=== PATIENT | male | born 2000 | race Caucasian/White ===

== ENCOUNTER 2023-01-27 17:09 | Inpatient (IN) | payer MEDICAID, OTHER, SELFPAY ==
[2023-01-27 17:13] VITALS: BP 141/86; PULSE 88; RESP 18; TEMP 36.1; O2SAT 97; BMI 43.4
--- NOTE | 2023-01-27 17:23 | ED_ITS ---
HPI - Psych General Chief Complaint: Psychiatric Symptoms <Nakia Dvaies NP - Last Filed: 01/27/23 17:26> Stated Complaint: hearing voices, not sleeping <Nakia Davies NP - Last Filed: 01/27/23 17:26> Time Seen by Provider: 01/27/23 17:35 <Nakia Davies NP - Last Filed: 01/27/23 17:26> Source: patient and family <Jean-Paul Richards MD - Last Filed: 01/28/23 01:08> Mode of arrival: ambulatory <Jean-Paul Richards MD - Last Filed: 01/28/23 01:08> Limitations: no limitations <Jean-Paul Richards MD - Last Filed: 01/28/23 01:08> History of Present Illness HPI Narrative: Patient with history of schizoaffective disorder on olanzapine brought by father as he was hearing voices with visual hallucination not taking his medication no SI or HI patient denies any complaints when questions does not know why he is here <Jean-Paul Richards MD - Last Filed: 01/28/23 01:08> Related Data Home Medications: Home Medications Medication Instructions Recorded Confirmed olanzapine 5 mg tablet 5 mg PO DAILY 01/27/23 01/27/23 <Nakia Davies NP - Last Filed: 01/27/23 17:26> Allergies/Adverse Reactions: Allergies Allergy/AdvReac Type Severity Reaction Status Date / Time No Known Allergies Allergy Verified 01/27/23 17:17 <Nakia Davies NP - Last Filed: 01/27/23 17:26> Review of Systems Review of Systems: Yes all other systems are reviewed and are negative <Jean-Paul Richards MD - Last Filed: 01/28/23 01:08> [facility] Social History Social History: Social History Advance Directives: No Advance Directives Information Provided: No Healthcare Proxy: No Guardian: No <Nakia Davies NP - Last Filed: 01/27/23 17:26> Physical Exam Vital Signs: Vital Signs: Last Vital Signs Temp 97.3 F 01/28/23 02:31 Pulse 66 01/28/23 02:31 Resp 16 01/28/23 02:31 BP 161/104 H 01/28/23 02:31 Pulse Ox 100 01/28/23 02:31 O2 Del Method Room Air 01/28/23 02:31 BMI result Body Mass Index 43.4 <Nakia Davies NP - Last Filed: 01/27/23 17:26> Vital Signs: Last Vital Signs Temp 97.3 F 01/28/23 02:31 Pulse 66 01/28/23 02:31 Resp 16 01/28/23 02:31 BP 161/104 H 01/28/23 02:31 Pulse Ox 100 01/28/23 02:31 O2 Del Method Room Air 01/28/23 02:31 BMI result Body Mass Index 43.4 <Jean-Paul Richards MD - Last Filed: 01/28/23 01:08> Vital Signs: Last Vital Signs Temp 97.3 F 01/28/23 02:31 Pulse 66 01/28/23 02:31 Resp 16 01/28/23 02:31 BP 161/104 H 01/28/23 02:31 Pulse Ox 100 01/28/23 02:31 O2 Del Method Room Air 01/28/23 02:31 BMI result Body Mass Index 43.4 <Jimbo Ponce MD - Last Filed: 01/28/23 07:35> Appearance: Alert. Oriented X3. No acute distress. Eyes: PERRLA, No Nystagmus ENT: Pharynx normal. Oral Mucosa moist Neck: Normal inspection. Neck supple. CVS: Normal heart rate and rhythm. Pulses normal. Respiratory: No respiratory distress. Equal air entry bilateral, no wheezing/rales/rhonchi Abdomen: Soft and nontender. Bowel sounds are present, no mass palpable, no CVA tenderness Skin: Skin warm and dry. Normal skin color. Normal skin turgor. Extremities: No lower extremity edema. No calf tenderness psych: Mood stable no SA/HI denies any hallucinations or delusions Neuro: Oriented X 3. No motor deficit. No sensory deficit.No cerebellar signs , cranial nerves II-XII intact <Jean-Paul Richards MD - Last Filed: 01/28/23 01:08> Course Course Course Narrative: This is a rapid medical exam. Deferred additional HPI, ROS, PE to primary provider. 22 yo male here w/ hallucinations, stopped taking meds. Brought direct to behavioral pod <Nakia Davies NP - Last Filed: 01/27/23 17:26> Reevaluation(s) Reevaluation #1: 22-year-old male presenting for crisis evaluation. He recently stopped taking his medications. He presented with hallucinations. <Jimbo Ponce MD - Last Filed: 01/28/23 07:35> Time: 07:35 <Jimbo Ponce MD - Last Filed: 01/28/23 07:35> Medical Decision Making Medical Decision Making MDM Narrative: Patient with psychotic disorder will get care time involved pending that disposition <Jean-Paul Richards MD - Last Filed: 01/28/23 01:08> Lab Data [facility] Lab Attestation statement: I reviewed the patient's lab results. <Jean-Paul Richards MD - Last Filed: 01/28/23 01:08> Result Diagrams: 01/27/23 18:14 01/27/23 18:14 <Nakia Davies NP - Last Filed: 01/27/23 17:26> Labs: Lab Results 01/27/23 01/27/23 01/27/23 Range/Units 17:38 17:38 18:14 WBC 10.9 H (4.8-10.8) X10*3/uL RBC 5.00 (4.60-5.80) X10*6/uL Hgb 15.2 (14.0-18.0) g/dl Hct 44.8 (42.0-52.0) % MCV 89.6 (80.0-98.0) fL MCH 30.4 (27.0-33.0) pg MCHC 33.9 (31.0-36.0) g/dl RDW 13.6 (11.0-16.0) % Plt Count 387 (160-400) X10*3/uL MPV 9.4 (9.4-12.4) fL Immature Gran % (Auto) 0.6 H (0.0-0.4) % Neut % (Auto) 65.6 (45-73) % Lymph % (Auto) 24.8 (20-40) % [place] % (Auto) 6.3 (2-11) % Eos % (Auto) 2.0 (0-4) % Baso % (Auto) 0.7 (0-2) % Lymph # (Auto) 2.7 (1.2-4.9) X10*3/uL [place] # (Auto) 0.7 (0.1-1.2) X10*3/uL Eos # (Auto) 0.2 (0.0-0.4) X10*3/uL Baso # (Auto) 0.1 (0.0-0.2) X10*3/uL Abs Immat Gran (auto) 0.06 H (0.00-0.03) X10*3/uL Absolute Neuts (auto) 7.1 (2.0-8.3) x10*3/uL Absolute Nucleated RBC 0.000 (0.0-0.012) X10*3/uL Nucleated RBC % (auto) 0.0 (0.0-0.2) /100WBC Sodium (135-145) mmol/L Potassium (3.3-5.1) mmol/L Chloride (96-108) mmol/L Carbon Dioxide (22-29) mmol/L Anion Gap (12-20) BUN (9-16) mg/dL Creatinine (0.5-1.4) mg/dL Estim Creat Clear Calc Estimated GFR Random Glucose (60-115) mg/dL Calcium (8.4-10.2) mg/dL Total Bilirubin (0.0-1.0) mg/dL Direct Bilirubin (0.0-0.5) mg/dL AST (5-37) U/L ALT (0-40) U/L Alkaline Phosphatase (39-117) U/L Total Protein (6.5-8.0) g/dL Albumin (3.5-5.0) g/dL Urine Opiates Screen Not Detected (Not Detect) Urine Fentanyl Screen Not Detected (Not Detect) Ur Barbiturates Screen Not Detected (Not Detect) Ur Phencyclidine Scrn Not Detected (Not Detect) Ur Amphetamines Screen Not Detected (Not Detect) U Benzodiazepines Scrn Not Detected (Not Detect) Urine Cocaine Screen Not Detected (Not Detect) U Marijuana (THC) Screen POSITIVE H (Not Detect) Ethyl Alcohol mg/dL COVID-19 ([facility]) Negative (Negative) COVID-19 Clin Com See Note 01/27/23 01/27/23 Range/Units 18:14 18:14 WBC (4.8-10.8) X10*3/uL RBC (4.60-5.80) X10*6/uL Hgb (14.0-18.0) g/dl Hct (42.0-52.0) % MCV (80.0-98.0) fL MCH (27.0-33.0) pg MCHC (31.0-36.0) g/dl RDW (11.0-16.0) % Plt Count (160-400) X10*3/uL MPV (9.4-12.4) fL Immature Gran % (Auto) (0.0-0.4) % Neut % (Auto) (45-73) % Lymph % (Auto) (20-40) % [place] % (Auto) (2-11) % Eos % (Auto) (0-4) % Baso % (Auto) (0-2) % Lymph # (Auto) (1.2-4.9) X10*3/uL [place] # (Auto) (0.1-1.2) X10*3/uL Eos # (Auto) (0.0-0.4) X10*3/uL Baso # (Auto) (0.0-0.2) X10*3/uL Abs Immat Gran (auto) (0.00-0.03) X10*3/uL Absolute Neuts (auto) (2.0-8.3) x10*3/uL Absolute Nucleated RBC (0.0-0.012) X10*3/uL Nucleated RBC % (auto) (0.0-0.2) /100WBC Sodium 141 (135-145) mmol/L Potassium 3.8 (3.3-5.1) mmol/L Chloride 103 (96-108) mmol/L Carbon Dioxide 30 H (22-29) mmol/L Anion Gap 12 (12-20) BUN 10 (9-16) mg/dL Creatinine 1.12 (0.5-1.4) mg/dL Estim Creat Clear Calc 150.5 Estimated GFR > 60 Random Glucose 100 (60-115) mg/dL Calcium 9.9 (8.4-10.2) mg/dL Total Bilirubin 0.3 (0.0-1.0) mg/dL Direct Bilirubin 0.1 (0.0-0.5) mg/dL AST 28 (5-37) U/L ALT 46 H (0-40) U/L Alkaline Phosphatase 95 (39-117) U/L Total Protein 7.7 (6.5-8.0) g/dL Albumin 4.7 (3.5-5.0) g/dL Urine Opiates Screen (Not Detect) Urine Fentanyl Screen (Not Detect) Ur Barbiturates Screen (Not Detect) Ur Phencyclidine Scrn (Not Detect) Ur Amphetamines Screen (Not Detect) U Benzodiazepines Scrn (Not Detect) Urine Cocaine Screen (Not Detect) U Marijuana (THC) Screen (Not Detect) Ethyl Alcohol < 10 mg/dL COVID-19 ([facility]) (Negative) COVID-19 Clin Com <Nakia Davies NP - Last Filed: 01/27/23 17:26> Lab Results 01/27/23 01/27/23 01/27/23 Range/Units 17:38 17:38 18:14 WBC 10.9 H (4.8-10.8) X10*3/uL RBC 5.00 (4.60-5.80) X10*6/uL Hgb 15.2 (14.0-18.0) g/dl Hct 44.8 (42.0-52.0) % MCV 89.6 (80.0-98.0) fL MCH 30.4 (27.0-33.0) pg MCHC 33.9 (31.0-36.0) g/dl RDW 13.6 (11.0-16.0) % Plt Count 387 (160-400) X10*3/uL MPV 9.4 (9.4-12.4) fL Immature Gran % (Auto) 0.6 H (0.0-0.4) % Neut % (Auto) 65.6 (45-73) % Lymph % (Auto) 24.8 (20-40) % [place] % (Auto) 6.3 (2-11) % Eos % (Auto) 2.0 (0-4) % Baso % (Auto) 0.7 (0-2) % Lymph # (Auto) 2.7 (1.2-4.9) X10*3/uL [place] # (Auto) 0.7 (0.1-1.2) X10*3/uL Eos # (Auto) 0.2 (0.0-0.4) X10*3/uL Baso # (Auto) 0.1 (0.0-0.2) X10*3/uL Abs Immat Gran (auto) 0.06 H (0.00-0.03) X10*3/uL Absolute Neuts (auto) 7.1 (2.0-8.3) x10*3/uL Absolute Nucleated RBC 0.000 (0.0-0.012) X10*3/uL Nucleated RBC % (auto) 0.0 (0.0-0.2) /100WBC Sodium (135-145) mmol/L Potassium (3.3-5.1) mmol/L Chloride (96-108) mmol/L Carbon Dioxide (22-29) mmol/L Anion Gap (12-20) BUN (9-16) mg/dL Creatinine (0.5-1.4) mg/dL Estim Creat Clear Calc Estimated GFR Random Glucose (60-115) mg/dL Calcium (8.4-10.2) mg/dL Total Bilirubin (0.0-1.0) mg/dL Direct Bilirubin (0.0-0.5) mg/dL AST (5-37) U/L ALT (0-40) U/L Alkaline Phosphatase (39-117) U/L Total Protein (6.5-8.0) g/dL Albumin (3.5-5.0) g/dL Urine Opiates Screen Not Detected (Not Detect) Urine Fentanyl Screen Not Detected (Not Detect) Ur Barbiturates Screen Not Detected (Not Detect) Ur Phencyclidine Scrn Not Detected (Not Detect) Ur Amphetamines Screen Not Detected (Not Detect) U Benzodiazepines Scrn Not Detected (Not Detect) Urine Cocaine Screen Not Detected (Not Detect) U Marijuana (THC) Screen POSITIVE H (Not Detect) Ethyl Alcohol mg/dL COVID-19 ([facility]) Negative (Negative) COVID-19 Clin Com See Note 01/27/23 01/27/23 Range/Units 18:14 18:14 WBC (4.8-10.8) X10*3/uL RBC (4.60-5.80) X10*6/uL Hgb (14.0-18.0) g/dl Hct (42.0-52.0) % MCV (80.0-98.0) fL MCH (27.0-33.0) pg MCHC (31.0-36.0) g/dl RDW (11.0-16.0) % Plt Count (160-400) X10*3/uL MPV (9.4-12.4) fL Immature Gran % (Auto) (0.0-0.4) % Neut % (Auto) (45-73) % Lymph % (Auto) (20-40) % [place] % (Auto) (2-11) % Eos % (Auto) (0-4) % Baso % (Auto) (0-2) % Lymph # (Auto) (1.2-4.9) X10*3/uL [place] # (Auto) (0.1-1.2) X10*3/uL Eos # (Auto) (0.0-0.4) X10*3/uL Baso # (Auto) (0.0-0.2) X10*3/uL Abs Immat Gran (auto) (0.00-0.03) X10*3/uL Absolute Neuts (auto) (2.0-8.3) x10*3/uL Absolute Nucleated RBC (0.0-0.012) X10*3/uL Nucleated RBC % (auto) (0.0-0.2) /100WBC Sodium 141 (135-145) mmol/L Potassium 3.8 (3.3-5.1) mmol/L Chloride 103 (96-108) mmol/L Carbon Dioxide 30 H (22-29) mmol/L Anion Gap 12 (12-20) BUN 10 (9-16) mg/dL Creatinine 1.12 (0.5-1.4) mg/dL Estim Creat Clear Calc 150.5 Estimated GFR > 60 Random Glucose 100 (60-115) mg/dL Calcium 9.9 (8.4-10.2) mg/dL Total Bilirubin 0.3 (0.0-1.0) mg/dL Direct Bilirubin 0.1 (0.0-0.5) mg/dL AST 28 (5-37) U/L ALT 46 H (0-40) U/L Alkaline Phosphatase 95 (39-117) U/L Total Protein 7.7 (6.5-8.0) g/dL Albumin 4.7 (3.5-5.0) g/dL Urine Opiates Screen (Not Detect) Urine Fentanyl Screen (Not Detect) Ur Barbiturates Screen (Not Detect) Ur Phencyclidine Scrn (Not Detect) Ur Amphetamines Screen (Not Detect) U Benzodiazepines Scrn (Not Detect) Urine Cocaine Screen (Not Detect) U Marijuana (THC) Screen (Not Detect) Ethyl Alcohol < 10 mg/dL COVID-19 ([facility]) (Negative) COVID-19 Clin Com <Jean-Paul Richards MD - Last Filed: 01/28/23 01:08> Lab Results 01/27/23 01/27/23 01/27/23 Range/Units 17:38 17:38 18:14 WBC 10.9 H (4.8-10.8) X10*3/uL RBC 5.00 (4.60-5.80) X10*6/uL Hgb 15.2 (14.0-18.0) g/dl Hct 44.8 (42.0-52.0) % MCV 89.6 (80.0-98.0) fL MCH 30.4 (27.0-33.0) pg MCHC 33.9 (31.0-36.0) g/dl RDW 13.6 (11.0-16.0) % Plt Count 387 (160-400) X10*3/uL MPV 9.4 (9.4-12.4) fL Immature Gran % (Auto) 0.6 H (0.0-0.4) % Neut % (Auto) 65.6 (45-73) % Lymph % (Auto) 24.8 (20-40) % [place] % (Auto) 6.3 (2-11) % Eos % (Auto) 2.0 (0-4) % Baso % (Auto) 0.7 (0-2) % Lymph # (Auto) 2.7 (1.2-4.9) X10*3/uL [place] # (Auto) 0.7 (0.1-1.2) X10*3/uL Eos # (Auto) 0.2 (0.0-0.4) X10*3/uL Baso # (Auto) 0.1 (0.0-0.2) X10*3/uL Abs Immat Gran (auto) 0.06 H (0.00-0.03) X10*3/uL Absolute Neuts (auto) 7.1 (2.0-8.3) x10*3/uL Absolute Nucleated RBC 0.000 (0.0-0.012) X10*3/uL Nucleated RBC % (auto) 0.0 (0.0-0.2) /100WBC Sodium (135-145) mmol/L Potassium (3.3-5.1) mmol/L Chloride (96-108) mmol/L Carbon Dioxide (22-29) mmol/L Anion Gap (12-20) BUN (9-16) mg/dL Creatinine (0.5-1.4) mg/dL Estim Creat Clear Calc Estimated GFR Random Glucose (60-115) mg/dL Calcium (8.4-10.2) mg/dL Total Bilirubin (0.0-1.0) mg/dL Direct Bilirubin (0.0-0.5) mg/dL AST (5-37) U/L ALT (0-40) U/L Alkaline Phosphatase (39-117) U/L Total Protein (6.5-8.0) g/dL Albumin (3.5-5.0) g/dL Urine Opiates Screen Not Detected (Not Detect) Urine Fentanyl Screen Not Detected (Not Detect) Ur Barbiturates Screen Not Detected (Not Detect) Ur Phencyclidine Scrn Not Detected (Not Detect) Ur Amphetamines Screen Not Detected (Not Detect) U Benzodiazepines Scrn Not Detected (Not Detect) Urine Cocaine Screen Not Detected (Not Detect) U Marijuana (THC) Screen POSITIVE H (Not Detect) Ethyl Alcohol mg/dL COVID-19 ([facility]) Negative (Negative) COVID-19 Clin Com See Note 01/27/23 01/27/23 Range/Units 18:14 18:14 WBC (4.8-10.8) X10*3/uL RBC (4.60-5.80) X10*6/uL Hgb (14.0-18.0) g/dl Hct (42.0-52.0) % MCV (80.0-98.0) fL MCH (27.0-33.0) pg MCHC (31.0-36.0) g/dl RDW (11.0-16.0) % Plt Count (160-400) X10*3/uL MPV (9.4-12.4) fL Immature Gran % (Auto) (0.0-0.4) % Neut % (Auto) (45-73) % Lymph % (Auto) (20-40) % [place] % (Auto) (2-11) % Eos % (Auto) (0-4) % Baso % (Auto) (0-2) % Lymph # (Auto) (1.2-4.9) X10*3/uL [place] # (Auto) (0.1-1.2) X10*3/uL Eos # (Auto) (0.0-0.4) X10*3/uL Baso # (Auto) (0.0-0.2) X10*3/uL Abs Immat Gran (auto) (0.00-0.03) X10*3/uL Absolute Neuts (auto) (2.0-8.3) x10*3/uL Absolute Nucleated RBC (0.0-0.012) X10*3/uL Nucleated RBC % (auto) (0.0-0.2) /100WBC Sodium 141 (135-145) mmol/L Potassium 3.8 (3.3-5.1) mmol/L Chloride 103 (96-108) mmol/L Carbon Dioxide 30 H (22-29) mmol/L Anion Gap 12 (12-20) BUN 10 (9-16) mg/dL Creatinine 1.12 (0.5-1.4) mg/dL Estim Creat Clear Calc 150.5 Estimated GFR > 60 Random Glucose 100 (60-115) mg/dL Calcium 9.9 (8.4-10.2) mg/dL Total Bilirubin 0.3 (0.0-1.0) mg/dL Direct Bilirubin 0.1 (0.0-0.5) mg/dL AST 28 (5-37) U/L ALT 46 H (0-40) U/L Alkaline Phosphatase 95 (39-117) U/L Total Protein 7.7 (6.5-8.0) g/dL Albumin 4.7 (3.5-5.0) g/dL Urine Opiates Screen (Not Detect) Urine Fentanyl Screen (Not Detect) Ur Barbiturates Screen (Not Detect) Ur Phencyclidine Scrn (Not Detect) Ur Amphetamines Screen (Not Detect) U Benzodiazepines Scrn (Not Detect) Urine Cocaine Screen (Not Detect) U Marijuana (THC) Screen (Not Detect) Ethyl Alcohol < 10 mg/dL COVID-19 ([facility]) (Negative) COVID-19 Clin Com <Jimbo Ponce MD - Last Filed: 01/28/23 07:35> Discharge Plan Discharge Clinical Impression: Chronic schizophrenia <Nakia Davies NP - Last Filed: 01/27/23 17:26> Patient Disposition: Still a Patient <Nakia Davies NP - Last Filed: 01/27/23 17:26> Prescriptions: No Action olanzapine 5 mg tablet 5 mg PO DAILY <Nakia Davies NP - Last Filed: 01/27/23 17:26> Interventions: [place]-Suicide Risk Severity Scale Last Done: 01/28/23 01:17 <Nakia Davies NP - Last Filed: 01/27/23 17:26>
[2023-01-27 17:55] LABS: Amphetamine Screen Urine Not Detected (Not Detect); Barbiturates, Urine Not Detected (Not Detect); Benzodiazepines Screen Urine Not Detected (Not Detect); Cannabinoid Screen Urine POSITIVE (Not Detect); Cocaine Screen Urine Not Detected (Not Detect); Fentanyl, urine Not Detected (Not Detect); Opiate Screen Urine Not Detected (Not Detect); Phencyclidine Screen Urine Not Detected (Not Detect)
[2023-01-27 18:02] LABS: COVID-19 Test Negative (Negative); IDNOW Serial# BCCEAD1C
[2023-01-27 18:18] LABS: MANUAL DIFF FLAG NO
[2023-01-27 18:27] LABS: Basophils Absolute Auto 0.1 X10*3/uL (0.0-0.2); Basophils Percent Auto 0.7 % (0-2); Eosinophils Absolute Auto 0.2 X10*3/uL (0.0-0.4); Hematocrit 44.8 % (42.0-52.0); Hemoglobin 15.2 g/dl (14.0-18.0); Imm Gran Abs Auto 0.06 X10*3/uL (0.00-0.03); Imm Gran Pct Auto 0.6 % (0.0-0.4); Lymphocytes Absolute Auto 2.7 X10*3/uL (1.2-4.9); Lymphocytes Percent Auto 24.8 % (20-40); Mean Corpuscular HGB Conc 33.9 g/dl (31.0-36.0); Mean Corpuscular Hemoglobin 30.4 pg (27.0-33.0); Mean Corpuscular Volume 89.6 fL (80.0-98.0); Mean Platelet Volume 9.4 fL (9.4-12.4); Monocytes Absolute Auto 0.7 X10*3/uL (0.1-1.2); Monocytes Percent Auto 6.3 % (2-11); Neutrophils Absolute Auto 7.1 x10*3/uL (2.0-8.3); Neutrophils Percent Auto 65.6 % (45-73); Platelet Count 387 X10*3/uL (160-400); Red Cell Distribution Width 13.6 % (11.0-16.0); White Blood Count 10.9 X10*3/uL (4.8-10.8)
[2023-01-27 18:45] LABS: Ethanol < 10 mg/dL
[2023-01-27 18:46] LABS: Alanine Aminotransferase 46 U/L (0-40); Albumin Level 4.7 g/dL (3.5-5.0); Alkaline Phosphatase 95 U/L (39-117); Anion Gap 12 (12-20); Aspartate Amino Transferase 28 U/L (5-37); Bilirubin Direct 0.1 mg/dL (0.0-0.5); Bilirubin Total 0.3 mg/dL (0.0-1.0); Blood Urea Nitrogen 10 mg/dL (9-16); Calcium 9.9 mg/dL (8.4-10.2); Carbon Dioxide 30 mmol/L (22-29); Chloride 103 mmol/L (96-108); Creatinine Clr Calc Pharmacy 150.5; Estimated Glomerular Filt Rate > 60; Glucose Random 100 mg/dL (60-115); Potassium 3.8 mmol/L (3.3-5.1); Sodium 141 mmol/L (135-145); Total Protein 7.7 g/dL (6.5-8.0)
--- NOTE | 2023-01-28 | ECG_ITS ---
Test Reason : check qt Blood Pressure : / mmHG Vent. Rate : 078 BPM Atrial Rate : 078 BPM P-R Int : 142 ms QRS Dur : 114 ms QT Int : 380 ms P-R-T Axes : 035 047 029 degrees QTc Int : 433 ms Normal sinus rhythm Normal ECG No previous ECGs available Referred By: Jimbo Ponce Electronically Signed By:JACLYN SHARP
[2023-01-28 02:31] VITALS: BP 161/104; PULSE 66; RESP 16; TEMP 36.3; O2SAT 100
--- NOTE | 2023-01-28 05:47 | PC.NURSE ---
Patient slept through the night, no distress observed/reported, behavior non concerning, med rec completed/approved, disposition per care team is section 12 inpatient bed search, VSS, will continue to monitor.
[2023-01-28] MEDS: OLANZapine 5 MG TABLET PO ×2 (10:03→20:22)
--- NOTE | 2023-01-28 10:05 | PC.NURSE ---
patient awake, watching tv in bed. calm and cooperative with staff. will CTM
[2023-01-28 13:12] VITALS: BP 103/63; PULSE 65; RESP 16; TEMP 36.8; O2SAT 97
--- NOTE | 2023-01-28 14:39 | PC.NURSE ---
nurse to nurse report to Puneet Wiggins RN
[2023-01-28 17:13] VITALS: BP 130/80; PULSE 74; RESP 16; TEMP 36.2; O2SAT 99; BMI 42.1
[2023-01-28 18:00] VITALS: BP 126/74; PULSE 69; RESP 16; TEMP 36.4; O2SAT 98
--- NOTE | 2023-01-28 21:48 | PC.ADMIT ---
Pt is a 22 years old male admitted on CV for verbalizing SI. Pt is alert but not oriented during assessment. VSS, covid negative and tox screen is positive for THC. Pt was brought in secondary to experiencing Auditory Hallucination. Pt is reported by parents to be med non compliant. Pt appears vague, disheveled and unreliable for information during assessment. Pt mood is irritable, affect is congruent, speech is pressured and eye contact is darting. Insight, judgment and eye contact is poor. Pt denies depression and anxiety, endorses SI. Pt has history of being violent towards his father. Admission orders obtained.
[2023-01-29 06:00] VITALS: BP 137/90; PULSE 82; RESP 16; TEMP 36.3; O2SAT 99
[2023-01-29] MEDS: OLANZapine 5 MG TABLET PO ×2 (08:16→20:04)
[2023-01-29 08:21] LABS: Estimated Average Glucose 100 mg/dL; Hemoglobin A1c % 5.1 %
[2023-01-29 08:38] LABS: Cholesterol 153 mg/dL; HDL Cholesterol 30 mg/dL; LDL Cholesterol Calculated 70 mg/dl; Magnesium 2.3 mg/dL (1.6-2.6); Triglycerides 269 mg/dL
[2023-01-29] MEDS: Acetaminophen 325 MG TABLET 650 MG PO (08:55)
[2023-01-29 09:08] LABS: Folate 14.5 ng/mL (> or = 4.0); Free T4 (Free Thyroxine) 0.89 ng/dL (0.71-1.85); Thyroid Stimulating Hormone 0.62 uIU/mL (0.32-4.0); Vitamin B12 531 pg/mL (200-900)
[2023-01-29 16:45] VITALS: BP 135/90; PULSE 100; TEMP 36.1
--- NOTE | 2023-01-29 17:16 | HO.PSYADMNOT ---
HPI Date of Service: 01/29/23 Chief Complaint: Schizophrenia Sources of Information: patient interviewed, chart reviewed and crisis/core team assessment reviewed HPI Subjective Notes: [place] Warning and Conditional Voluntary Healthcare Proxy: No Guardianship: No Medical Problems Affecting Mental Status: No Narrative: 22 yo male, history of schizophrenia, brought to the ER with parents. Pt has been off his medications and has become symptomatic per their report. Pt reports today, he is here for an evaluation. He is talkative but a poor historian in our meeting today Past Psychiatric History: Denies hx of in pt or out pt care Trials: Olanzapine Medical Evaluation Reviewed: Yes PMF Narrative: Back pain Acne Family History: denies Social History: Lives with father. Not working, wants to apply to drive [employer] [place], 5 siblings No children, graduated high school, has done some college enjoys self-tattos, and walking Substance History: cannabis on occasion- helps inflammation Trauma History: denies Diagnostics Vital Signs (24Hr): Vital Signs - 24 hr 01/28/23 18:00 01/29/23 06:00 01/29/23 16:45 Temperature 97.6 F 97.3 F 97 F Pulse Rate 69 82 100 Respiratory Rate 16 16 Blood Pressure 126/74 137/90 H 135/90 H Pulse Oximetry 98 99 Oxygen Delivery Method Room Air Room Air BMI result Body Mass Index 42.1 Labs 01/27/23 18:14 01/27/23 18:14 Labs: Laboratory Results - last 48 hr 01/27/23 01/27/23 01/27/23 17:38 17:38 18:14 WBC 10.9 H RBC 5.00 Hgb 15.2 Hct 44.8 MCV 89.6 MCH 30.4 MCHC 33.9 RDW 13.6 Plt Count 387 MPV 9.4 Immature Gran % (Auto) 0.6 H Neut % (Auto) 65.6 Lymph % (Auto) 24.8 [place] % (Auto) 6.3 Eos % (Auto) 2.0 Baso % (Auto) 0.7 Lymph # (Auto) 2.7 [place] # (Auto) 0.7 Eos # (Auto) 0.2 Baso # (Auto) 0.1 Abs Immat Gran (auto) 0.06 H Absolute Neuts (auto) 7.1 Absolute Nucleated RBC 0.000 Nucleated RBC % (auto) 0.0 Sodium Potassium Chloride Carbon Dioxide Anion Gap BUN Creatinine Estim Creat Clear Calc Estimated GFR Random Glucose Estimat Average Glucose Hemoglobin A1c % Calcium Magnesium Total Bilirubin Direct Bilirubin AST ALT Alkaline Phosphatase Total Protein Albumin Triglycerides Cholesterol LDL Cholesterol, Calc HDL Cholesterol Vitamin B12 Folate TSH Free T4 Urine Opiates Screen Not Detected Urine Fentanyl Screen Not Detected Ur Barbiturates Screen Not Detected Ur Phencyclidine Scrn Not Detected Ur Amphetamines Screen Not Detected U Benzodiazepines Scrn Not Detected Urine Cocaine Screen Not Detected U Marijuana (THC) Screen POSITIVE H Ethyl Alcohol COVID-19 ([facility]) Negative COVID-19 Clin Com See Note 01/27/23 01/27/23 01/29/23 18:14 18:14 08:03 WBC RBC Hgb Hct MCV MCH MCHC RDW Plt Count MPV Immature Gran % (Auto) Neut % (Auto) Lymph % (Auto) [place] % (Auto) Eos % (Auto) Baso % (Auto) Lymph # (Auto) [place] # (Auto) Eos # (Auto) Baso # (Auto) Abs Immat Gran (auto) Absolute Neuts (auto) Absolute Nucleated RBC Nucleated RBC % (auto) Sodium 141 Potassium 3.8 Chloride 103 Carbon Dioxide 30 H Anion Gap 12 BUN 10 Creatinine 1.12 Estim Creat Clear Calc 150.5 Estimated GFR > 60 Random Glucose 100 Estimat Average Glucose 100 Hemoglobin A1c % 5.1 Calcium 9.9 Magnesium Total Bilirubin 0.3 Direct Bilirubin 0.1 AST 28 ALT 46 H Alkaline Phosphatase 95 Total Protein 7.7 Albumin 4.7 Triglycerides Cholesterol LDL Cholesterol, Calc HDL Cholesterol Vitamin B12 Folate TSH Free T4 Urine Opiates Screen Urine Fentanyl Screen Ur Barbiturates Screen Ur Phencyclidine Scrn Ur Amphetamines Screen U Benzodiazepines Scrn Urine Cocaine Screen U Marijuana (THC) Screen Ethyl Alcohol < 10 COVID-19 ([facility]) COVID-19 [facility] Com 01/29/23 08:03 WBC RBC Hgb Hct MCV MCH MCHC RDW Plt Count MPV Immature Gran % (Auto) Neut % (Auto) Lymph % (Auto) [place] % (Auto) Eos % (Auto) Baso % (Auto) Lymph # (Auto) [place] # (Auto) Eos # (Auto) Baso # (Auto) Abs Immat Gran (auto) Absolute Neuts (auto) Absolute Nucleated RBC Nucleated RBC % (auto) Sodium Potassium Chloride Carbon Dioxide Anion Gap BUN Creatinine Estim Creat Clear Calc Estimated GFR Random Glucose Estimat Average Glucose Hemoglobin A1c % Calcium Magnesium 2.3 Total Bilirubin Direct Bilirubin AST ALT Alkaline Phosphatase Total Protein Albumin Triglycerides 269 Cholesterol 153 LDL Cholesterol, Calc 70 HDL Cholesterol 30 Vitamin B12 531 Folate 14.5 TSH 0.62 Free T4 0.89 Urine Opiates Screen Urine Fentanyl Screen Ur Barbiturates Screen Ur Phencyclidine Scrn Ur Amphetamines Screen U Benzodiazepines Scrn Urine Cocaine Screen U Marijuana (THC) Screen Ethyl Alcohol COVID-19 ([facility]) COVID-19 Clin Com Meds/Allergies Meds Home Medications Medication Instructions Recorded Confirmed Type olanzapine 5 mg tablet 5 mg PO DAILY 01/27/23 01/27/23 History Allergies Allergies Allergy/AdvReac Type Severity Reaction Status Date / Time No Known Allergies Allergy Verified 01/27/23 17:17 Mental Status Exam Mental Status Exam Patient Appearance: Disheveled Patient Orientation: Person, Place, Time and Situation Level of Consciousness: Alert Patient Behavior: Guarded and Suspicious Mood Description: Constricted Affect Description: Constricted Ability to Follow Directions: Fair Speech Pattern: Spontaneous Speech Memory Description: Episodic Impaired Hallucinations: Auditory Delusions: Paranoid Ideation Thought Process: Distracted Thought Content: positive for Perseveration Judgement: Fair Assessment & Plan Assessment & Plan (1) Chronic schizophrenia: Status: Acute Code(s): F20.9 - Schizophrenia, unspecified Plan 22 yo male, hx of schizophrenia, current decompensation per parents report due to being off meds (Olanzapine), very poor historian today. Plan: Increase Olanzapine to 5 mg bid Collateral contact Observe in milieu Patient educated on: medication risk/benefits Informed Consent: further education needed Reason for continued inpatient stay Substantial Risk for: rapid decompensation Statement Statement: I have reviewed the history and physical and performed a pertinent examination on my patient. No changes have occurred unless specified. If the History and Physical was not performed prior to admission, the Hospitalist's service will be consulted for completing the admission physical. Time Spent With Patient Time: Total time managing care of this patient today ____ minutes.
[2023-01-30 09:08] VITALS: BP 156/102; PULSE 96; RESP 14; TEMP 36.4
[2023-01-30] MEDS: OLANZapine 5 MG TABLET PO ×2 (09:10→20:22)
--- NOTE | 2023-01-30 10:56 | P.PNPSI_ITS ---
Subjective Subjective Date of Service: 01/30/23 Reason For Visit: Schizophrenia Subjective Notes: Conditional Voluntary Healthcare Proxy: No Guardianship: No Medical Problems Affecting Mental Status: No Interim History: Patient was seen and discussed in rounds today. Records and plans were iwona sorensen. He is settling in. He is tolerating the increased Zyprexa dosage. He continues to be isolative, guarded and his responding to internal stimuli. Eating and sleeping adequately. No complaints. No changes were made today Review of Systems Review of Systems Yes all other systems are reviewed and are negative Mental Status Exam Mental Status Exam Patient Appearance: Disheveled Patient Orientation: Person, Place, Time and Situation Level of Consciousness: Alert Patient Behavior: Guarded and Suspicious Mood Description: Constricted Affect Description: Constricted Ability to Follow Directions: Fair Speech Pattern: Spontaneous Speech Memory Description: Episodic Impaired Hallucinations: Auditory Delusions: Paranoid Ideation Thought Process: Distracted Thought Content: positive for [place] Judgement: Fair Diagnostics Vital Signs (24Hr): Vital Signs - 24 hr 01/29/23 16:45 01/30/23 09:08 Temperature 97 F 97.6 F Pulse Rate 100 96 Respiratory Rate 14 Blood Pressure 135/90 H 156/102 H BMI result Body Mass Index 42.1 Labs 01/27/23 18:14 01/27/23 18:14 Labs: Laboratory Results - last 48 hr 01/29/23 01/29/23 08:03 08:03 Estimat Average Glucose 100 Hemoglobin A1c % 5.1 Magnesium 2.3 Triglycerides 269 Cholesterol 153 LDL Cholesterol, Calc 70 HDL Cholesterol 30 Vitamin B12 531 Folate 14.5 TSH 0.62 Free T4 0.89 Medications Medications Current Medications Acetaminophen (Acetaminophen 325 Mg Tablet) 650 mg PO Q6H PRN PRN Reason: Headache/Pain Mild Scale (1-3) Last Admin: 01/29/23 08:55 Dose: 650 mg Al Hydroxide/Mg Hydroxide (Magnesium Hydrox/Alum Hydrox 30 Ml Oral.Susp) 30 ml PO Q6H PRN PRN Reason: Heartburn/Nausea Hydroxyzine HCl (Hydroxyzine Hcl 25 Mg Tablet) 25 mg PO Q6H PRN PRN Reason: Anxiety Lorazepam (Lorazepam 1 Mg Tablet) 1 mg PO Q4H PRN PRN Reason: anxiety, agitation Magnesium Hydroxide (Milk Of Magnesia 30 Ml Oral.Susp) 30 ml PO DAILY PRN PRN Reason: Constipation Olanzapine (Olanzapine 5 Mg Tablet) 5 mg PO BID MIRELLA Last Admin: 01/30/23 09:10 Dose: 5 mg Trazodone HCl (Trazodone Hcl 50 Mg Tablet) 50 mg PO BEDTIME MRX1 PRN PRN Reason: Insomnia Allergies Allergies Allergy/AdvReac Type Severity Reaction Status Date / Time No Known Allergies Allergy Verified 01/27/23 17:17 Assessment & Plan Assessment & Plan (1) Chronic schizophrenia: Status: Acute Code(s): F20.9 - Schizophrenia, unspecified Plan 22 yo male, hx of schizophrenia, current decompensation per parents report due to being off meds (Olanzapine), very poor historian today. Plan: Increase Olanzapine to 5 mg bid Collateral contact Observe in milieu 01/30: Continue current regimen and plans Reason for continued inpatient stay Substantial Risk for: med/psych decompensation Time Spent With Patient Time: Total time managing care of this patient today ____ minutes.
[2023-01-30] MEDS: Acetaminophen 325 MG TABLET 650 MG PO (11:17)
[2023-01-30] MEDS: hydrOXYzine HCL 25 MG TABLET PO (14:03)
[2023-01-30 18:00] VITALS: BP 156/70; PULSE 97; TEMP 36.9; O2SAT 98
[2023-01-31 09:03] VITALS: BP 144/90; PULSE 96; RESP 14; TEMP 37.1; O2SAT 99
[2023-01-31] MEDS: OLANZapine 5 MG TABLET PO (09:04)
--- NOTE | 2023-01-31 10:07 | P.PNPSI_ITS ---
Subjective Subjective Date of Service: 01/31/23 Reason For Visit: Schizophrenia Subjective Notes: Conditional Voluntary Healthcare Proxy: No Guardianship: No Medical Problems Affecting Mental Status: No Interim History: Patient was seen and discussed in rounds today. Records and plans were iwona sorensen. He has been isolative but pleasant and cooperative. He is visible from time to time. He is somewhat guarded. He has been compliant. No complaints or side effects. No SI. No changes were made today Medication Compliance: Yes Side effects from medications: No Attending Groups: Yes Review of Systems Review of Systems Yes all other systems are reviewed and are negative Mental Status Exam Mental Status Exam Narrative: In today's visit, he is alert, oriented and pleasant. Minimally interactive. Better eye contact. Affect is constricted. No acute signs of psychosis but appears to be guarded. No SI. Cognitively is grossly intact. Judgment is and Diagnostics Vital Signs (24Hr): Vital Signs - 24 hr 01/30/23 18:00 01/31/23 09:03 Temperature 98.5 F 98.7 F Pulse Rate 97 96 Respiratory Rate 14 Blood Pressure 156/70 H 144/90 H Pulse Oximetry 98 99 Oxygen Delivery Method Room Air Room Air BMI result Body Mass Index 42.1 Labs 01/27/23 18:14 01/27/23 18:14 Medications Medications Current Medications Acetaminophen (Acetaminophen 325 Mg Tablet) 650 mg PO Q6H PRN PRN Reason: Headache/Pain Mild Scale (1-3) Last Admin: 01/30/23 11:17 Dose: 650 mg Al Hydroxide/Mg Hydroxide (Magnesium Hydrox/Alum Hydrox 30 Ml Oral.Susp) 30 ml PO Q6H PRN PRN Reason: Heartburn/Nausea Hydroxyzine HCl (Hydroxyzine Hcl 25 Mg Tablet) 25 mg PO Q6H PRN PRN Reason: Anxiety Last Admin: 01/30/23 14:03 Dose: 25 mg Lorazepam (Lorazepam 1 Mg Tablet) 1 mg PO Q4H PRN PRN Reason: anxiety, agitation Magnesium Hydroxide (Milk Of Magnesia 30 Ml Oral.Susp) 30 ml PO DAILY PRN PRN Reason: Constipation Olanzapine (Olanzapine 5 Mg Tablet) 5 mg PO BID MIRELLA Last Admin: 01/31/23 09:04 Dose: 5 mg Trazodone HCl (Trazodone Hcl 50 Mg Tablet) 50 mg PO BEDTIME MRX1 PRN PRN Reason: Insomnia Allergies Allergies Allergy/AdvReac Type Severity Reaction Status Date / Time No Known Allergies Allergy Verified 01/27/23 17:17 Assessment & Plan Assessment & Plan (1) Chronic schizophrenia: Status: Acute Code(s): F20.9 - Schizophrenia, unspecified Plan 22 yo male, hx of schizophrenia, current decompensation per parents report due to being off meds (Olanzapine), very poor historian today. Plan: Increase Olanzapine to 5 mg bid Collateral contact Observe in milieu 01/30: Continue current regimen and plans 01/31: Continue current plans and regimen Reason for continued inpatient stay Substantial Risk for: med/psych decompensation Time Spent With Patient Time: Total time managing care of this patient today ____ minutes.
[2023-01-31] MEDS: Acetaminophen 325 MG TABLET 650 MG PO (14:13)
[2023-01-31 16:26] VITALS: BP 132/84; PULSE 109; TEMP 36.3; O2SAT 95
--- NOTE | 2023-01-31 23:27 | PC.NURSE ---
Patient was offered his HS Olanzapine and opted to wait for awhile . Patient was asleep when this ticket writer checked on him to give medication.
[2023-02-01 06:00] VITALS: BP 135/84; PULSE 100; RESP 14; TEMP 37; O2SAT 94
[2023-02-01] MEDS: OLANZapine 5 MG TABLET PO ×2 (08:32→20:04)
[2023-02-01] MEDS: Acetaminophen 325 MG TABLET 650 MG PO (12:00)
--- NOTE | 2023-02-01 15:44 | P.PNPSI_ITS ---
Subjective Subjective Date of Service: 02/01/23 Reason For Visit: Schizophrenia Interim History: found in his room lyting on his bed, awake. vague responses, unclear what his cognitive and thought organization status is. no questions or complaints. Mental Status Exam Mental Status Exam Narrative: In today's visit, he is alert, oriented and pleasant. Minimally interactive. Better eye contact. Affect is constricted. No acute signs of psychosis but appears to be guarded. No SI. Cognitively is grossly intact. Judgment is and Diagnostics Vital Signs (24Hr): Vital Signs - 24 hr 01/31/23 16:26 02/01/23 06:00 Temperature 97.4 F 98.6 F Pulse Rate 109 H 100 Respiratory Rate 14 Blood Pressure 132/84 135/84 Pulse Oximetry 95 94 Oxygen Delivery Method Room Air Room Air BMI result Body Mass Index 42.1 Labs 01/27/23 18:14 01/27/23 18:14 Medications Medications Current Medications Acetaminophen (Acetaminophen 325 Mg Tablet) 650 mg PO Q6H PRN PRN Reason: Headache/Pain Mild Scale (1-3) Last Admin: 02/01/23 12:00 Dose: 650 mg Al Hydroxide/Mg Hydroxide (Magnesium Hydrox/Alum Hydrox 30 Ml Oral.Susp) 30 ml PO Q6H PRN PRN Reason: Heartburn/Nausea Hydroxyzine HCl (Hydroxyzine Hcl 25 Mg Tablet) 25 mg PO Q6H PRN PRN Reason: Anxiety Last Admin: 01/30/23 14:03 Dose: 25 mg Lorazepam (Lorazepam 1 Mg Tablet) 1 mg PO Q4H PRN PRN Reason: anxiety, agitation Magnesium Hydroxide (Milk Of Magnesia 30 Ml Oral.Susp) 30 ml PO DAILY PRN PRN Reason: Constipation Olanzapine (Olanzapine 5 Mg Tablet) 5 mg PO BID [facility] Last Admin: 02/01/23 08:32 Dose: 5 mg Trazodone HCl (Trazodone Hcl 50 Mg Tablet) 50 mg PO BEDTIME MRX1 PRN PRN Reason: Insomnia Allergies Allergies Allergy/AdvReac Type Severity Reaction Status Date / Time No Known Allergies Allergy Verified 01/27/23 17:17 Assessment & Plan Assessment & Plan (1) Chronic schizophrenia: Status: Acute Code(s): F20.9 - Schizophrenia, unspecified Plan 22 yo male, hx of schizophrenia, current decompensation per parents report due to being off meds (Olanzapine), very poor historian today. Plan: Increase Olanzapine to 5 mg bid Collateral contact Observe in milieu 01/30: Continue current regimen and plans 01/31: Continue current plans and regimen 02/01: no change in mgmt. Reason for continued inpatient stay Substantial Risk for: inability to function and rapid decompensation Time Spent With Patient Time: Total time managing care of this patient today ____ minutes.
[2023-02-01 16:26] VITALS: BP 143/83; PULSE 99; TEMP 36.3
[2023-02-02] MEDS: OLANZapine 5 MG TABLET PO ×2 (09:11→20:33)
--- NOTE | 2023-02-02 09:49 | PC.NURSE ---
Pt signed a 3-day notice up on February 05. , KIMBERLYN, and UR aware.
[2023-02-02 10:23] VITALS: BP 135/89; PULSE 102; RESP 14; TEMP 36.6; O2SAT 99
[2023-02-02] MEDS: Acetaminophen 325 MG TABLET 650 MG PO (13:24)
--- NOTE | 2023-02-02 16:29 | HO.PSYCHPN ---
Subjective Subjective Date of Service: 02/02/23 Reason For Visit: Schizophrenia Subjective Notes: 3 Day (02/05/23) Healthcare Proxy: No Guardianship: No Medical Problems Affecting Mental Status: No Interim History: Three day notice to 02/05. Remains with symptoms of response to internal stimuli, self-dialoguing, paranoia. No behavioral dyscontrol, no agitation. He reports this is baseline for him at home Discussed family meeting which he agrees is appropriate to get parents feedback. Message left for pt's father to schedule. Discussed symptoms prior to admission which were reported. Pt explains that he went outside with less clothes due to weather, temperature. Discussed parents report of decline, stopping medicine. Pt reports he is willing to take medications. Medication Compliance: Yes Side effects from medications: No Attending Groups: No Review of Systems Acute medical concerns: No Medical Review of Systems: unchanged Mental Status Exam Mental Status Exam Patient Appearance: Appropriate Patient Orientation: Person, Place and Situation Level of Consciousness: Alert Patient Behavior: Appropriate, Talkative and Good Eye Contact Mood Description: Suspicious and Withdrawn Affect Description: Withdrawn and Flat Ability to Follow Directions: Good Speech Pattern: Spontaneous Speech and Soft-Spoken Memory Description: Episodic Impaired Hallucinations: Auditory Delusions: Present Perceptual Disturbances: Derealization Thought Process: Distracted Thought Content: positive for [place], positive for Circumstantial, positive for Preoccupation and positive for Tangential Judgement: Fair Diagnostics Vital Signs (24Hr): Vital Signs - 24 hr 02/02/23 10:23 Temperature 98 F Pulse Rate 102 H Respiratory Rate 14 Blood Pressure 135/89 Pulse Oximetry 99 Oxygen Delivery Method Room Air BMI result Body Mass Index 42.1 Labs 01/27/23 18:14 01/27/23 18:14 Medications Medications Current Medications Acetaminophen (Acetaminophen 325 Mg Tablet) 650 mg PO Q6H PRN PRN Reason: Headache/Pain Mild Scale (1-3) Last Admin: 02/02/23 13:24 Dose: 650 mg Al Hydroxide/Mg Hydroxide (Magnesium Hydrox/Alum Hydrox 30 Ml Oral.Susp) 30 ml PO Q6H PRN PRN Reason: Heartburn/Nausea Hydroxyzine HCl (Hydroxyzine Hcl 25 Mg Tablet) 25 mg PO Q6H PRN PRN Reason: Anxiety Last Admin: 01/30/23 14:03 Dose: 25 mg Lorazepam (Lorazepam 1 Mg Tablet) 1 mg PO Q4H PRN PRN Reason: anxiety, agitation Magnesium Hydroxide (Milk Of Magnesia 30 Ml Oral.Susp) 30 ml PO DAILY PRN PRN Reason: Constipation Olanzapine (Olanzapine 5 Mg Tablet) 5 mg PO BID MIRELLA Last Admin: 02/02/23 09:11 Dose: 5 mg Trazodone HCl (Trazodone Hcl 50 Mg Tablet) 50 mg PO BEDTIME MRX1 PRN PRN Reason: Insomnia Allergies Allergies Allergy/AdvReac Type Severity Reaction Status Date / Time No Known Allergies Allergy Verified 01/27/23 17:17 Assessment & Plan Assessment & Plan (1) Chronic schizophrenia: Status: Acute Code(s): F20.9 - Schizophrenia, unspecified Plan 22 yo male, hx of schizophrenia, current decompensation per parents report due to being off meds (Olanzapine), very poor historian today. Plan: Increase Olanzapine to 5 mg bid Collateral contact Observe in milieu 01/30: Continue current regimen and plans 01/31: Continue current plans and regimen 02/01: no change in mgmt. 02/02: Family meeting to discuss further planning for appropriate care Continue current regime. Tolerating increase in Olanzapine doses. Patient educated on: medication risk/benefits and therapeutic strategies Informed Consent: further education needed Reason for continued inpatient stay Substantial Risk for: rapid decompensation Time Spent With Patient Time: Total time managing care of this patient today ____ minutes.
[2023-02-02 18:21] VITALS: BP 134/87; PULSE 115; TEMP 36.9
[2023-02-03 06:00] VITALS: BP 139/90; PULSE 102; RESP 18
[2023-02-03] MEDS: OLANZapine 5 MG TABLET PO ×2 (08:42→20:05)
[2023-02-03] MEDS: Acetaminophen 325 MG TABLET 650 MG PO (13:04)
--- NOTE | 2023-02-03 16:51 | HO.PSYCHPN ---
Subjective Subjective Date of Service: 02/03/23 Reason For Visit: Schizophrenia Subjective Notes: 3 Day Healthcare Proxy: No Guardianship: No Medical Problems Affecting Mental Status: No Interim History: Tolerating regime with psychotic sx present. Three day notice to 02/05. Pt wanting discharge. Family meeting 02/04 to review-will ask pt to retract to continue treatment as he is not committable at this time. Medication Compliance: Yes Side effects from medications: No Attending Groups: No Review of Systems Acute medical concerns: No Medical Review of Systems: unchanged Mental Status Exam Mental Status Exam Patient Appearance: Appropriate Patient Orientation: Person, Place and Situation Level of Consciousness: Alert Patient Behavior: Appropriate, Talkative and Good Eye Contact Mood Description: Suspicious and Withdrawn Affect Description: Withdrawn and Flat Ability to Follow Directions: Good Speech Pattern: Spontaneous Speech and Soft-Spoken Memory Description: Episodic Impaired Hallucinations: Auditory Delusions: Present Perceptual Disturbances: Derealization Thought Process: Distracted Thought Content: positive for [place], positive for Circumstantial, positive for Preoccupation and positive for Tangential Judgement: Fair Diagnostics Vital Signs (24Hr): Vital Signs - 24 hr 02/02/23 18:21 02/03/23 06:00 Temperature 98.4 F Pulse Rate 115 H 102 H Respiratory Rate 18 Blood Pressure 134/87 139/90 H Oxygen Delivery Method Room Air BMI result Body Mass Index 42.1 Labs 01/27/23 18:14 01/27/23 18:14 Medications Medications Current Medications Acetaminophen (Acetaminophen 325 Mg Tablet) 650 mg PO Q6H PRN PRN Reason: Headache/Pain Mild Scale (1-3) Last Admin: 02/03/23 13:04 Dose: 650 mg Al Hydroxide/Mg Hydroxide (Magnesium Hydrox/Alum Hydrox 30 Ml Oral.Susp) 30 ml PO Q6H PRN PRN Reason: Heartburn/Nausea Hydroxyzine HCl (Hydroxyzine Hcl 25 Mg Tablet) 25 mg PO Q6H PRN PRN Reason: Anxiety Last Admin: 01/30/23 14:03 Dose: 25 mg Lorazepam (Lorazepam 1 Mg Tablet) 1 mg PO Q4H PRN PRN Reason: anxiety, agitation Magnesium Hydroxide (Milk Of Magnesia 30 Ml Oral.Susp) 30 ml PO DAILY PRN PRN Reason: Constipation Olanzapine (Olanzapine 5 Mg Tablet) 5 mg PO BID [facility] Last Admin: 02/03/23 08:42 Dose: 5 mg Trazodone HCl (Trazodone Hcl 50 Mg Tablet) 50 mg PO BEDTIME MRX1 PRN PRN Reason: Insomnia Allergies Allergies Allergy/AdvReac Type Severity Reaction Status Date / Time No Known Allergies Allergy Verified 01/27/23 17:17 Assessment & Plan Assessment & Plan (1) Chronic schizophrenia: Status: Acute Code(s): F20.9 - Schizophrenia, unspecified Plan 22 yo male, hx of schizophrenia, current decompensation per parents report due to being off meds (Olanzapine), very poor historian today. Plan: Increase Olanzapine to 5 mg bid Collateral contact Observe in milieu 01/30: Continue current regimen and plans 01/31: Continue current plans and regimen 02/01: no change in mgmt. 02/03/23- Continue current regime Family meeting 02/04. Patient educated on: therapeutic strategies Informed Consent: further education needed Reason for continued inpatient stay Substantial Risk for: rapid decompensation Time Spent With Patient Time: Total time managing care of this patient today ____ minutes.
[2023-02-03] MEDS: hydrOXYzine HCL 25 MG TABLET PO (18:23)
[2023-02-03 18:40] VITALS: BP 155/83; PULSE 110; TEMP 36.6
[2023-02-04 06:00] VITALS: BP 112/76; PULSE 87; RESP 14; TEMP 36.6; O2SAT 94
[2023-02-04] MEDS: OLANZapine 5 MG TABLET PO (08:28)
[2023-02-04] MEDS: hydrOXYzine HCL 25 MG TABLET PO (17:54)
--- NOTE | 2023-02-04 18:03 | P.PNPSI_ITS ---
Subjective Subjective Date of Service: 02/04/23 Reason For Visit: Schizophrenia Subjective Notes: 3 Day (02/05/23) Healthcare Proxy: No Guardianship: No Medical Problems Affecting Mental Status: No Interim History: Family meeting with patient, father, Jack BAKER. Pt refused to retract TDN, plans to discharge 02/05. He does not believe he has illness, does not believe he needs medicine, but will accept a dosage increase for discharge. He does not believe cannabis to be a problem for him. Discussed/reviewed sx seen in milieu. Today, team report pt was seen licking the window. Discussed. Pt's father discussed his concerns about pt's symptom presentation prior to admission. He believes pt should remain in pt for a longer period and continue to work on symptoms. Team agrees and welcomes pt to do this however he declines. Father reviewed concerns with pt regarding his not working, not socializing, not moving forward with his life due to illness. Pt disagrees. He focuses on not h aving his glasses so he cannot function as well as he would. He has eye appt to replace glasses 02/16/23. Pt will discharge 02/05. He and father were told he is welcome to return if needed. Medication Compliance: Yes Side effects from medications: No Attending Groups: No Review of Systems Acute medical concerns: No Medical Review of Systems: unchanged Mental Status Exam Mental Status Exam Patient Appearance: Appropriate Patient Orientation: Person, Place and Situation Level of Consciousness: Alert Patient Behavior: Appropriate, Talkative and Good Eye Contact Mood Description: Suspicious and Withdrawn Affect Description: Withdrawn and Flat Ability to Follow Directions: Good Speech Pattern: Spontaneous Speech and Soft-Spoken Memory Description: Episodic Impaired Hallucinations: Auditory Delusions: Present Perceptual Disturbances: Derealization Thought Process: Distracted Thought Content: positive for [place], positive for Circumstantial, positive for Preoccupation and positive for Tangential Judgement: Fair Diagnostics Vital Signs (24Hr): Vital Signs - 24 hr 02/03/23 18:40 02/04/23 06:00 Temperature 98 F 97.9 F Pulse Rate 110 H 87 Respiratory Rate 14 Blood Pressure 155/83 H 112/76 Pulse Oximetry 94 Oxygen Delivery Method Room Air BMI result Body Mass Index 42.1 Labs 01/27/23 18:14 01/27/23 18:14 Medications Medications Current Medications Acetaminophen (Acetaminophen 325 Mg Tablet) 650 mg PO Q6H PRN PRN Reason: Headache/Pain Mild Scale (1-3) Last Admin: 02/03/23 13:04 Dose: 650 mg Al Hydroxide/Mg Hydroxide (Magnesium Hydrox/Alum Hydrox 30 Ml Oral.Susp) 30 ml PO Q6H PRN PRN Reason: Heartburn/Nausea Hydroxyzine HCl (Hydroxyzine Hcl 25 Mg Tablet) 25 mg PO Q6H PRN PRN Reason: Anxiety Last Admin: 02/04/23 17:54 Dose: 25 mg Lorazepam (Lorazepam 1 Mg Tablet) 1 mg PO Q4H PRN PRN Reason: anxiety, agitation Magnesium Hydroxide (Milk Of Magnesia 30 Ml Oral.Susp) 30 ml PO DAILY PRN PRN Reason: Constipation Olanzapine (Olanzapine 5 Mg Tablet) 5 mg PO BID [facility] Last Admin: 02/04/23 08:28 Dose: 5 mg Trazodone HCl (Trazodone Hcl 50 Mg Tablet) 50 mg PO BEDTIME MRX1 PRN PRN Reason: Insomnia Allergies Allergies Allergy/AdvReac Type Severity Reaction Status Date / Time No Known Allergies Allergy Verified 01/27/23 17:17 Assessment & Plan Assessment & Plan (1) Chronic schizophrenia: Status: Acute Code(s): F20.9 - Schizophrenia, unspecified Plan 22 yo male, hx of schizophrenia, current decompensation per parents report due to being off meds (Olanzapine), very poor historian today. Plan: Increase Olanzapine to 5 mg bid Collateral contact Observe in milieu 01/30: Continue current regimen and plans 01/31: Continue current plans and regimen 02/01: no change in mgmt. 02/03/23- Continue current regime Family meeting 02/04. 02/04/23- Increase Olanzapine to 15 mg HS. Pt agrees. Discharge on a three day notice 02/05. Declines [facility] referral, declines further care. Patient educated on: diagnosis and medication risk/benefits Informed Consent: further education needed Reason for continued inpatient stay Substantial Risk for: rapid decompensation Time Spent With Patient Time: Total time managing care of this patient today ____ minutes.
[2023-02-04] MEDS: Acetaminophen 325 MG TABLET 650 MG PO (19:02)
[2023-02-04] MEDS: OLANZapine 7.5 MG TABLET 15 MG PO (19:02)
[2023-02-05 08:16] VITALS: BP 129/88; PULSE 101; RESP 18; TEMP 36.5; O2SAT 98
[2023-02-05] MEDS: hydrOXYzine HCL 25 MG TABLET PO (10:10)
--- NOTE | 2023-02-13 15:54 | P.DS_ITS ---
DS: Providers Provider Date of Service: 02/05/23 Date of admission: 01/28/23 16:13 Date of discharge: 02/05/23 Primary care physician: [facility] Admitting clinician: Natasha Ramachandran Attending physician on admission: Librado Sorto Attending physician on discharge: Librado Sorto Discharging clinician: Natasha Ramachandran DS: Diagnosis Discharge Diagnosis (1) Chronic schizophrenia: Status: Acute DS: Medications Discharge Medications Home Medications: Previous Rx's Medication Instructions Recorded atorvastatin 20 mg tablet 20 mg PO BEDTIME #30 tabs 02/04/23 olanzapine 15 mg disintegrating 15 mg PO BEDTIME #30 tabs 02/04/23 tablet (Zyprexa Zydis) Mental Status Exam Mental Status Exam Patient Appearance: Appropriate Patient Orientation: Person, Place and Situation Level of Consciousness: Alert Patient Behavior: Appropriate, Talkative and Good Eye Contact Mood Description: Suspicious and Withdrawn Affect Description: Withdrawn and Flat Ability to Follow Directions: Good Speech Pattern: Spontaneous Speech and Soft-Spoken Memory Description: Episodic Impaired Hallucinations: Auditory Delusions: Present Perceptual Disturbances: Derealization Thought Process: Distracted Thought Content: positive for [place], positive for Circumstantial, positive for Preoccupation and positive for Tangential Judgement: Fair DS: Summary Hospital Course Hospital Course: Admission to adult psychiatry for exacerbation of symptoms of schizophrenia. Olanzapine was increased and tolerated during admission. Family meeting with Willy and his father was completed, team and father asking Willy to remain in patient for further treatment and work on symptoms, which he refused. Reviewed diagnostics with Willy. He agreed to begin atorvastatin to address elevated levels of cholesterol and triglycerides. Pt left on a three day notice of intent. He and father were told he is welcome to call and or return if needed. Time spent discussing smoking cessation with patient: 3 to 10 minutes Status at Discharge Functional status at discharge: independent ambulation Overall status at discharge: patient is progressing back to baseline Time Spent with Patient Time attestation: Total time managing care of this patient today ____ minutes. Time spent: Greater than 30 minutes Discharge Plan Discharge Anticipated Discharge Date/Time: 02/05/23 12:00 Patient Disposition: Home, Self-Care Discharge Diagnosis: Schizophrenia Referrals: [facility]: Willy Arciniega [Other] - 02/10/23 1:00 pm (Initial Diagnostic Evaluation for therapy Appointment is in person at [facility] in [place], [place]. You must attend this appointment to receive psychiatric medication management services) [facility]: Zaira Ochoa [Other] - 03/03/23 3:30 pm (Initial Psychiatric Evaluation for Medication Management Appointment is by by tele-health (phone call). Psychiatric provider will call on day of scheduled appointment.) [facility]: Zaira Ochoa [Other] - 04/02/23 2:00 pm (Medication management appointment with psychiatric medication provider. Appointment is by tele-health. Provider will call you by phone on day of scheduled appointment.) Shweta Shaffer NP [Nurse Practitioner] - 02/23/23 10:30 am (in office) Discharge Medications: New olanzapine [Zyprexa Zydis] 15 mg tablet,disintegrating 15 mg PO BEDTIME Qty: 30 0RF atorvastatin 20 mg tablet 20 mg PO BEDTIME Qty: 30 0RF Discontinued olanzapine 5 mg tablet 5 mg PO DAILY Discharge Orders: Discharge Order (Routine); Ordered 02/05/23 Ordered By: Natasha Ramachandran Diet: Advance to usual diet Activity on Discharge: As tolerated Stand Alone Forms: Patient Portal Discharge page, Community Support Care Plan Goals: Mood and Behavioral Stabilization Health Concerns: Mood and Behavioral Stabilization Plan of Treatment: Follow up with scheduled appointments Take medications as directed Assessment: Three day notice given Non suicidal, non homicidal non psychotic non manic Pt's father has asked him to remain in hospital for further treatment, however, pt refuses. Discharge Date/Time: 02/05/23 11:55
== END 2023-02-05 11:55 | disposition home or self-care (01) | DRG 750 ==
LOC: HO.ED 01-28 00:30 → HO.PM5 01-28 16:19
PROVIDERS: Nurse Practitioner Family; Admitting Provider Psychiatry & Neurology Psychiatry; Emergency Provider Internal Medicine; Visit Provider Clinical Nurse Specialist Psychiatric/Mental Health, Adult
DX: F20.9 Schizophrenia, unspecified (principal); F17.210 Nicotine dependence, cigarettes, uncomplicated; Z20.822 Contact with and (suspected) exposure to COVID-19; Z71.6 Tobacco abuse counseling; Z79.899 Other long term (current) drug therapy
CPT/HCPCS: 36415; 80048; 80061; 80076; 80307; 82077; 82607; 82746; 83036; 83735; 84439; 84443; 85025; 87635; 90686; 93005; 99285; S9485

== ENCOUNTER 2024-02-01 11:06 | Inpatient (IN) | payer OTHER, SELFPAY ==
[2024-02-01 11:13] VITALS: BP 160/90; PULSE 130; O2SAT 97
[2024-02-01] MEDS: OLANZapine ODT 10 MG TAB.RAPDIS TRANSLINGU (11:27)
[2024-02-01] MEDS: LORazepam 1 MG TABLET 2 MG PO (11:27)
[2024-02-01] MEDS: diphenhydrAMINE HCL 25 MG CAPSULE 50 MG PO (11:27)
[2024-02-01 11:41] VITALS: BP 114/101; PULSE 116; RESP 18; TEMP 36.1; O2SAT 97; BMI 31.2
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
[2024-02-01 12:03] VITALS: BP 114/101; PULSE 116; RESP 18; TEMP 36.1; O2SAT 97
[2024-02-01 12:34] LABS: Appearance Urine Clear; Color Urine Yellow; Glucose Urine UA Negative (Negative); Leukocyte Esterase Urine Negative (Negative); Nitrite Urine Negative (Negative); Urine Blood Negative (Negative); Urine Ketones Negative (Negative); Urine Protein Negative (Neg-Trace)
[2024-02-01 12:44] LABS: Amphetamine Screen Urine Not Detected (Not Detect); Barbiturates, Urine Not Detected (Not Detect); Benzodiazepines Screen Urine Not Detected (Not Detect); Buprenorphine Scr Not Detected (Not Detect); Cannabinoid Screen Urine POSITIVE (Not Detect); Cocaine Screen Urine Not Detected (Not Detect); Fentanyl, urine Not Detected (Not Detect); Methadone Screen, Urine Not Detected (Not Detect); Opiate Screen Urine Not Detected (Not Detect); Oxycodone Screen Urine Not Detected (Not Detect); Phencyclidine Screen Urine Not Detected (Not Detect)
[2024-02-01 13:10] LABS: MANUAL DIFF FLAG NO
[2024-02-01 13:22] LABS: Basophils Absolute Auto 0.1 X10*3/uL (0.0-0.2); Basophils Percent Auto 0.4 % (0-2); Eosinophils Absolute Auto 0.1 X10*3/uL (0.0-0.4); Eosinophils Percent Auto 0.5 % (0-4); Hematocrit 41.6 % (42.0-52.0); Hemoglobin 14.2 g/dl (14.0-18.0); Imm Gran Abs Auto 0.05 X10*3/uL (0.00-0.03); Imm Gran Pct Auto 0.4 % (0.0-0.4); Lymphocytes Absolute Auto 1.7 X10*3/uL (1.2-4.9); Lymphocytes Percent Auto 12.8 % (20-40); Mean Corpuscular HGB Conc 34.1 g/dl (31.0-36.0); Mean Corpuscular Hemoglobin 29.6 pg (27.0-33.0); Mean Corpuscular Volume 86.7 fL (80.0-98.0); Mean Platelet Volume 9.5 fL (9.4-12.4); Monocytes Absolute Auto 0.8 X10*3/uL (0.1-1.2); Monocytes Percent Auto 6.5 % (2-11); Neutrophils Absolute Auto 10.3 x10*3/uL (2.0-8.3); Neutrophils Percent Auto 79.4 % (45-73); Platelet Count 314 X10*3/uL (160-400); Red Cell Distribution Width 13.3 % (11.0-16.0); White Blood Count 12.9 X10*3/uL (4.8-10.8)
[2024-02-01 13:37] LABS: Alanine Aminotransferase 32 U/L (0-40); Albumin Level 4.2 g/dL (3.5-5.0); Alkaline Phosphatase 71 U/L (39-117); Anion Gap 9 (12-20); Aspartate Amino Transferase 22 U/L (5-37); Bilirubin Direct 0.1 mg/dL (0.0-0.5); Bilirubin Total 0.4 mg/dL (0.0-1.0); Blood Urea Nitrogen 12 mg/dL (9-16); Calcium 9.6 mg/dL (8.4-10.2); Carbon Dioxide 28 mmol/L (22-29); Chloride 107 mmol/L (96-108); Creatinine Clr Calc Pharmacy 163.9; Estimated Glomerular Filt Rate > 60; Glucose Random 107 mg/dL (60-115); Magnesium 2.3 mg/dL (1.6-2.6); Potassium 3.5 mmol/L (3.3-5.1); Sodium 140 mmol/L (135-145); Total Protein 7.2 g/dL (6.5-8.0)
[2024-02-01 13:40] LABS: Ethanol < 10 mg/dL
[2024-02-01 13:51] LABS: Influenza A PCR NEGATIVE (Negative); Influenza B PCR NEGATIVE (Negative); Resp Syncy Virus RNA Qual PCR NEGATIVE (Negative); SARS COV2 PCR INHOUSE NEGATIVE (Negative)
[2024-02-01 17:35] VITALS: BP 142/91; PULSE 95; RESP 16; TEMP 36.9; O2SAT 95
[2024-02-01 17:40] VITALS: BMI 43.5
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
[2024-02-01] MEDS: OLANZapine 7.5 MG TABLET 15 MG PO (20:27)
[2024-02-01] MEDS: hydrOXYzine HCL 25 MG TABLET PO (20:28)
[2024-02-01] MEDS: traZODone HCL 50 MG TABLET PO (20:28)
[2024-02-01 21:00] VITALS: BP 142/89; PULSE 97; RESP 16; TEMP 36.9; O2SAT 97
[2024-02-02 07:43] VITALS: BP 128/91; PULSE 116; RESP 16; TEMP 36.9; O2SAT 97
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
[2024-02-02 20:00] VITALS: BP 133/79; PULSE 96; RESP 18; TEMP 36.4; O2SAT 99
[2024-02-02] MEDS: traZODone HCL 50 MG TABLET PO (20:46)
[2024-02-02] MEDS: OLANZapine 7.5 MG TABLET 15 MG PO (20:46)
[2024-02-02] MEDS: hydrOXYzine HCL 25 MG TABLET PO (20:47)
--- NOTE | 2024-02-03 13:27 | HO.PSYCHPN ---
Subjective Subjective Date of Service: 02/03/24 Reason For Visit: SEC 12,AUD HALLUC,AGGRESIVE,HPD ON BOARD PER EMS Interim History: pt seen with his father, then MD met with father separately. aden warning provided. in blunt attempted discussion of pt's mental illness, pt became increasingly escalated and pressured, not allowing father or MD to speak. MD finally ended interview as no fruitful interaction appeared possible at that time. pt was offered 3-day notice by nursing staff, which he declined to complete. per staff, anxious and guarded. slept about 8 hours. took medications. Mental Status Exam Mental Status Exam Narrative: initially superficially cooperative, later agitated. irritable, not engaged. dyed hair, large build. no PMA/PMR. speech variable, sometimes terse, sometimes fluid but without meaning, incr loudness, decr latency, incr amount. thoughts generally disorganized. affect constricted, hyper-intense, labile. mood not assessed. no SI/SIBI/HI/AVH expressed. Diagnostics Vital Signs (24Hr): Vital Signs - 24 hr 02/02/24 20:00 Temperature 97.6 F Pulse Rate 96 Respiratory Rate 18 Blood Pressure 133/79 Pulse Oximetry 99 Oxygen Delivery Method Room Air BMI result Body Mass Index 43.5 Labs 02/01/24 13:05 02/01/24 13:05 Labs: Laboratory Results - last 48 hr 02/01/24 13:05 Sodium 140 Potassium 3.5 Chloride 107 Carbon Dioxide 28 Anion Gap 9 L BUN 12 Creatinine 0.86 Estim Creat Clear Calc 163.9 Estimated GFR > 60 Random Glucose 107 Calcium 9.6 Magnesium 2.3 Total Bilirubin 0.4 Direct Bilirubin 0.1 AST 22 ALT 32 Alkaline Phosphatase 71 Total Protein 7.2 Albumin 4.2 Ethyl Alcohol < 10 Influenza Type A (PCR) NEGATIVE Influenza Type B (PCR) NEGATIVE RSV RNA Qual (PCR) NEGATIVE SARS-CoV-2 RNA (RT-PCR) NEGATIVE Medications Medications Current Medications Acetaminophen (Acetaminophen 325 Mg Tablet) 650 mg PO Q6H PRN PRN Reason: Headache/Pain Mild Scale (1-3) Al Hydroxide/Mg Hydroxide (Magnesium Hydrox/Alum Hydrox 30 Ml Oral.Susp) 30 ml PO Q6H PRN PRN Reason: Heartburn/Nausea Hydroxyzine HCl (Hydroxyzine Hcl 25 Mg Tablet) 25 mg PO Q6H PRN PRN Reason: Anxiety Last Admin: 04/24/24 20:47 Dose: 25 mg Magnesium Hydroxide (Milk Of Magnesia 30 Ml Oral.Susp) 30 ml PO DAILY PRN PRN Reason: Constipation Nicotine Polacrilex (Nicotine Polacrilex 2 Mg Gum) 4 mg BUCCAL Q2H PRN PRN Reason: Nicotine Cravings Olanzapine (Olanzapine 7.5 Mg Tablet) 15 mg PO BEDTIME MIRELLA Last Admin: 02/02/24 20:46 Dose: 15 mg Trazodone HCl (Trazodone Hcl 50 Mg Tablet) 50 mg PO BEDTIME MRX1 PRN PRN Reason: Insomnia Last Admin: 02/02/24 20:46 Dose: 50 mg Allergies Allergies Allergy/AdvReac Type Severity Reaction Status Date / Time No Known Allergies Allergy Verified 02/01/24 11:44 Assessment & Plan Assessment & Plan (1) Chronic schizophrenia: Status: Acute Code(s): F20.9 - Schizophrenia, unspecified Plan 02/01: continue zyprexa 15 mg QHS for now. collateral from outpt provider rachid; texted 02/01. 02/02: collateral obtained from [facility]; pt is new to [facility] and [facility] believes pt has poor record of compliance. today in mtg with MD and pt's father, pt was labile, disorganized, paranoid. per father, pt sleeps very little, is grandiose and labile, c/w lizette. will add lithium to regimen. Reason for continued inpatient stay Substantial Risk for: harm to self, harm to others and inability to function Time Spent With Patient Time: Total time managing care of this patient today _55___ minutes.
[2024-02-03 13:30] VITALS: BP 155/95; PULSE 108; RESP 20; TEMP 37.1; O2SAT 96
--- NOTE | 2024-02-03 17:05 | PC.NURSE ---
Patient submitted 3 day notice. States he understands it will be up on 02/07.
[2024-02-03 19:45] VITALS: BP 130/82; PULSE 120; RESP 18; TEMP 37.1; O2SAT 95
[2024-02-03] MEDS: Lithium Carbonate ER 300 MG TABLET.ER 600 MG PO (20:51)
[2024-02-03] MEDS: Acetaminophen 325 MG TABLET 650 MG PO (20:51)
[2024-02-03] MEDS: hydrOXYzine HCL 25 MG TABLET PO (20:52)
[2024-02-03] MEDS: traZODone HCL 50 MG TABLET PO (20:52)
[2024-02-03] MEDS: OLANZapine 7.5 MG TABLET 15 MG PO (20:52)
[2024-02-04 07:15] VITALS: BP 127/78; PULSE 81; RESP 16; TEMP 37; O2SAT 97
[2024-02-04] MEDS: Lithium Carbonate ER 300 MG TABLET.ER 600 MG PO ×2 (09:31→20:18)
--- NOTE | 2024-02-04 14:32 | HO.PSYCHPN ---
Subjective Subjective Date of Service: 02/04/24 Reason For Visit: SEC 12,AUD HALLUC,AGGRESIVE,HPD ON BOARD PER EMS Interim History: lying in bed, nonchalant, superficially cooperative, asking when he is to be discharged. MD informs him there is no date at present, pt accepts the news without substantial reaction. per staff, agitated yesterday morning after meeting with his father and MD. isolative, eating. took meds last night. slept 8 hours. Mental Status Exam Mental Status Exam Narrative: superficially cooperative. nonchalant, not engaged. dyed hair, large build. no PMA/PMR. speech fast, nml amount, loudness, latency. thoughts linear in brief and superficial interaction. affect constricted, normo-intense, non-labile. mood not assessed. no SI/SIBI/HI/AVH expressed. Diagnostics Vital Signs (24Hr): Vital Signs - 24 hr 02/03/24 19:45 02/04/24 07:15 Temperature 98.7 F 98.6 F Pulse Rate 120 H 81 Respiratory Rate 18 16 Blood Pressure 130/82 127/78 Pulse Oximetry 95 97 Oxygen Delivery Method Room Air Room Air BMI result Body Mass Index 43.5 Labs 02/01/24 13:05 02/01/24 13:05 Medications Medications Current Medications Acetaminophen (Acetaminophen 325 Mg Tablet) 650 mg PO Q6H PRN PRN Reason: Headache/Pain Mild Scale (1-3) Last Admin: 02/03/24 20:51 Dose: 650 mg Al Hydroxide/Mg Hydroxide (Magnesium Hydrox/Alum Hydrox 30 Ml Oral.Susp) 30 ml PO Q6H PRN PRN Reason: Heartburn/Nausea Hydroxyzine HCl (Hydroxyzine Hcl 25 Mg Tablet) 25 mg PO Q6H PRN PRN Reason: Anxiety Last Admin: 02/03/24 20:52 Dose: 25 mg [place] Carbonate ([place] Carbonate Er 300 Mg Tablet.Er) 600 mg PO BID MIRELLA Last Admin: 02/04/24 09:31 Dose: 600 mg Magnesium Hydroxide (Milk Of Magnesia 30 Ml Oral.Susp) 30 ml PO DAILY PRN PRN Reason: Constipation Nicotine Polacrilex (Nicotine Polacrilex 2 Mg Gum) 4 mg BUCCAL Q2H PRN PRN Reason: Nicotine Cravings Olanzapine (Olanzapine 7.5 Mg Tablet) 15 mg PO BEDTIME MIRELLA Last Admin: 02/03/24 20:52 Dose: 15 mg Trazodone HCl (Trazodone Hcl 50 Mg Tablet) 50 mg PO BEDTIME MRX1 PRN PRN Reason: Insomnia Last Admin: 02/03/24 20:52 Dose: 50 mg Allergies Allergies Allergy/AdvReac Type Severity Reaction Status Date / Time No Known Allergies Allergy Verified 02/01/24 11:44 Assessment & Plan Assessment & Plan (1) Chronic schizophrenia: Status: Acute Code(s): F20.9 - Schizophrenia, unspecified Plan 02/01: continue zyprexa 15 mg QHS for now. collateral from outpt provider rachid; texted 02/01. 02/02: collateral obtained from [facility]; pt is new to [facility] and [facility] believes pt has poor record of compliance. today in mtg with MD and pt's father, pt was labile, disorganized, paranoid. per father, pt sleeps very little, is grandiose and labile, c/w lizette. will add lithium to regimen. 02/03: calm today. continue current mgmt. commitment paperwork completed. Reason for continued inpatient stay Substantial Risk for: harm to self, harm to others, inability to function and rapid decompensation Time Spent With Patient Time: Total time managing care of this patient today __35__ minutes.
[2024-02-04] MEDS: Nicotine Polacrilex 2 MG GUM 4 MG BUCCAL (14:48)
[2024-02-04 19:45] VITALS: BP 140/91; PULSE 98; RESP 18; TEMP 36.9; O2SAT 97
[2024-02-04] MEDS: OLANZapine 7.5 MG TABLET 15 MG PO (20:18)
[2024-02-05 08:10] VITALS: BP 126/74; PULSE 70; RESP 16; TEMP 36.8; O2SAT 96
[2024-02-05] MEDS: Lithium Carbonate ER 300 MG TABLET.ER 600 MG PO ×2 (09:23→20:23)
--- NOTE | 2024-02-05 13:46 | P.PNPSI_ITS ---
Subjective Subjective Date of Service: 02/05/24 Reason For Visit: SEC 12,AUD HALLUC,AGGRESIVE,HPD ON BOARD PER EMS Subjective Notes: Conditional Voluntary Interim History: Pt slept most of the night. Pt reports he feels better with lithium, stating it makes him feel calm. He denies SI/HI. superficially cooperative. He asks about discharge and whether it can happen today or tomorrow, pt informed he has to wait until Wednesday to discuss with team. Review of Systems Review of Systems ROS unable to be obtained due to agitation Mental Status Exam Mental Status Exam Narrative: superficially cooperative. nonchalant, not engaged. dyed hair, large build. no PMA/PMR. speech fast, nml amount, loudness, latency. thoughts linear in brief and superficial interaction. affect constricted, normo-intense, non- labile. mood not assessed. no SI/SIBI/HI/AVH expressed. Diagnostics Vital Signs (24Hr): Vital Signs - 24 hr 02/04/24 19:45 02/05/24 08:10 Temperature 98.4 F 98.2 F Pulse Rate 98 70 Respiratory Rate 18 16 Blood Pressure 140/91 H 126/74 Pulse Oximetry 97 96 Oxygen Delivery Method Room Air Room Air BMI result Body Mass Index 43.5 Labs 02/01/24 13:05 02/01/24 13:05 Medications Medications Current Medications Acetaminophen (Acetaminophen 325 Mg Tablet) 650 mg PO Q6H PRN PRN Reason: Headache/Pain Mild Scale (1-3) Last Admin: 02/03/24 20:51 Dose: 650 mg Al Hydroxide/Mg Hydroxide (Magnesium Hydrox/Alum Hydrox 30 Ml Oral.Susp) 30 ml PO Q6H PRN PRN Reason: Heartburn/Nausea Hydroxyzine HCl (Hydroxyzine Hcl 25 Mg Tablet) 25 mg PO Q6H PRN PRN Reason: Anxiety Last Admin: 02/03/24 20:52 Dose: 25 mg [place] Carbonate ([place] Carbonate Er 300 Mg Tablet.Er) 600 mg PO BID MIRELLA Last Admin: 02/05/24 09:23 Dose: 600 mg Magnesium Hydroxide (Milk Of Magnesia 30 Ml Oral.Susp) 30 ml PO DAILY PRN PRN Reason: Constipation Nicotine Polacrilex (Nicotine Polacrilex 2 Mg Gum) 4 mg BUCCAL Q2H PRN PRN Reason: Nicotine Cravings Last Admin: 02/04/24 14:48 Dose: 4 mg Olanzapine (Olanzapine 7.5 Mg Tablet) 15 mg PO BEDTIME MIRELLA Last Admin: 02/04/24 20:18 Dose: 15 mg Trazodone HCl (Trazodone Hcl 50 Mg Tablet) 50 mg PO BEDTIME MRX1 PRN PRN Reason: Insomnia Last Admin: 02/03/24 20:52 Dose: 50 mg Allergies Allergies Allergy/AdvReac Type Severity Reaction Status Date / Time No Known Allergies Allergy Verified 02/01/24 11:44 Assessment & Plan Assessment & Plan (1) Chronic schizophrenia: Status: Acute Code(s): F20.9 - Schizophrenia, unspecified Plan 02/01: continue zyprexa 15 mg QHS for now. collateral from outpt provider rachid; texted 02/01. 02/02: collateral obtained from [facility]; pt is new to [facility] and rachid believes pt has poor record of compliance. today in mtg with MD and pt's father, pt was labile, disorganized, paranoid. per father, pt sleeps very little, is grandiose and labile, c/w lizette. will add lithium to regimen. 02/03: calm today. continue current mgmt. commitment paperwork completed. 02/04 continue tx 02/05 continue tx. Reason for continued inpatient stay Substantial Risk for: inability to function Time Spent With Patient Time: Total time managing care of this patient today ____ minutes.
[2024-02-05] MEDS: Nicotine Polacrilex 2 MG GUM 4 MG BUCCAL ×2 (15:09→17:10)
[2024-02-05 20:00] VITALS: BP 141/81; PULSE 113; RESP 18; TEMP 37; O2SAT 96
[2024-02-05] MEDS: OLANZapine 7.5 MG TABLET 15 MG PO (20:22)
[2024-02-05] MEDS: Acetaminophen 325 MG TABLET 650 MG PO (20:25)
[2024-02-05 21:27] VITALS: PULSE 80
[2024-02-06 07:45] VITALS: BP 115/58; PULSE 76; RESP 14; TEMP 36.4; O2SAT 97
[2024-02-06] MEDS: Lithium Carbonate ER 300 MG TABLET.ER 600 MG PO ×2 (08:41→20:17)
--- NOTE | 2024-02-06 14:55 | P.PNPSI_ITS ---
Subjective Subjective Date of Service: 02/06/24 Reason For Visit: SEC 12,AUD HALLUC,AGGRESIVE,HPD ON BOARD PER EMS Subjective Notes: Conditional Voluntary Interim History: Not much change today. Pt slept most of the night. Pt reports he feels better with lithium, stating it makes him feel calm. He denies SI/HI. superficially cooperative. He asks about discharge and whether it can happen today or tomorrow, pt informed he has to wait until Wednesday to discuss with team. Review of Systems Review of Systems ROS unable to be obtained due to agitation Mental Status Exam Mental Status Exam Narrative: superficially cooperative. nonchalant, not engaged. dyed hair, large build. no PMA/PMR. speech fast, nml amount, loudness, latency. thoughts linear in brief and superficial interaction. affect constricted, normo-intense, non- labile. mood not assessed. no SI/SIBI/HI/AVH expressed. Diagnostics Vital Signs (24Hr): Vital Signs - 24 hr 02/05/24 20:00 02/05/24 21:27 02/06/24 07:45 Temperature 98.6 F 97.6 F Pulse Rate 113 H 80 76 Respiratory Rate 18 14 Blood Pressure 141/81 H 115/58 L Pulse Oximetry 96 97 Oxygen Delivery Method Room Air Room Air BMI result Body Mass Index 43.5 Labs 02/01/24 13:05 02/01/24 13:05 Medications Medications Current Medications Acetaminophen (Acetaminophen 325 Mg Tablet) 650 mg PO Q6H PRN PRN Reason: Headache/Pain Mild Scale (1-3) Last Admin: 02/05/24 20:25 Dose: 650 mg Al Hydroxide/Mg Hydroxide (Magnesium Hydrox/Alum Hydrox 30 Ml Oral.Susp) 30 ml PO Q6H PRN PRN Reason: Heartburn/Nausea Hydroxyzine HCl (Hydroxyzine Hcl 25 Mg Tablet) 25 mg PO Q6H PRN PRN Reason: Anxiety Last Admin: 02/03/24 20:52 Dose: 25 mg [place] Carbonate ([place] Carbonate Er 300 Mg Tablet.Er) 600 mg PO BID MIRELLA Last Admin: 02/06/24 08:41 Dose: 600 mg Magnesium Hydroxide (Milk Of Magnesia 30 Ml Oral.Susp) 30 ml PO DAILY PRN PRN Reason: Constipation Nicotine Polacrilex (Nicotine Polacrilex 2 Mg Gum) 4 mg BUCCAL Q2H PRN PRN Reason: Nicotine Cravings Last Admin: 02/05/24 17:10 Dose: 4 mg Olanzapine (Olanzapine 7.5 Mg Tablet) 15 mg PO BEDTIME MIRELLA Last Admin: 02/05/24 20:22 Dose: 15 mg Trazodone HCl (Trazodone Hcl 50 Mg Tablet) 50 mg PO BEDTIME MRX1 PRN PRN Reason: Insomnia Last Admin: 02/03/24 20:52 Dose: 50 mg Allergies Allergies Allergy/AdvReac Type Severity Reaction Status Date / Time No Known Allergies Allergy Verified 02/01/24 11:44 Assessment & Plan Assessment & Plan (1) Chronic schizophrenia: Status: Acute Code(s): F20.9 - Schizophrenia, unspecified Plan 02/01: continue zyprexa 15 mg QHS for now. collateral from outpt provider rachid; texted 02/01. 02/02: collateral obtained from [facility]; pt is new to [facility] and [facility] believes pt has poor record of compliance. today in mtg with MD and pt's father, pt was labile, disorganized, paranoid. per father, pt sleeps very little, is grandiose and labile, c/w lizette. will add lithium to regimen. 02/03: calm today. continue current mgmt. commitment paperwork completed. 02/04 continue tx 02/05 continue tx. Reason for continued inpatient stay Substantial Risk for: inability to function Time Spent With Patient Time: Total time managing care of this patient today ____ minutes.
[2024-02-06] MEDS: Nicotine Polacrilex 2 MG GUM 4 MG BUCCAL (16:52)
[2024-02-06] MEDS: Acetaminophen 325 MG TABLET 650 MG PO (17:34)
[2024-02-06 20:00] VITALS: BP 130/84; PULSE 112; RESP 18; TEMP 36.9; O2SAT 95
[2024-02-06] MEDS: Gabapentin 100 MG CAPSULE PO (20:17)
[2024-02-06] MEDS: OLANZapine 7.5 MG TABLET 15 MG PO (20:17)
[2024-02-07 07:42] VITALS: BP 138/81; PULSE 65; RESP 14; TEMP 36.4; O2SAT 98
[2024-02-07] MEDS: Lithium Carbonate ER 300 MG TABLET.ER 600 MG PO ×2 (10:04→20:48)
--- NOTE | 2024-02-07 14:44 | P.PNPSI_ITS ---
Subjective Subjective Date of Service: 02/07/24 Reason For Visit: SEC 12,AUD HALLUC,AGGRESIVE,HPD ON BOARD PER EMS Subjective Notes: Adams Warning Interim History: disorganized, delusional. discoursing on some link between his having noticed a freckle on his wrist and his having started taking medication. denies any side effects. adams warning provided. per staff, 3-day notice up 02/07. isolative. new gabapentin order as of yesterday. Mental Status Exam Mental Status Exam Narrative: superficially cooperative. nonchalant. dyed hair, large build. no PMA/PMR. speech fast, nml amount, loudness, latency. thoughts disorganized, delusional. affect constricted, normo-intense, non-labile. mood not assessed. no SI/SIBI/HI/AVH expressed. Diagnostics Vital Signs (24Hr): Vital Signs - 24 hr 02/06/24 20:00 02/07/24 07:42 Temperature 98.5 F 97.6 F Pulse Rate 112 H 65 Respiratory Rate 18 14 Blood Pressure 130/84 138/81 Pulse Oximetry 95 98 Oxygen Delivery Method Room Air Room Air BMI result Body Mass Index 43.5 Labs 02/01/24 13:05 02/01/24 13:05 Medications Medications Current Medications Acetaminophen (Acetaminophen 325 Mg Tablet) 650 mg PO Q6H PRN PRN Reason: Headache/Pain Mild Scale (1-3) Last Admin: 02/06/24 17:34 Dose: 650 mg Al Hydroxide/Mg Hydroxide (Magnesium Hydrox/Alum Hydrox 30 Ml Oral.Susp) 30 ml PO Q6H PRN PRN Reason: Heartburn/Nausea Gabapentin (Gabapentin 100 Mg Capsule) 100 mg PO BEDTIME [facility] Last Admin: 02/06/24 20:17 Dose: 100 mg Hydroxyzine HCl (Hydroxyzine Hcl 25 Mg Tablet) 25 mg PO Q6H PRN PRN Reason: Anxiety Last Admin: 02/03/24 20:52 Dose: 25 mg [place] Carbonate ([place] Carbonate Er 300 Mg Tablet.Er) 600 mg PO BID [facility] Last Admin: 02/07/24 10:04 Dose: 600 mg Magnesium Hydroxide (Milk Of Magnesia 30 Ml Oral.Susp) 30 ml PO DAILY PRN PRN Reason: Constipation Nicotine Polacrilex (Nicotine Polacrilex 2 Mg Gum) 4 mg BUCCAL Q2H PRN PRN Reason: Nicotine Cravings Last Admin: 02/06/24 16:52 Dose: 4 mg Olanzapine (Olanzapine 7.5 Mg Tablet) 15 mg PO BEDTIME MIRELLA Last Admin: 02/06/24 20:17 Dose: 15 mg Trazodone HCl (Trazodone Hcl 50 Mg Tablet) 50 mg PO BEDTIME MRX1 PRN PRN Reason: Insomnia Last Admin: 02/03/24 20:52 Dose: 50 mg Allergies Allergies Allergy/AdvReac Type Severity Reaction Status Date / Time No Known Allergies Allergy Verified 02/01/24 11:44 Assessment & Plan Assessment & Plan (1) Chronic schizophrenia: Status: Acute Code(s): F20.9 - Schizophrenia, unspecified Plan 02/01: continue zyprexa 15 mg QHS for now. collateral from outpt provider rachid; texted 02/01. 02/02: collateral obtained from [facility]; pt is new to [facility] and rachid believes pt has poor record of compliance. today in mtg with MD and pt's father, pt was labile, disorganized, paranoid. per father, pt sleeps very little, is grandiose and labile, c/w lizette. will add lithium to regimen. 02/03: calm today. continue current mgmt. commitment paperwork completed. 02/04 continue tx 02/05 continue tx. 02/06: remains disorganized and delusional. unclear if affective Sx have improved, although pt did receive the news of filing for commitment without reaction. continue current mgmt. Reason for continued inpatient stay Substantial Risk for: harm to self, harm to others, inability to function and rapid decompensation Time Spent With Patient Time: Total time managing care of this patient today __25__ minutes.
[2024-02-07] MEDS: Nicotine Polacrilex 2 MG GUM 4 MG BUCCAL (16:25)
[2024-02-07] MEDS: hydrOXYzine HCL 25 MG TABLET PO (18:23)
[2024-02-07] MEDS: OLANZapine 10 MG TABLET PO (18:37)
[2024-02-07] MEDS: OLANZapine 7.5 MG TABLET 15 MG PO (20:47)
[2024-02-07] MEDS: Gabapentin 100 MG CAPSULE PO (20:49)
[2024-02-07 20:51] VITALS: BP 139/88; PULSE 124; RESP 20; TEMP 36.5; O2SAT 99
[2024-02-08] MEDS: Lithium Carbonate ER 300 MG TABLET.ER 600 MG PO ×2 (10:27→19:55)
--- NOTE | 2024-02-08 13:48 | P.PNPSI_ITS ---
Subjective Subjective Date of Service: 02/08/24 Reason For Visit: SEC 12,AUD HALLUC,AGGRESIVE,HPD ON BOARD PER EMS Interim History: calm, cooperative, illogical, disorganized. per staff, 3-day up today. was filed on yesterday. visible. taking meds. slept well. i found a polka dot on my wrist. i'm a duck person. amenable to have labs checked today. relieved to hear he has not done anything wrong. Mental Status Exam Mental Status Exam Narrative: cooperative. nonchalant. dyed hair, large build. no PMA/PMR. speech fast, nml amount, loudness, latency. thoughts disorganized, delusional. affect flexible, normo-intense, non-labile. mood anxious. no SI/SIBI/HI/AVH expressed. Diagnostics Vital Signs (24Hr): Vital Signs - 24 hr 02/07/24 20:51 Temperature 97.7 F Pulse Rate 124 H Respiratory Rate 20 Blood Pressure 139/88 Pulse Oximetry 99 Oxygen Delivery Method Room Air BMI result Body Mass Index 43.5 Labs 02/01/24 13:05 02/01/24 13:05 Medications Medications Current Medications Acetaminophen (Acetaminophen 325 Mg Tablet) 650 mg PO Q6H PRN PRN Reason: Headache/Pain Mild Scale (1-3) Last Admin: 02/06/24 17:34 Dose: 650 mg Al Hydroxide/Mg Hydroxide (Magnesium Hydrox/Alum Hydrox 30 Ml Oral.Susp) 30 ml PO Q6H PRN PRN Reason: Heartburn/Nausea Gabapentin (Gabapentin 100 Mg Capsule) 100 mg PO BEDTIME MIRELLA Last Admin: 02/07/24 20:49 Dose: 100 mg Hydroxyzine HCl (Hydroxyzine Hcl 25 Mg Tablet) 25 mg PO Q6H PRN PRN Reason: Anxiety Last Admin: 02/07/24 18:23 Dose: 25 mg [place] Carbonate ([place] Carbonate Er 300 Mg Tablet.Er) 600 mg PO BID MIRELLA Last Admin: 02/08/24 10:27 Dose: 600 mg Magnesium Hydroxide (Milk Of Magnesia 30 Ml Oral.Susp) 30 ml PO DAILY PRN PRN Reason: Constipation Nicotine Polacrilex (Nicotine Polacrilex 2 Mg Gum) 4 mg BUCCAL Q2H PRN PRN Reason: Nicotine Cravings Last Admin: 02/07/24 16:25 Dose: 4 mg Olanzapine (Olanzapine 7.5 Mg Tablet) 15 mg PO BEDTIME MIRELLA Last Admin: 02/07/24 20:47 Dose: 15 mg Trazodone HCl (Trazodone Hcl 50 Mg Tablet) 50 mg PO BEDTIME MRX1 PRN PRN Reason: Insomnia Last Admin: 02/03/24 20:52 Dose: 50 mg Allergies Allergies Allergy/AdvReac Type Severity Reaction Status Date / Time No Known Allergies Allergy Verified 02/01/24 11:44 Assessment & Plan Assessment & Plan (1) Chronic schizophrenia: Status: Acute Code(s): F20.9 - Schizophrenia, unspecified Plan 02/01: continue zyprexa 15 mg QHS for now. collateral from outpt provider rachid; texted 02/01. 02/02: collateral obtained from [facility]; pt is new to [facility] and [facility] believes pt has poor record of compliance. today in mtg with MD and pt's father, pt was labile, disorganized, paranoid. per father, pt sleeps very little, is grandiose and labile, c/w lizette. will add lithium to regimen. 02/03: calm today. continue current mgmt. commitment paperwork completed. 02/04 continue tx 02/05 continue tx. 02/06: remains disorganized and delusional. unclear if affective Sx have improved, although pt did receive the news of filing for commitment without reaction. continue current mgmt. 02/07: disorganized but pleasant. amenable to have labs tonight. court set for next tuesday 02/13. Reason for continued inpatient stay Substantial Risk for: inability to function and rapid decompensation Time Spent With Patient Time: Total time managing care of this patient today __25__ minutes.
[2024-02-08] MEDS: Gabapentin 100 MG CAPSULE PO (19:55)
[2024-02-08] MEDS: OLANZapine 7.5 MG TABLET 15 MG PO (19:55)
[2024-02-08] MEDS: Nicotine Polacrilex 2 MG GUM 4 MG BUCCAL (19:58)
[2024-02-08] MEDS: traZODone HCL 50 MG TABLET PO (19:58)
[2024-02-08 20:00] VITALS: BP 138/93; PULSE 104; RESP 18; TEMP 36.9; O2SAT 97
[2024-02-08 20:43] LABS: MANUAL DIFF FLAG NO
[2024-02-08 20:44] LABS: Basophils Absolute Auto 0.1 X10*3/uL (0.0-0.2); Basophils Percent Auto 0.6 % (0-2); Eosinophils Absolute Auto 0.3 X10*3/uL (0.0-0.4); Eosinophils Percent Auto 1.9 % (0-4); Hematocrit 43.5 % (42.0-52.0); Hemoglobin 14.9 g/dl (14.0-18.0); Imm Gran Abs Auto 0.06 X10*3/uL (0.00-0.03); Imm Gran Pct Auto 0.4 % (0.0-0.4); Lymphocytes Absolute Auto 3.1 X10*3/uL (1.2-4.9); Lymphocytes Percent Auto 22.6 % (20-40); Mean Corpuscular HGB Conc 34.3 g/dl (31.0-36.0); Mean Corpuscular Hemoglobin 30.3 pg (27.0-33.0); Mean Corpuscular Volume 88.6 fL (80.0-98.0); Mean Platelet Volume 9.6 fL (9.4-12.4); Monocytes Absolute Auto 0.9 X10*3/uL (0.1-1.2); Monocytes Percent Auto 6.7 % (2-11); Neutrophils Absolute Auto 9.2 x10*3/uL (2.0-8.3); Neutrophils Percent Auto 67.8 % (45-73); Platelet Count 361 X10*3/uL (160-400); Red Blood Count 4.91 X10*6/uL (4.60-5.80); Red Cell Distribution Width 13.2 % (11.0-16.0); White Blood Count 13.5 X10*3/uL (4.8-10.8)
[2024-02-08 21:00] LABS: Anion Gap 19 (12-20); Blood Urea Nitrogen 12 mg/dL (9-16); Calcium 10.3 mg/dL (8.4-10.2); Carbon Dioxide 23 mmol/L (22-29); Chloride 103 mmol/L (96-108); Creatinine Clr Calc Pharmacy 165.6; Estimated Glomerular Filt Rate > 60; Glucose Random 109 mg/dL (60-115); Potassium 3.6 mmol/L (3.3-5.1); Sodium 141 mmol/L (135-145)
[2024-02-08 21:18] LABS: Lithium 0.47 mmol/L (0.60-1.20)
[2024-02-09 07:10] VITALS: BP 131/78; PULSE 84; RESP 16; TEMP 36.3; O2SAT 95
[2024-02-09] MEDS: Lithium Carbonate ER 300 MG TABLET.ER 600 MG PO (08:53)
[2024-02-09] MEDS: Lithium Carbonate ER 300 MG TABLET.ER PO (11:22)
--- NOTE | 2024-02-09 15:50 | HO.PSYCHPN ---
Subjective Subjective Date of Service: 02/09/24 Reason For Visit: SEC 12,AUD HALLUC,AGGRESIVE,HPD ON BOARD PER EMS Interim History: calm, cooperative, nonchalant. agreeable to increase lithium to 1800 mg daily. per staff, lithium 0.47. taking meds. pleasant, calm. cooperative. slept about 8 hours. Mental Status Exam Mental Status Exam Narrative: cooperative. nonchalant. dyed hair, large build. no PMA/PMR. speech fast, nml amount, loudness, latency. thoughts disorganized. affect flexible, normo-intense, non-labile. mood anxious. no SI/SIBI/HI/AVH expressed. Diagnostics Vital Signs (24Hr): Vital Signs - 24 hr 02/08/24 20:00 02/09/24 07:10 Temperature 98.5 F 97.3 F Pulse Rate 104 H 84 Respiratory Rate 18 16 Blood Pressure 138/93 H 131/78 Pulse Oximetry 97 95 Oxygen Delivery Method Room Air Room Air BMI result Body Mass Index 43.5 Labs 02/08/24 20:19 02/08/24 20:19 Labs: Laboratory Results - last 48 hr 02/08/24 20:19 WBC 13.5 H RBC 4.91 Hgb 14.9 Hct 43.5 MCV 88.6 MCH 30.3 MCHC 34.3 RDW 13.2 Plt Count 361 MPV 9.6 Immature Gran % (Auto) 0.4 Neut % (Auto) 67.8 Lymph % (Auto) 22.6 [place] % (Auto) 6.7 Eos % (Auto) 1.9 Baso % (Auto) 0.6 Lymph # (Auto) 3.1 [place] # (Auto) 0.9 Eos # (Auto) 0.3 Baso # (Auto) 0.1 Abs Immat Gran (auto) 0.06 H Absolute Neuts (auto) 9.2 H Absolute Nucleated RBC 0.000 Nucleated RBC % (auto) 0.0 Sodium 141 Potassium 3.6 Chloride 103 Carbon Dioxide 23 Anion Gap 19 BUN 12 Creatinine 1.01 Estim Creat Clear Calc 165.6 Estimated GFR > 60 Random Glucose 109 Calcium 10.3 H D [place] 0.47 L Medications Medications Current Medications Acetaminophen (Acetaminophen 325 Mg Tablet) 650 mg PO Q6H PRN PRN Reason: Headache/Pain Mild Scale (1-3) Last Admin: 02/06/24 17:34 Dose: 650 mg Al Hydroxide/Mg Hydroxide (Magnesium Hydrox/Alum Hydrox 30 Ml Oral.Susp) 30 ml PO Q6H PRN PRN Reason: Heartburn/Nausea Gabapentin (Gabapentin 100 Mg Capsule) 100 mg PO BEDTIME MIRELLA Last Admin: 02/08/24 19:55 Dose: 100 mg Hydroxyzine HCl (Hydroxyzine Hcl 25 Mg Tablet) 25 mg PO Q6H PRN PRN Reason: Anxiety Last Admin: 02/07/24 18:23 Dose: 25 mg [place] Carbonate ([place] Carbonate Er 450 Mg Tablet.Er) 900 mg PO BID MIRELLA Magnesium Hydroxide (Milk Of Magnesia 30 Ml Oral.Susp) 30 ml PO DAILY PRN PRN Reason: Constipation Nicotine Polacrilex (Nicotine Polacrilex 2 Mg Gum) 4 mg BUCCAL Q2H PRN PRN Reason: Nicotine Cravings Last Admin: 02/08/24 19:58 Dose: 4 mg Olanzapine (Olanzapine 7.5 Mg Tablet) 15 mg PO BEDTIME MIRELLA Last Admin: 02/08/24 19:55 Dose: 15 mg Trazodone HCl (Trazodone Hcl 50 Mg Tablet) 50 mg PO BEDTIME MRX1 PRN PRN Reason: Insomnia Last Admin: 02/08/24 19:58 Dose: 50 mg Allergies Allergies Allergy/AdvReac Type Severity Reaction Status Date / Time No Known Allergies Allergy Verified 02/01/24 11:44 Assessment & Plan Assessment & Plan (1) Chronic schizophrenia: Status: Acute Code(s): F20.9 - Schizophrenia, unspecified Plan 02/01: continue zyprexa 15 mg QHS for now. collateral from outpt provider rachid; texted 02/01. 02/02: collateral obtained from [facility]; pt is new to [facility] and [facility] believes pt has poor record of compliance. today in mtg with MD and pt's father, pt was labile, disorganized, paranoid. per father, pt sleeps very little, is grandiose and labile, c/w lizette. will add lithium to regimen. 02/03: calm today. continue current mgmt. commitment paperwork completed. 02/04 continue tx 02/05 continue tx. 02/06: remains disorganized and delusional. unclear if affective Sx have improved, although pt did receive the news of filing for commitment without reaction. continue current mgmt. 02/07: disorganized but pleasant. amenable to have labs tonight. court set for next tuesday 02/13. 02/08: stable. lithium 0.47, other labs reassuring. increase lithium to 900 BID. check labs wednesday[address] court wednesday. Reason for continued inpatient stay Substantial Risk for: harm to self, harm to others, inability to function and rapid decompensation Time Spent With Patient Time: Total time managing care of this patient today __35__ minutes.
[2024-02-09 19:56] VITALS: BP 131/81; PULSE 105; TEMP 36.5; O2SAT 97
[2024-02-09] MEDS: traZODone HCL 50 MG TABLET PO (20:41)
[2024-02-09] MEDS: Gabapentin 100 MG CAPSULE PO (20:41)
[2024-02-09] MEDS: Lithium Carbonate ER 450 MG TABLET.ER 900 MG PO (20:41)
[2024-02-09] MEDS: OLANZapine 7.5 MG TABLET 15 MG PO (20:41)
[2024-02-10 07:15] VITALS: BP 109/67; PULSE 68; RESP 16; TEMP 36.5; O2SAT 96
[2024-02-10] MEDS: Lithium Carbonate ER 450 MG TABLET.ER 900 MG PO ×3 (09:33→20:20)
--- NOTE | 2024-02-10 14:16 | HO.PSYCHPN ---
Subjective Subjective Date of Service: 02/10/24 Reason For Visit: SEC 12,AUD HALLUC,AGGRESIVE,HPD ON BOARD PER EMS Interim History: calm, cooperative. again in darkened room late morning. continues to feel sedated, agreeable to decrease HS zyprexa by 5 mg. no complaints or requests otherwise. per staff, blunted. not attending groups. isolative. taking meds. slept 8 hours. denies psych Sx. Mental Status Exam Mental Status Exam Narrative: cooperative. nonchalant. dyed hair, large build. no PMA/PMR. speech fast, nml amount, loudness, latency. thoughts organized in brief interaction. affect constricted, normo-intense, non-labile. mood not assessed. no SI/SIBI/HI/AVH expressed. Diagnostics Vital Signs (24Hr): Vital Signs - 24 hr 02/09/24 19:56 02/10/24 07:15 Temperature 97.7 F 97.7 F Pulse Rate 105 H 68 Respiratory Rate 16 Blood Pressure 131/81 109/67 Pulse Oximetry 97 96 Oxygen Delivery Method Room Air Room Air BMI result Body Mass Index 43.5 Labs 02/08/24 20:19 02/08/24 20:19 Labs: Laboratory Results - last 48 hr 02/08/24 20:19 WBC 13.5 H RBC 4.91 Hgb 14.9 Hct 43.5 MCV 88.6 MCH 30.3 MCHC 34.3 RDW 13.2 Plt Count 361 MPV 9.6 Immature Gran % (Auto) 0.4 Neut % (Auto) 67.8 Lymph % (Auto) 22.6 [place] % (Auto) 6.7 Eos % (Auto) 1.9 Baso % (Auto) 0.6 Lymph # (Auto) 3.1 [place] # (Auto) 0.9 Eos # (Auto) 0.3 Baso # (Auto) 0.1 Abs Immat Gran (auto) 0.06 H Absolute Neuts (auto) 9.2 H Absolute Nucleated RBC 0.000 Nucleated RBC % (auto) 0.0 Sodium 141 Potassium 3.6 Chloride 103 Carbon Dioxide 23 Anion Gap 19 BUN 12 Creatinine 1.01 Estim Creat Clear Calc 165.6 Estimated GFR > 60 Random Glucose 109 Calcium 10.3 H D [place] 0.47 L Medications Medications Current Medications Acetaminophen (Acetaminophen 325 Mg Tablet) 650 mg PO Q6H PRN PRN Reason: Headache/Pain Mild Scale (1-3) Last Admin: 02/06/24 17:34 Dose: 650 mg Al Hydroxide/Mg Hydroxide (Magnesium Hydrox/Alum Hydrox 30 Ml Oral.Susp) 30 ml PO Q6H PRN PRN Reason: Heartburn/Nausea Gabapentin (Gabapentin 100 Mg Capsule) 100 mg PO BEDTIME MIRELLA Last Admin: 02/09/24 20:41 Dose: 100 mg Hydroxyzine HCl (Hydroxyzine Hcl 25 Mg Tablet) 25 mg PO Q6H PRN PRN Reason: Anxiety Last Admin: 02/07/24 18:23 Dose: 25 mg [place] Carbonate ([place] Carbonate Er 450 Mg Tablet.Er) 900 mg PO BID [facility] Last Admin: 02/10/24 09:33 Dose: 900 mg Magnesium Hydroxide (Milk Of Magnesia 30 Ml Oral.Susp) 30 ml PO DAILY PRN PRN Reason: Constipation Nicotine Polacrilex (Nicotine Polacrilex 2 Mg Gum) 4 mg BUCCAL Q2H PRN PRN Reason: Nicotine Cravings Last Admin: 02/08/24 19:58 Dose: 4 mg Olanzapine (Olanzapine 7.5 Mg Tablet) 15 mg PO BEDTIME [facility] Last Admin: 02/09/24 20:41 Dose: 15 mg Trazodone HCl (Trazodone Hcl 50 Mg Tablet) 50 mg PO BEDTIME MRX1 PRN PRN Reason: Insomnia Last Admin: 02/09/24 20:41 Dose: 50 mg Allergies Allergies Allergy/AdvReac Type Severity Reaction Status Date / Time No Known Allergies Allergy Verified 02/01/24 11:44 Assessment & Plan Assessment & Plan (1) Chronic schizophrenia: Status: Acute Code(s): F20.9 - Schizophrenia, unspecified Plan 02/01: continue zyprexa 15 mg QHS for now. collateral from outpt provider rachid; texted 02/01. 02/02: collateral obtained from [facility]; pt is new to [facility] and rachid believes pt has poor record of compliance. today in mtg with MD and pt's father, pt was labile, disorganized, paranoid. per father, pt sleeps very little, is grandiose and labile, c/w lizette. will add lithium to regimen. 02/03: calm today. continue current mgmt. commitment paperwork completed. 02/04 continue tx 02/05 continue tx. 02/06: remains disorganized and delusional. unclear if affective Sx have improved, although pt did receive the news of filing for commitment without reaction. continue current mgmt. 02/07: disorganized but pleasant. amenable to have labs tonight. court set for next tuesday 02/13. 02/08: stable. lithium 0.47, other labs reassuring. increase lithium to 900 [address]ID. check labs [address] court wednesday. 02/09: sedated this morning again, decrease HS zyprexa from 15 mg to 10 mg. otherwise continue current mgmt. Reason for continued inpatient stay Substantial Risk for: harm to others, inability to function and rapid decompensation Time Spent With Patient Time: Total time managing care of this patient today __25__ minutes.
--- NOTE | 2024-02-10 17:11 | PC.NURSE ---
Room search completed as ordered by MD. Patient cooperative with staff requests. Patient reported missing piece to mirror ball was in trash. Piece retrieved and given to security. No further pieces found. Skin check completed as ordered, unremarkable. Patient reports mirror ball moved last night, he touched it and shook back . Reports piece broke because of the pressure. States he did not know what to do and did not want to get in trouble or have to pay for it. Encouraged patient in the future he can always approach staff.
[2024-02-10 20:00] VITALS: BP 135/87; PULSE 111; RESP 16; TEMP 37.2; O2SAT 95
[2024-02-10] MEDS: Gabapentin 100 MG CAPSULE PO (20:18)
[2024-02-10] MEDS: OLANZapine 10 MG TABLET PO (20:18)
[2024-02-10] MEDS: traZODone HCL 50 MG TABLET PO (20:18)
[2024-02-11 07:35] VITALS: BP 107/56; PULSE 74; RESP 14; TEMP 37; O2SAT 96
[2024-02-11] MEDS: Lithium Carbonate ER 450 MG TABLET.ER 900 MG PO ×2 (09:17→20:45)
--- NOTE | 2024-02-11 11:51 | P.PNPSI_ITS ---
Subjective Subjective Date of Service: 02/11/24 Reason For Visit: SEC 12,AUD HALLUC,AGGRESIVE,HPD ON BOARD PER EMS Interim History: calm, cooperative. paucity of meaning in speech, but fluent. aware of hearing on wednesday. taking meds, no c/o side effects. per staff, withdrawn, guarded. denies depression. anx 2. slept about 9 hours. Mental Status Exam Mental Status Exam Narrative: cooperative. nonchalant. dyed hair, large build. no PMA/PMR. speech fast, nml amount, loudness, latency. thoughts superficially organized in brief interaction, but verbal output lacking in content. affect constricted, normo- intense, non-labile. mood not assessed. no SI/SIBI/HI/AVH expressed. Diagnostics Vital Signs (24Hr): Vital Signs - 24 hr 02/10/24 20:00 02/11/24 07:35 Temperature 99 F 98.6 F Pulse Rate 111 H 74 Respiratory Rate 16 14 Blood Pressure 135/87 107/56 L Pulse Oximetry 95 96 Oxygen Delivery Method Room Air Room Air BMI result Body Mass Index 43.5 Labs 02/08/24 20:19 02/08/24 20:19 Medications Medications Current Medications Acetaminophen (Acetaminophen 325 Mg Tablet) 650 mg PO Q6H PRN PRN Reason: Headache/Pain Mild Scale (1-3) Last Admin: 02/06/24 17:34 Dose: 650 mg Al Hydroxide/Mg Hydroxide (Magnesium Hydrox/Alum Hydrox 30 Ml Oral.Susp) 30 ml PO Q6H PRN PRN Reason: Heartburn/Nausea Gabapentin (Gabapentin 100 Mg Capsule) 100 mg PO BEDTIME [facility] Last Admin: 02/10/24 20:18 Dose: 100 mg Hydroxyzine HCl (Hydroxyzine Hcl 25 Mg Tablet) 25 mg PO Q6H PRN PRN Reason: Anxiety Last Admin: 02/07/24 18:23 Dose: 25 mg [place] Carbonate ([place] Carbonate Er 450 Mg Tablet.Er) 900 mg PO BID [facility] Last Admin: 02/11/24 09:17 Dose: 900 mg Magnesium Hydroxide (Milk Of Magnesia 30 Ml Oral.Susp) 30 ml PO DAILY PRN PRN Reason: Constipation Nicotine Polacrilex (Nicotine Polacrilex 2 Mg Gum) 4 mg BUCCAL Q2H PRN PRN Reason: Nicotine Cravings Last Admin: 02/08/24 19:58 Dose: 4 mg Olanzapine (Olanzapine 10 Mg Tablet) 10 mg PO BEDTIME [facility] Last Admin: 02/10/24 20:18 Dose: 10 mg Trazodone HCl (Trazodone Hcl 50 Mg Tablet) 50 mg PO BEDTIME MRX1 PRN PRN Reason: Insomnia Last Admin: 02/10/24 20:18 Dose: 50 mg Allergies Allergies Allergy/AdvReac Type Severity Reaction Status Date / Time No Known Allergies Allergy Verified 02/01/24 11:44 Assessment & Plan Assessment & Plan (1) Chronic schizophrenia: Status: Acute Code(s): F20.9 - Schizophrenia, unspecified Plan 02/01: continue zyprexa 15 mg QHS for now. collateral from outpt provider rachid; texted 02/01. 02/02: collateral obtained from [facility]; pt is new to [facility] and rachid believes pt has poor record of compliance. today in mtg with MD and pt's father, pt was labile, disorganized, paranoid. per father, pt sleeps very little, is grandiose and labile, c/w lizette. will add lithium to regimen. 02/03: calm today. continue current mgmt. commitment paperwork completed. 02/04 continue tx 02/05 continue tx. 02/06: remains disorganized and delusional. unclear if affective Sx have improved, although pt did receive the news of filing for commitment without reaction. continue current mgmt. 02/07: disorganized but pleasant. amenable to have labs tonight. court set for next tuesday 02/13. 02/08: stable. lithium 0.47, other labs reassuring. increase lithium to 900 BID. check labs wednesday morning. court wednesday. 02/09: sedated this morning again, decrease HS zyprexa from 15 mg to 10 mg. otherwise continue current mgmt. 02/10: up and about this morning, notably with fluent and contentless speech. continue current mgmt for now. check labs on wednesday. Reason for continued inpatient stay Substantial Risk for: inability to function and rapid decompensation Time Spent With Patient Time: Total time managing care of this patient today __25__ minutes.
[2024-02-11] MEDS: Nicotine Polacrilex 2 MG GUM 4 MG BUCCAL ×2 (13:00→19:18)
[2024-02-11 19:50] VITALS: PULSE 113; RESP 16; TEMP 37.3; O2SAT 94
[2024-02-11] MEDS: Acetaminophen 325 MG TABLET 650 MG PO (19:58)
[2024-02-11] MEDS: OLANZapine 10 MG TABLET PO (20:44)
[2024-02-11] MEDS: Gabapentin 100 MG CAPSULE PO (20:44)
[2024-02-11 21:15] VITALS: TEMP 36.9
[2024-02-12 07:40] VITALS: BP 118/65; PULSE 75; RESP 16; TEMP 36.4; O2SAT 97
[2024-02-12] MEDS: Lithium Carbonate ER 450 MG TABLET.ER 900 MG PO ×2 (08:41→20:15)
--- NOTE | 2024-02-12 13:43 | P.PNPSI_ITS ---
Subjective Subjective Date of Service: 02/12/24 Reason For Visit: SEC 12,AUD HALLUC,AGGRESIVE,HPD ON BOARD PER EMS Subjective Notes: Section 7 Interim History: The nursing staff reported the patient had been bizarre last night but compliant with treatment no evidence of agitation. On interview the patient denies new symptoms, compliant with treatment Mental Status Exam Mental Status Exam Patient Appearance: Appropriate Patient Orientation: Person and Situation Level of Consciousness: Awake and Appropriate Patient Behavior: Guarded and Passive Mood Description: Withdrawn Affect Description: Constricted Patient Cognition Impaired: Yes Ability to Follow Directions: Good Speech Pattern: Clear Hallucinations: None Delusions: Paranoid Ideation and Ideas of Reference Thought Process: Distracted and Slowed Thinking Thought Content: positive for Walling and positive for Thought Blocking Judgement: Fair Diagnostics Vital Signs (24Hr): Vital Signs - 24 hr 02/11/24 19:50 02/11/24 21:15 02/12/24 07:40 Temperature 99.2 F 98.5 F 97.6 F Pulse Rate 113 H 75 Respiratory Rate 16 16 Blood Pressure 118/65 Pulse Oximetry 94 97 Oxygen Delivery Method Room Air Room Air BMI result Body Mass Index 43.5 Labs 02/08/24 20:19 02/08/24 20:19 Medications Medications Current Medications Acetaminophen (Acetaminophen 325 Mg Tablet) 650 mg PO Q6H PRN PRN Reason: Headache/Pain Mild Scale (1-3) Last Admin: 02/11/24 19:58 Dose: 650 mg Al Hydroxide/Mg Hydroxide (Magnesium Hydrox/Alum Hydrox 30 Ml Oral.Susp) 30 ml PO Q6H PRN PRN Reason: Heartburn/Nausea Gabapentin (Gabapentin 100 Mg Capsule) 100 mg PO BEDTIME [facility] Last Admin: 02/11/24 20:44 Dose: 100 mg Hydroxyzine HCl (Hydroxyzine Hcl 25 Mg Tablet) 25 mg PO Q6H PRN PRN Reason: Anxiety Last Admin: 02/07/24 18:23 Dose: 25 mg [place] Carbonate ([place] Carbonate Er 450 Mg Tablet.Er) 900 mg PO BID [facility] Last Admin: 02/12/24 08:41 Dose: 900 mg Magnesium Hydroxide (Milk Of Magnesia 30 Ml Oral.Susp) 30 ml PO DAILY PRN PRN Reason: Constipation Nicotine Polacrilex (Nicotine Polacrilex 2 Mg Gum) 4 mg BUCCAL Q2H PRN PRN Reason: Nicotine Cravings Last Admin: 02/11/24 19:18 Dose: 4 mg Olanzapine (Olanzapine 10 Mg Tablet) 10 mg PO BEDTIME [facility] Last Admin: 02/11/24 20:44 Dose: 10 mg Trazodone HCl (Trazodone Hcl 50 Mg Tablet) 50 mg PO BEDTIME MRX1 PRN PRN Reason: Insomnia Last Admin: 02/10/24 20:18 Dose: 50 mg Allergies Allergies Allergy/AdvReac Type Severity Reaction Status Date / Time No Known Allergies Allergy Verified 02/01/24 11:44 Assessment & Plan Assessment & Plan (1) Chronic schizophrenia: Status: Acute Code(s): F20.9 - Schizophrenia, unspecified Plan 02/01: continue zyprexa 15 mg QHS for now. collateral from outpt provider rachid; texted 02/01. 02/02: collateral obtained from [facility]; pt is new to [facility] and rachid believes pt has poor record of compliance. today in mtg with MD and pt's father, pt was labile, disorganized, paranoid. per father, pt sleeps very little, is grandiose and labile, c/w lizette. will add lithium to regimen. 02/03: calm today. continue current mgmt. commitment paperwork completed. 02/04 continue tx 02/05 continue tx. 02/06: remains disorganized and delusional. unclear if affective Sx have improved, although pt did receive the news of filing for commitment without reaction. continue current mgmt. 02/07: disorganized but pleasant. amenable to have labs tonight. court set for next tuesday 02/13. 02/08: stable. lithium 0.47, other labs reassuring. increase lithium to 900 BID. check labs wednesday morning. court wednesday. 02/09: sedated this morning again, decrease HS zyprexa from 15 mg to 10 mg. otherwise continue current mgmt. 02/10: up and about this morning, notably with fluent and contentless speech. continue current mgmt for now. check labs on wednesday. 02/11 continue same treatment Reason for continued inpatient stay Substantial Risk for: inability to function, rapid decompensation and med/psych decompensation Time Spent With Patient Time: Total time managing care of this patient today __20__ minutes.
[2024-02-12] MEDS: Nicotine Polacrilex 2 MG GUM 4 MG BUCCAL ×2 (16:50→18:53)
[2024-02-12 20:00] VITALS: BP 138/89; PULSE 117; RESP 18; TEMP 37.2; O2SAT 97
[2024-02-12] MEDS: Gabapentin 100 MG CAPSULE PO (20:14)
[2024-02-12] MEDS: OLANZapine 10 MG TABLET PO (20:15)
[2024-02-13 08:00] VITALS: BP 124/77; PULSE 81; RESP 18; TEMP 36.7; O2SAT 98
[2024-02-13] MEDS: Lithium Carbonate ER 450 MG TABLET.ER 900 MG PO ×2 (09:09→20:31)
--- NOTE | 2024-02-13 11:58 | HO.PSYCHPN ---
Subjective Subjective Date of Service: 02/13/24 Reason For Visit: SEC 12,AUD HALLUC,AGGRESIVE,HPD ON BOARD PER EMS Interim History: The nursing staff reported the patient slept 8 hours, she denies any symptoms but he has seen responding to internal stimuli. He refused to have a visitor yesterday, his father came to visit him. On interview the patient denies new symptoms successfully. Mental Status Exam Mental Status Exam Patient Appearance: Unkempt Patient Orientation: Person and Situation Level of Consciousness: Awake Patient Behavior: Guarded and Passive Mood Description: Withdrawn Affect Description: Constricted Ability to Follow Directions: Good Speech Pattern: Clear Hallucinations: None Delusions: Paranoid Ideation and Ideas of Reference Thought Process: Distracted and Slowed Thinking Thought Content: positive for Tibbie and positive for Poverty of Content Judgement: Fair Diagnostics Vital Signs (24Hr): Vital Signs - 24 hr 02/12/24 20:00 02/13/24 08:00 Temperature 99 F 98.1 F Pulse Rate 117 H 81 Respiratory Rate 18 18 Blood Pressure 138/89 124/77 Pulse Oximetry 97 98 Oxygen Delivery Method Room Air Room Air BMI result Body Mass Index 43.5 Labs 02/08/24 20:19 02/08/24 20:19 Medications Medications Current Medications Acetaminophen (Acetaminophen 325 Mg Tablet) 650 mg PO Q6H PRN PRN Reason: Headache/Pain Mild Scale (1-3) Last Admin: 02/11/24 19:58 Dose: 650 mg Al Hydroxide/Mg Hydroxide (Magnesium Hydrox/Alum Hydrox 30 Ml Oral.Susp) 30 ml PO Q6H PRN PRN Reason: Heartburn/Nausea Gabapentin (Gabapentin 100 Mg Capsule) 100 mg PO BEDTIME [facility] Last Admin: 02/12/24 20:14 Dose: 100 mg Hydroxyzine HCl (Hydroxyzine Hcl 25 Mg Tablet) 25 mg PO Q6H PRN PRN Reason: Anxiety Last Admin: 02/07/24 18:23 Dose: 25 mg [place] Carbonate ([place] Carbonate Er 450 Mg Tablet.Er) 900 mg PO BID [facility] Last Admin: 02/13/24 09:09 Dose: 900 mg Magnesium Hydroxide (Milk Of Magnesia 30 Ml Oral.Susp) 30 ml PO DAILY PRN PRN Reason: Constipation Nicotine Polacrilex (Nicotine Polacrilex 2 Mg Gum) 4 mg BUCCAL Q2H PRN PRN Reason: Nicotine Cravings Last Admin: 02/12/24 18:53 Dose: 4 mg Olanzapine (Olanzapine 10 Mg Tablet) 10 mg PO BEDTIME [facility] Last Admin: 02/12/24 20:15 Dose: 10 mg Trazodone HCl (Trazodone Hcl 50 Mg Tablet) 50 mg PO BEDTIME MRX1 PRN PRN Reason: Insomnia Last Admin: 02/10/24 20:18 Dose: 50 mg Allergies Allergies Allergy/AdvReac Type Severity Reaction Status Date / Time No Known Allergies Allergy Verified 02/01/24 11:44 Assessment & Plan Assessment & Plan (1) Chronic schizophrenia: Status: Acute Code(s): F20.9 - Schizophrenia, unspecified Plan 02/01: continue zyprexa 15 mg QHS for now. collateral from outpt provider rachid; texted 02/01. 02/02: collateral obtained from [facility]; pt is new to [facility] and rachid believes pt has poor record of compliance. today in mtg with MD and pt's father, pt was labile, disorganized, paranoid. per father, pt sleeps very little, is grandiose and labile, c/w lizette. will add lithium to regimen. 02/03: calm today. continue current mgmt. commitment paperwork completed. 02/04 continue tx 02/05 continue tx. 02/06: remains disorganized and delusional. unclear if affective Sx have improved, although pt did receive the news of filing for commitment without reaction. continue current mgmt. 02/07: disorganized but pleasant. amenable to have labs tonight. court set for next tuesday 02/13. 02/08: stable. lithium 0.47, other labs reassuring. increase lithium to 900 BID. check labs wednesday morning. court wednesday. 02/09: sedated this morning again, decrease HS zyprexa from 15 mg to 10 mg. otherwise continue current mgmt. 02/10: up and about this morning, notably with fluent and contentless speech. continue current mgmt for now. check labs on wednesday. 02/11 continue same treatment 02/12 continue same treatment Reason for continued inpatient stay Substantial Risk for: inability to function, rapid decompensation and med/psych decompensation Time Spent With Patient Time: Total time managing care of this patient today __20__ minutes.
[2024-02-13] MEDS: Acetaminophen 325 MG TABLET 650 MG PO (12:50)
[2024-02-13] MEDS: Nicotine Polacrilex 2 MG GUM 4 MG BUCCAL (18:54)
[2024-02-13 20:00] VITALS: BP 144/93; PULSE 120; RESP 16; TEMP 37.1; O2SAT 97
[2024-02-13] MEDS: Gabapentin 100 MG CAPSULE PO (20:30)
[2024-02-13] MEDS: OLANZapine 10 MG TABLET PO (20:31)
[2024-02-14 07:50] VITALS: BP 121/58; PULSE 86; RESP 16; TEMP 37.1; O2SAT 97
[2024-02-14] MEDS: Lithium Carbonate ER 450 MG TABLET.ER 900 MG PO (08:32)
--- NOTE | 2024-02-14 10:28 | PM.PSYDC ---
DS: Providers Provider Date of Service: 02/14/24 Date of admission: 02/01/24 17:06 Date of discharge: 02/14/24 Primary care physician: [facility] Attending physician on admission: Jaun Zapata Attending physician on discharge: Librado Sorto Discharging clinician: Treva Shelby DS: Diagnosis Discharge Diagnosis (1) Chronic schizophrenia: Status: Acute DS: Medications Discharge Medications Home Medications: Previous Rx's ?Medication ?Instructions ?Recorded olanzapine 15 mg disintegrating 15 mg PO BEDTIME #30 tabs 02/04/23 tablet (Zyprexa Zydis) Mental Status Exam Mental Status Exam Patient Appearance: Appropriate Patient Orientation: Person, Place, Time and Situation Level of Consciousness: Awake and Appropriate Patient Behavior: Appropriate and Cooperative Mood Description: Calm Affect Description: Calm Ability to Follow Directions: Good Speech Pattern: Clear Hallucinations: None Delusions: Not Present Thought Process: Intact Thought Content: positive for Intact Judgement: Fair Data Data Completed and Pending Completed studies during hospitalization [Text1]: 02/08/24 20:19 WBC 13.5 H RBC 4.91 Hgb 14.9 Hct 43.5 MCV 88.6 MCH 30.3 MCHC 34.3 RDW 13.2 Plt Count 361 MPV 9.6 Immature Gran % (Auto) 0.4 Neut % (Auto) 67.8 Lymph % (Auto) 22.6 [place] % (Auto) 6.7 Eos % (Auto) 1.9 Baso % (Auto) 0.6 Lymph # (Auto) 3.1 [place] # (Auto) 0.9 Eos # (Auto) 0.3 Baso # (Auto) 0.1 Abs Immat Gran (auto) 0.06 H Absolute Neuts (auto) 9.2 H Absolute Nucleated RBC 0.000 Nucleated RBC % (auto) 0.0 Sodium 141 Potassium 3.6 Chloride 103 Carbon Dioxide 23 Anion Gap 19 BUN 12 Creatinine 1.01 Estim Creat Clear Calc 165.6 Estimated GFR > 60 Random Glucose 109 Calcium 10.3 H D [employer] 0.47 L DS: Summary Hospital Course Hospital Course: per [facility] mobile crisis assessment, pt has been non-compliant with medications, having had only 1-2 doses since 01/19, and about a week [employer] had begun to stand at his window for extended periods of time yelling, screaming, and cursing at people outside. per [facility] eval, pt's father had removed all furniture from pt's room, leaving only a mattress on the floor, as pt otherwise destroys the furniture. [facility] staff described pt as responding to internal stimuli and yelling out the window throughout the meeting, at one person in particular. he reported to clinician that a mole on his skin was giving him orders. pt's father c/o insatiable appetite of pt recently. [facility] staff had met with pt before, and staff felt pt's condition at the interview described above was much worse than his usual presentation. [facility] clinician explicitly noted pt did not acknowledge mental illness and stated he would not take medication. per [facility] note, pt was very agitated and aggressive on arrival and did agree to PO medication at that time. on interview with MD on behavioral health unit, pt was minimizing substance use and denying various aspects of his psychiatric history. 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 he did not acknowledge mental illness, but he did say he would take medication as prescribed. he presented as surly, irritable, and evasive. his thoughts appeared to be linear when he uttered very terse answers, but when he spoke at more length or spontaneously, it was fluid but unintelligible. he suggested he should be discharged today and requested MD call his father in effort to advance that agenda. During hospital course, continue zyprexa 15 mg QHS for now. collateral from outpt provider rachid; texted 02/01. collateral obtained from [facility]; pt is new to [facility] and rachid believes pt has poor record of compliance. today in mtg with MD and pt's father, pt was labile, disorganized, paranoid. per father, pt sleeps very little, is grandiose and labile, c/w lizette. will add lithium to regimen. calm today. continue current mgmt. commitment paperwork completed. remains disorganized and delusional. unclear if affective Sx have improved, although pt did receive the news of filing for commitment without reaction. continue current mgmt. disorganized but pleasant. amenable to have labs tonight. court set for next tuesday 02/13. stable. lithium 0.47, other labs reassuring. increase lithium to [address] labs [address] wednesday. sedated this morning again, decrease HS zyprexa from 15 mg to 10 mg. otherwise continue current mgmt. up and about this morning, notably with fluent and contentless speech. continue current mgmt for now. check labs on wednesday. Met with pt, patient's father, and geriatric social work professor, Tere. Pt presents alert and oriented, calm, cooperative. Pt reports feeling good today; pt reported he is hoping to go home today and likes the way [employer] makes him feel stable . Pt reports he plans on being medication compliant and following up with outpatient providers. pt denies SI/HI/VH/AH. Pt's father reports feeling comfortable taking patient home and is glad to see patient has improved. [employer] level 1.00 on 02/14/2024. Pt educated on following up with outpatient providers regarding lithium level and dosage. Court cancelled d/t patient's mental status, cooperative with treatment and medication compliance. Time spent discussing smoking cessation with patient: 3 to 10 minutes Status at Discharge Cognitive/behavioral status at discharge: Patient was interviewed prior to discharge and found to be fully oriented and without SI or HI. Patient has insight and demonstrates good judgment in terms of wanting to pursue treatment. Patient has a safety plan that includes presenting to the closest ER or calling 911 if feeling unsafe. Functional status at discharge: independent ambulation Overall status at discharge: patient is back to baseline Time Spent with Patient Time attestation: Total time managing care of this patient today _30___ minutes. Time spent: Less than 30 minutes Discharge Plan Discharge Anticipated Discharge Date/Time: 02/14/24 12:00 Patient Disposition: Home, Self-Care Discharge Diagnosis: Schizophrenia Referrals: [facility]- Renee Amaya (Therapist) [Other] - 02/17/24 11:00 am (Please arrive 15 minutes before appointment to fill out intake paperwork ) [facility] [Primary Care Provider] - 1 Week Discharge Medications: New gabapentin 100 mg Capsule 100 mg PO BEDTIME 30 Days Qty: 30 0RF olanzapine 10 mg Tablet 10 mg PO BEDTIME 30 Days Qty: 30 0RF lithium carbonate 450 mg Tablet Extended Release 900 mg PO BID 14 Days Qty: 56 1RF Discontinued olanzapine [Zyprexa Zydis] 15 mg tablet,disintegrating 15 mg PO BEDTIME Qty: 30 0RF Discharge Orders: Discharge Order (Routine); Ordered 02/14/24 Ordered By: Treva Shelby Diet: Regular diet Activity on Discharge: As tolerated Stand Alone Forms: Patient Portal Discharge page, Community Support Print Language: Yoruba Care Plan Goals: Maintain mood and safe behaviors Take medications as prescribed Practice coping skills Continue with outpatient providers and reach out to them as needed Health Concerns: Mood stability and behaviors Plan of Treatment: Follow up with your PCP, psychiatric provider and other outpatient providers regarding above concerns Take medications as prescribed Assessment: Patient was interviewed prior to discharge and found to be fully oriented and without SI or HI. Patient has insight and demonstrates good judgment in terms of wanting to pursue treatment. Patient has a safety plan that includes presenting to the closest ER or calling 911 if feeling unsafe. Discharge Date/Time: 02/14/24 11:42
[2024-02-14 11:08] LABS: Lithium 1.01 mmol/L (0.60-1.20)
[2024-02-14 11:13] LABS: Anion Gap 15 (12-20); Blood Urea Nitrogen 12 mg/dL (9-16); Carbon Dioxide 25 mmol/L (22-29); Chloride 105 mmol/L (96-108); Creatinine Clr Calc Pharmacy 167.3; Estimated Glomerular Filt Rate > 60; Potassium 3.7 mmol/L (3.3-5.1); Sodium 141 mmol/L (135-145)
[2024-02-14 11:17] LABS: Anion Gap 14 (12-20); Blood Urea Nitrogen 12 mg/dL (9-16); Calcium 10.2 mg/dL (8.4-10.2); Carbon Dioxide 26 mmol/L (22-29); Chloride 104 mmol/L (96-108); Creatinine Clr Calc Pharmacy 167.3; Estimated Glomerular Filt Rate > 60; Glucose Random 98 mg/dL (60-115); Potassium 3.7 mmol/L (3.3-5.1); Sodium 140 mmol/L (135-145)
== END 2024-02-14 11:42 | disposition home or self-care (01) | DRG 750 ==
LOC: HO.ED 12:36 → HO.PADLT16 17:09
PROVIDERS: Registered Nurse; Admitting Provider Psychiatry & Neurology Psychiatry; Emergency Provider Emergency Medicine; Visit Provider Psychiatry & Neurology Psychiatry
DX: F20.9 Schizophrenia, unspecified (principal); F17.210 Nicotine dependence, cigarettes, uncomplicated; Z71.6 Tobacco abuse counseling; Z20.822 Contact with and (suspected) exposure to COVID-19; Z91.199 Patient's noncompliance with other medical treatment and regimen due to unspecified reason; Z79.899 Other long term (current) drug therapy
CPT/HCPCS: 0241U; 36415; 80048; 80051; 80076; 80178; 80307; 81003; 82565; 83735; 84520; 85025; 99285

== ENCOUNTER → 2024-02-01 17:06 | Outpatient (BNV) | payer OTHER, SELFPAY | PROVIDERS: Admitting Provider Psychiatry & Neurology Psychiatry; Emergency Provider Emergency Medicine; Visit Provider Psychiatry & Neurology Psychiatry | DX: F20.9 Schizophrenia, unspecified (principal) | CPT/HCPCS: 99231; 99232; 99233 ==

== ENCOUNTER 2024-03-24 13:02 | Outpatient (REF) | payer OTHER, SELFPAY ==
[2024-03-24 16:39] LABS: Estimated Average Glucose 103 mg/dL; Hemoglobin A1c % 5.2 % (<6.0)
[2024-03-24 16:44] LABS: Lithium 0.14 mmol/L (0.60-1.20)
[2024-03-24 16:54] LABS: Cholesterol 170 mg/dL (<200); HDL Cholesterol 41 mg/dL (>40); LDL Cholesterol Calculated 94 mg/dL (<100); Triglycerides 179 mg/dL (<150)
[2024-03-24 17:03] LABS: TSH reflex Free T4 0.64 uIU/mL (0.32-4.0)
== END 2024-03-24 13:03 | disposition home or self-care (01) ==
LOC: HO.HHCL 13:02
PROVIDERS: Visit Provider Nurse Practitioner Primary Care
DX: F20.9 Schizophrenia, unspecified (principal); E78.5 Hyperlipidemia, unspecified; Z79.899 Other long term (current) drug therapy
CPT/HCPCS: 36415; 80061; 80178; 83036; 84443

== ENCOUNTER 2024-05-17 17:32 | Inpatient (IN) | payer MEDICAID, OTHER, SELFPAY ==
[2024-05-17] MEDS: LORazepam 1 MG TABLET 2 MG PO (17:43)
[2024-05-17] MEDS: OLANZapine ODT 10 MG TAB.RAPDIS TRANSLINGU (17:44)
[2024-05-17] MEDS: diphenhydrAMINE HCL 25 MG CAPSULE 50 MG PO (17:44)
[2024-05-17 17:51] VITALS: BP 142/100; PULSE 108; RESP 20; TEMP 37.1; O2SAT 100; BMI 37.3
[2024-05-17 18:26] LABS: MANUAL DIFF FLAG NO
[2024-05-17 18:30] LABS: Basophils Absolute Auto 0.1 X10*3/uL (0.0-0.2); Basophils Percent Auto 0.5 % (0-2); Eosinophils Absolute Auto 0.2 X10*3/uL (0.0-0.4); Eosinophils Percent Auto 1.8 % (0-4); Hematocrit 42.2 % (42.0-52.0); Hemoglobin 14.5 g/dl (14.0-18.0); Imm Gran Abs Auto 0.07 X10*3/uL (0.00-0.03); Imm Gran Pct Auto 0.6 % (0.0-0.4); Lymphocytes Absolute Auto 2.2 X10*3/uL (1.2-4.9); Lymphocytes Percent Auto 17.7 % (20-40); Mean Corpuscular HGB Conc 34.4 g/dl (31.0-36.0); Mean Corpuscular Hemoglobin 30.2 pg (27.0-33.0); Mean Corpuscular Volume 87.9 fL (80.0-98.0); Mean Platelet Volume 9.4 fL (9.4-12.4); Monocytes Absolute Auto 0.8 X10*3/uL (0.1-1.2); Monocytes Percent Auto 6.5 % (2-11); Neutrophils Absolute Auto 9.2 x10*3/uL (2.0-8.3); Neutrophils Percent Auto 72.9 % (45-73); Platelet Count 305 X10*3/uL (160-400); Red Cell Distribution Width 13.4 % (11.0-16.0); White Blood Count 12.6 X10*3/uL (4.8-10.8)
--- NOTE | 2024-05-17 18:33 | ED_ITS ---
HPI - Psych General Chief Complaint: Psychiatric Symptoms Stated Complaint: CRISIS,SCHIZOPHRENIA,NON MED COMPLIANT Time Seen by Provider: 05/17/24 17:36 Source: patient and EMS Mode of arrival: EMS Limitations: other (See narrative below) History of Present Illness HPI Narrative: Patient is a 23-year-old male who presents emergency department via EMS with PD on board, he is coming from a [facility] respite home, has a history of schizophrenia and has not been taking his medications, is decompensating placed on a section 12. On his arrival it is very difficult to obtain much history from him, he is yelling about money, his haircut, and splashing water over his face. He is agreeable to taking oral medications to relaxant self, somewhat redirectable. Has clearly disorganized thoughts and speech. Per his section 12 he has not been performing his ADLs, mostly unresponsive to any external stimuli. When asked he denies having hallucinations. He denies suicidal or homicidal ideations. Related Data Previous Rx's ?Medication ?Instructions ?Recorded gabapentin 100 mg capsule 100 mg PO BEDTIME 30 days #30 caps 02/14/24 lithium carbonate 450 mg 900 mg (2 x 450 mg) PO BID 14 days 02/14/24 tablet,extended release #56 tabs olanzapine 10 mg tablet 10 mg PO BEDTIME 30 days #30 tabs 02/14/24 Allergies Allergy/AdvReac Type Severity Reaction Status Date / Time No Known Allergies Allergy Verified 05/17/24 17:54 Review of Systems 2 Review of Systems: Yes all other systems are reviewed and are negative PMFSH Past Medical History Attestation statement: The following information was validated with the patient. Source: old records reviewed Medical History Chronic schizophrenia Social History Social History Household Members: Family Household Members Other:: Father Housing: House Do you presently have visiting nurse or other home services: No Alcohol intake: never Patient Tobacco Use Status: Current someday Tobacco user Tobacco use type: Cigarette Cigarette Packs Per Day: 0 Cigarettes Per Day: 3 Smoked in Last 30 Days: No e-Cigarette/Vaping Use: Never Used Second Hand Smoke Exposure: No Substance Use Type: Marijuana Advance Directives: No Advance Directives Information Provided: No service: No Sexual orientation: Straight/Heterosexual Physical Exam 2 Vital Signs: Vital Signs: Last Vital Signs Temp 98.4 F 05/17/24 20:19 Pulse 79 05/17/24 20:19 Resp 17 05/17/24 20:19 BP 110/61 05/17/24 20:19 Pulse Ox 97 05/17/24 20:19 O2 Del Method Room Air 05/17/24 20:19 BMI result Body Mass Index 37.3 Appearance: Alert.? Unable to assess orientation status. Disorganized thought process, echolalia, appears to be responding to internal stimuli though denies, agitated on arrival but not aggressive toward staff. Eyes: Pupils equal, round and reactive to light.? ENT: Pharynx normal.?? Neck: Normal inspection.? Neck supple.?? CVS: Heart sounds normal. Tachycardic? Pulses normal.?? Respiratory: No respiratory distress.? Lung sounds clear to auscultation bilaterally?? Abdomen: Soft and non-tender. Normoactive bowel sounds. Skin: Skin warm and dry.? Normal skin color.? Extremities: No lower extremity edema.? Neuro: Moves all extremities spontaneously. Sensation intact bilaterally. CN II- XII intact. No focal neuro deficits. Ambulates with normal steady gait. Medications Administered Discontinued Medications Generic Name Dose Route Start Last Admin Trade Name Freq PRN Reason Stop Dose Admin Diphenhydramine HCl 50 mg 05/17/24 17:39 05/17/24 17:44 Diphenhydramine Hcl 25 Mg Capsule PO 05/17/24 17:40 50 mg ONCE ONE Administration Lorazepam 2 mg 05/17/24 17:39 05/17/24 17:43 Lorazepam 1 Mg Tablet PO 05/17/24 17:40 2 mg ONCE ONE Administration Olanzapine 10 mg 05/17/24 17:39 05/17/24 17:44 Olanzapine Odt 10 Mg Tab.Rapdis TRANSLINGU 05/17/24 17:40 10 mg ONCE ONE Administration Medical Decision Making Medical Decision Making MDM Narrative: Patient is a 23-year-old male with past medical history of schizophrenia presenting on a section 12 as per HPI. Clinically appears decompensated. Unclear whether he was evaluated in the community while at [facility] rest home. I have consulted care team for assistance with disposition planning, anticipate he will require inpatient psychiatric services, care team evaluation to be completed if not done in the community. Patient was amenable to taking oral medications, he received olanzapine, lorazepam, and Benadryl with good effect. He offers no physical complaints in his physical examination is benign aside from mild tachycardia which would be expected in light of his acute presentation. Serum labs to be obtained for medical clearance. Differential Diagnosis Differential Diagnoses: The differential diagnosis associated with the presentation includes (Acute decompensated schizophrenia) Admission/Observation Consideration of admission/observation: Escalation of care including admission/observation considered Patient is being observed in the Emergency Department for depression and anxiety. Observation time was started at 18:37 on 05/17/2024.?The patient is currently stable and non-toxic appearing. Observation is being initiated in the Emergency Department to allow time to help differentiate if the patient's depression and anxiety is due to Substance Induced Mood Disorder and Anxiety versus Major Depressive Disorder, Bipolar Caity, Bipolar Depression, and Schizophrenia. The patient will receive frequent psychiatric assessments from the provider as well as from nursing staff. The patient will also be monitored for the need of PRN agitation medicationsl. Consult Healthcare Provider Management of the patient was discussed with: Behavioral Health Provider (As per narrative above) Lab Data 05/17/24 18:22 05/17/24 18:22 Labs: Lab Results 05/17/24 Range/Units 18:22 WBC 12.6 H (4.8-10.8) X10*3/uL RBC 4.80 (4.60-5.80) X10*6/uL Hgb 14.5 (14.0-18.0) g/dl Hct 42.2 (42.0-52.0) % MCV 87.9 (80.0-98.0) fL MCH 30.2 (27.0-33.0) pg MCHC 34.4 (31.0-36.0) g/dl RDW 13.4 (11.0-16.0) % Plt Count 305 (160-400) X10*3/uL MPV 9.4 (9.4-12.4) fL Immature Gran % (Auto) 0.6 H (0.0-0.4) % Neut % (Auto) 72.9 (45-73) % Lymph % (Auto) 17.7 L (20-40) % [place] % (Auto) 6.5 (2-11) % Eos % (Auto) 1.8 (0-4) % Baso % (Auto) 0.5 (0-2) % Lymph # (Auto) 2.2 (1.2-4.9) X10*3/uL [place] # (Auto) 0.8 (0.1-1.2) X10*3/uL Eos # (Auto) 0.2 (0.0-0.4) X10*3/uL Baso # (Auto) 0.1 (0.0-0.2) X10*3/uL Abs Immat Gran (auto) 0.07 H (0.00-0.03) X10*3/uL Absolute Neuts (auto) 9.2 H (2.0-8.3) x10*3/uL Absolute Nucleated RBC 0.000 (0.0-0.012) X10*3/uL Nucleated RBC % (auto) 0.0 (0.0-0.2) /100WBC Sodium 140 (135-145) mmol/L Potassium 3.6 (3.3-5.1) mmol/L Chloride 105 (96-108) mmol/L Carbon Dioxide 24 (22-29) mmol/L Anion Gap 15 (12-20) BUN 13 (9-16) mg/dL Creatinine 1.06 (0.5-1.4) mg/dL Estim Creat Clear Calc 145.3 Estimated GFR > 60 Random Glucose 93 (60-115) mg/dL Calcium 9.8 (8.4-10.2) mg/dL Total Bilirubin 0.2 (0.0-1.0) mg/dL AST 28 (5-37) U/L ALT 43 H (0-40) U/L Alkaline Phosphatase 65 (39-117) U/L Total Protein 7.5 (6.5-8.0) g/dL Albumin 4.3 (3.5-5.0) g/dL Ethyl Alcohol < 10 mg/dL Independent Historian Clinical information obtained from an independent historian. History obtained from or confirmed by: EMS Discharge Plan Discharge Clinical Impression: Schizophrenia Patient Disposition: Still a Patient Prescriptions: No Action gabapentin 100 mg Capsule 100 mg PO BEDTIME 30 Days Qty: 30 0RF olanzapine 10 mg Tablet 10 mg PO BEDTIME 30 Days Qty: 30 0RF lithium carbonate 450 mg Tablet Extended Release 900 mg PO BID 14 Days Qty: 56 1RF Interventions: [place]-Suicide Risk Severity Scale Last Done: 05/17/24 20:26 Print Language: Vietnamese
[2024-05-17 18:44] LABS: Alanine Aminotransferase 43 U/L (0-40); Albumin Level 4.3 g/dL (3.5-5.0); Alkaline Phosphatase 65 U/L (39-117); Anion Gap 15 (12-20); Aspartate Amino Transferase 28 U/L (5-37); Bilirubin Total 0.2 mg/dL (0.0-1.0); Blood Urea Nitrogen 13 mg/dL (9-16); Calcium 9.8 mg/dL (8.4-10.2); Carbon Dioxide 24 mmol/L (22-29); Chloride 105 mmol/L (96-108); Creatinine Clr Calc Pharmacy 145.3; Estimated Glomerular Filt Rate > 60; Ethanol < 10 mg/dL; Glucose Random 93 mg/dL (60-115); Potassium 3.6 mmol/L (3.3-5.1); Sodium 140 mmol/L (135-145); Total Protein 7.5 g/dL (6.5-8.0)
[2024-05-17 20:19] VITALS: BP 110/61; PULSE 79; RESP 17; TEMP 36.9; O2SAT 97
--- NOTE | 2024-05-18 | ECG_ITS ---
Test Reason : psych symptoms Blood Pressure : / mmHG Vent. Rate : 088 BPM Atrial Rate : 088 BPM P-R Int : 144 ms QRS Dur : 110 ms QT Int : 380 ms P-R-T Axes : 047 043 024 degrees QTc Int : 459 ms Normal sinus rhythm Normal ECG When compared with ECG of 28-JAN-2023 09:39, No significant change was found Referred By: Dane Fernandes Electronically Signed By:KUMAR NIELSON MD
--- NOTE | 2024-05-18 08:50 | PC.NURSE ---
Med rec completed by this RN with the patient, unclear exactly what time/ day pt took meds.
[2024-05-18] MEDS: Lithium Carbonate ER 450 MG TABLET.ER 900 MG PO ×2 (10:27→20:13)
[2024-05-18] MEDS: QUEtiapine Fumarate 100 MG TABLET PO (10:43)
[2024-05-18] MEDS: LORazepam 1 MG TABLET 2 MG PO (10:43)
--- NOTE | 2024-05-18 10:46 | PC.NURSE ---
Pt noted to be yelling, continuous talking, swearing and angry. Pt agrees to take PO meds to calm down, medicated per MAR. Will continue to monitor.
[2024-05-18] MEDS: Haloperidol Lactate 5 MG/ML VIAL IM (11:27)
[2024-05-18] MEDS: LORazepam 2 MG/ML VIAL IM (11:27)
[2024-05-18] MEDS: diphenhydrAMINE HCL 50 MG/ML VIAL IM (11:27)
--- NOTE | 2024-05-18 11:28 | PC.NURSE ---
Pt continues to be agitated and yelling, swearing. Becoming harder to redirect. Security at bedside. Provider at bedside, ordered IM medications. Pt agreed to take IM meds, medicated per MAR. Allows vitals to be taken.
[2024-05-18 11:30] VITALS: BP 162/124; PULSE 146; RESP 26; TEMP 36.4; O2SAT 92
[2024-05-18 11:50] VITALS: RESP 18
[2024-05-18 11:51] VITALS: RESP 18
[2024-05-18 12:05] VITALS: RESP 18
[2024-05-18 14:16] VITALS: RESP 16
--- NOTE | 2024-05-18 14:16 | PC.NURSE ---
Pt continues to sleep, monitored and list sleeping, breathing even and unlabored, RR 16-18. Unable to obtain full set of vitals, pt was very agitated prior to medication administration.
[2024-05-18 16:58] VITALS: BP 103/93; PULSE 96; RESP 17; TEMP 37.3; O2SAT 96
--- NOTE | 2024-05-18 17:37 | PC.NURSE ---
Pts father visited briefly, ate meal with him. Pt much more calm and cooperative now.
[2024-05-18] MEDS: Gabapentin 100 MG CAPSULE PO (20:13)
[2024-05-18] MEDS: OLANZapine 10 MG TABLET PO (20:13)
[2024-05-19 06:23] VITALS: BP 104/61; PULSE 78; RESP 18; TEMP 36.4; O2SAT 96
[2024-05-19] MEDS: Lithium Carbonate ER 450 MG TABLET.ER 900 MG PO ×2 (09:52→22:18)
[2024-05-19] MEDS: diphenhydrAMINE HCL 25 MG CAPSULE 50 MG PO (09:53)
[2024-05-19] MEDS: LORazepam 1 MG TABLET 2 MG PO (09:53)
[2024-05-19] MEDS: HaloperidoL 5 MG TABLET 10 MG PO (09:53)
[2024-05-19 12:08] LABS: Appearance Urine Clear; Color Urine Yellow; Glucose Urine UA Negative (Negative); Leukocyte Esterase Urine Negative (Negative); Nitrite Urine Negative (Negative); PH 8.5 (5.0-9.0); Urine Blood Negative (Negative); Urine Ketones Trace mg/dL (Negative); Urine Protein Trace mg/dL (Neg-Trace)
[2024-05-19 12:16] LABS: Amphetamine Screen Urine Not Detected (Not Detect); Barbiturates, Urine Not Detected (Not Detect); Benzodiazepines Screen Urine Not Detected (Not Detect); Buprenorphine Scr Not Detected (Not Detect); Cannabinoid Screen Urine POSITIVE (Not Detect); Cocaine Screen Urine Not Detected (Not Detect); Fentanyl, urine Not Detected (Not Detect); Methadone Screen, Urine Not Detected (Not Detect); Opiate Screen Urine Not Detected (Not Detect); Oxycodone Screen Urine Not Detected (Not Detect); Phencyclidine Screen Urine Not Detected (Not Detect)
--- NOTE | 2024-05-19 13:16 | PC.NURSE ---
Nurse to nurse report given to RN Inpatient psych
[2024-05-19 15:00] VITALS: BP 140/86; PULSE 100; RESP 16; TEMP 36.6; O2SAT 99; BMI 36.8
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
[2024-05-19] MEDS: Nicotine Polacrilex 2 MG GUM 4 MG BUCCAL (16:06)
--- NOTE | 2024-05-19 16:37 | MHC.CARE ---
T/W received call from [facility]- they requested [facility] contact [facility] regarding d/c planning when client is d/c as client is a [facility] Client.
[2024-05-19] MEDS: hydrOXYzine HCL 25 MG TABLET PO (16:48)
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
[2024-05-19 20:00] VITALS: BP 121/75; PULSE 95; RESP 16; TEMP 36.1; O2SAT 97
[2024-05-19 21:07] LABS: Lithium 0.52 mmol/L (0.60-1.20)
[2024-05-19 21:12] LABS: Anion Gap 14 (12-20); Blood Urea Nitrogen 11 mg/dL (9-16); Calcium 10.7 mg/dL (8.4-10.2); Carbon Dioxide 24 mmol/L (22-29); Chloride 107 mmol/L (96-108); Creatinine Clr Calc Pharmacy 152.9; Estimated Glomerular Filt Rate > 60; Glucose Random 111 mg/dL (60-115); Potassium 3.7 mmol/L (3.3-5.1); Sodium 141 mmol/L (135-145)
[2024-05-19] MEDS: OLANZapine 10 MG TABLET PO (22:17)
[2024-05-19] MEDS: Gabapentin 100 MG CAPSULE PO (22:18)
[2024-05-20 08:00] VITALS: BP 113/57; PULSE 79; RESP 16; TEMP 36.8; O2SAT 97
--- NOTE | 2024-05-20 10:13 | P.PNPSI_ITS ---
Subjective Subjective Date of Service: 05/20/24 Reason For Visit: Schizophrenia Subjective Notes: Section 12B Interim History: Patient discussed with team. Patient seen in dining room. He was cooperative. Social. Visible in the milieu. Offers no concerns or complaints and denies psychiatric symptoms. He took his medications later in the morning. He made psychotic remarks about his medications being administered through an invisible device on his hand. Denies SI. Review of Systems Review of Systems Yes all other systems are reviewed and are negative Mental Status Exam Mental Status Exam Narrative: cooperative. nonchalant. dyed hair, large build. no PMA/PMR. speech fast, incr amount, nml loudness, decr latency. thoughts disorganized. affect constricted, normo-intense, non-labile. mood pretty good. denies SI/SIBI/HI/AVH. Diagnostics Vital Signs (24Hr): Vital Signs - 24 hr 05/19/24 15:00 05/19/24 20:00 05/20/24 08:00 Temperature 97.8 F 97.0 F 98.2 F Pulse Rate 100 95 79 Respiratory Rate 16 16 16 Blood Pressure 140/86 H 121/75 113/57 L Pulse Oximetry 99 97 97 Oxygen Delivery Method Room Air Room Air Room Air BMI result Body Mass Index 36.8 Labs 05/17/24 18:22 05/19/24 20:52 Labs: Laboratory Results - last 48 hr 05/19/24 05/19/24 11:48 20:52 Sodium 141 Potassium 3.7 Chloride 107 Carbon Dioxide 24 Anion Gap 14 BUN 11 Creatinine 1.00 Estim Creat Clear Calc 152.9 Estimated GFR > 60 Random Glucose 111 Calcium 10.7 H D Urine Color Yellow Urine Appearance Clear Urine pH 8.5 Ur Specific [place] 1.020 Urine Protein Trace Urine Glucose (UA) Negative Urine Ketones Trace Urine Blood Negative Urine Nitrite Negative Ur Leukocyte Esterase Negative Urine Opiates Screen Not Detected Ur Buprenorphine Scrn Not Detected Ur Oxycodone Screen Not Detected Urine Methadone Screen Not Detected Urine Fentanyl Screen Not Detected Ur Barbiturates Screen Not Detected Ur Phencyclidine Scrn Not Detected Ur Amphetamines Screen Not Detected U Benzodiazepines Scrn Not Detected [place] 0.52 L Urine Cocaine Screen Not Detected U Marijuana (THC) Screen POSITIVE H Medications Medications Current Medications Acetaminophen (Acetaminophen 325 Mg Tablet) 650 mg PO Q6H PRN PRN Reason: Headache/Pain Mild Scale (1-3) Al Hydroxide/Mg Hydroxide (Magnesium Hydrox/Alum Hydrox 30 Ml Oral.Susp) 30 ml PO Q6H PRN PRN Reason: Heartburn/Nausea Diphenhydramine HCl (Diphenhydramine Hcl 25 Mg Capsule) 25 mg PO BEDTIME PRN PRN Reason: insomnia Gabapentin (Gabapentin 100 Mg Capsule) 100 mg PO BEDTIME MIRELLA Last Admin: 05/19/24 22:18 Dose: 100 mg Hydroxyzine HCl (Hydroxyzine Hcl 25 Mg Tablet) 25 mg PO Q6H PRN PRN Reason: Anxiety Last Admin: 05/19/24 16:48 Dose: 25 mg [place] Carbonate ([place] Carbonate Er 450 Mg Tablet.Er) 900 mg PO BID MIRELLA Last Admin: 05/19/24 22:18 Dose: 900 mg Magnesium Hydroxide (Milk Of Magnesia 30 Ml Oral.Susp) 30 ml PO DAILY PRN PRN Reason: Constipation Nicotine (Nicotine 21 Mg Patch.Td24) 21 mg TRANSDERMA DAILY PRN PRN Reason: nicotine cravings Nicotine Polacrilex (Nicotine Polacrilex 2 Mg Gum) 4 mg BUCCAL Q2H PRN PRN Reason: Nicotine Cravings Last Admin: 05/19/24 16:06 Dose: 4 mg Olanzapine (Olanzapine 10 Mg Tablet) 10 mg PO BEDTIME MIRELLA Last Admin: 05/19/24 22:17 Dose: 10 mg Trazodone HCl (Trazodone Hcl 50 Mg Tablet) 50 mg PO BEDTIME MRX1 PRN PRN Reason: Insomnia Allergies Allergies Allergy/AdvReac Type Severity Reaction Status Date / Time No Known Allergies Allergy Verified 05/17/24 17:54 Assessment & Plan Assessment & Plan (1) Chronic schizophrenia: Status: Acute Code(s): F20.9 - Schizophrenia, unspecified Plan restart/continue home medications regimen 05/20: continue current management and treatment plan. Reason for continued inpatient stay Substantial Risk for: inability to function and rapid decompensation Time Spent With Patient Time: Total time managing care of this patient today ____ minutes.
[2024-05-20] MEDS: Lithium Carbonate ER 450 MG TABLET.ER 900 MG PO ×2 (10:15→20:08)
[2024-05-20] MEDS: Acetaminophen 325 MG TABLET 975 MG PO (10:37)
[2024-05-20] MEDS: hydrOXYzine HCL 25 MG TABLET PO (17:20)
[2024-05-20] MEDS: Nicotine Polacrilex 2 MG GUM 4 MG BUCCAL (19:18)
[2024-05-20 20:00] VITALS: BP 150/111; PULSE 116; RESP 98; TEMP 36.3; O2SAT 98
[2024-05-20] MEDS: OLANZapine 10 MG TABLET PO (20:08)
[2024-05-20] MEDS: Gabapentin 100 MG CAPSULE PO (20:08)
[2024-05-20 20:43] VITALS: BP 121/80; PULSE 101
[2024-05-21 08:00] VITALS: BP 118/57; PULSE 71; RESP 16; TEMP 36.8; O2SAT 98
[2024-05-21] MEDS: Lithium Carbonate ER 450 MG TABLET.ER 900 MG PO ×2 (08:54→22:08)
--- NOTE | 2024-05-21 10:24 | P.PNPSI_ITS ---
Subjective Subjective Date of Service: 05/21/24 Reason For Visit: Schizophrenia Interim History: Patient discussed with team.Patient has been adherent to medications. He isolates in his room. He was cooperative. Today more confined to his room during the day. Calm and doesn't self dialogue but appears internally preoccupied. Visible in the milieu. Offers no concerns or complaints and denies psychiatric symptoms. Denies SI. Review of Systems Review of Systems Yes all other systems are reviewed and are negative Mental Status Exam Mental Status Exam Narrative: cooperative. nonchalant. dyed hair, large build. no PMA/PMR. speech fast, incr amount, nml loudness, decr latency. thoughts disorganized. affect constricted, normo-intense, non-labile. mood pretty good. denies SI/SIBI/HI/AVH. Diagnostics Vital Signs (24Hr): Vital Signs - 24 hr 05/20/24 20:00 05/20/24 20:43 05/21/24 08:00 Temperature 97.3 F 98.3 F Pulse Rate 116 H 101 H 71 Respiratory Rate 98 H 16 Blood Pressure 150/111 H 121/80 118/57 L Pulse Oximetry 98 98 Oxygen Delivery Method Room Air Room Air BMI result Body Mass Index 36.8 Labs 05/17/24 18:22 05/19/24 20:52 Labs: Laboratory Results - last 48 hr 05/19/24 05/19/24 11:48 20:52 Sodium 141 Potassium 3.7 Chloride 107 Carbon Dioxide 24 Anion Gap 14 BUN 11 Creatinine 1.00 Estim Creat Clear Calc 152.9 Estimated GFR > 60 Random Glucose 111 Calcium 10.7 H D Urine Color Yellow Urine Appearance Clear Urine pH 8.5 Ur Specific [place] 1.020 Urine Protein Trace Urine Glucose (UA) Negative Urine Ketones Trace Urine Blood Negative Urine Nitrite Negative Ur Leukocyte Esterase Negative Urine Opiates Screen Not Detected Ur Buprenorphine Scrn Not Detected Ur Oxycodone Screen Not Detected Urine Methadone Screen Not Detected Urine Fentanyl Screen Not Detected Ur Barbiturates Screen Not Detected Ur Phencyclidine Scrn Not Detected Ur Amphetamines Screen Not Detected U Benzodiazepines Scrn Not Detected [place] 0.52 L Urine Cocaine Screen Not Detected U Marijuana (THC) Screen POSITIVE H Medications Medications Current Medications Acetaminophen (Acetaminophen 325 Mg Tablet) 975 mg PO Q6H PRN PRN Reason: Pain, Moderate(Pain Scale 4-6) Last Admin: 05/20/24 10:37 Dose: 975 mg Al Hydroxide/Mg Hydroxide (Magnesium Hydrox/Alum Hydrox 30 Ml Oral.Susp) 30 ml PO Q6H PRN PRN Reason: Heartburn/Nausea Diphenhydramine HCl (Diphenhydramine Hcl 25 Mg Capsule) 25 mg PO BEDTIME PRN PRN Reason: insomnia Gabapentin (Gabapentin 100 Mg Capsule) 100 mg PO BEDTIME MIRELLA Last Admin: 05/20/24 20:08 Dose: 100 mg Hydroxyzine HCl (Hydroxyzine Hcl 25 Mg Tablet) 25 mg PO Q6H PRN PRN Reason: Anxiety Last Admin: 05/20/24 17:20 Dose: 25 mg [place] Carbonate ([place] Carbonate Er 450 Mg Tablet.Er) 900 mg PO BID MIRELLA Last Admin: 05/21/24 08:54 Dose: 900 mg Magnesium Hydroxide (Milk Of Magnesia 30 Ml Oral.Susp) 30 ml PO DAILY PRN PRN Reason: Constipation Nicotine (Nicotine 21 Mg Patch.Td24) 21 mg TRANSDERMA DAILY PRN PRN Reason: nicotine cravings Nicotine Polacrilex (Nicotine Polacrilex 2 Mg Gum) 4 mg BUCCAL Q2H PRN PRN Reason: Nicotine Cravings Last Admin: 05/20/24 19:18 Dose: 4 mg Olanzapine (Olanzapine 10 Mg Tablet) 10 mg PO BEDTIME MIRELLA Last Admin: 05/20/24 20:08 Dose: 10 mg Trazodone HCl (Trazodone Hcl 50 Mg Tablet) 50 mg PO BEDTIME MRX1 PRN PRN Reason: Insomnia Allergies Allergies Allergy/AdvReac Type Severity Reaction Status Date / Time No Known Allergies Allergy Verified 05/17/24 17:54 Assessment & Plan Assessment & Plan (1) Chronic schizophrenia: Status: Acute Code(s): F20.9 - Schizophrenia, unspecified Plan restart/continue home medications regimen 05/20: continue current management and treatment plan. 05/21: continue current management and treatment plan. Reason for continued inpatient stay Substantial Risk for: inability to function and rapid decompensation Time Spent With Patient Time: Total time managing care of this patient today ____ minutes.
[2024-05-21] MEDS: Nicotine Polacrilex 2 MG GUM 4 MG BUCCAL (18:18)
[2024-05-21 20:00] VITALS: BP 154/93; PULSE 108; RESP 16; TEMP 37.2; O2SAT 98
[2024-05-21] MEDS: OLANZapine 10 MG TABLET PO (22:08)
[2024-05-21] MEDS: hydrOXYzine HCL 25 MG TABLET PO (22:08)
[2024-05-21] MEDS: Acetaminophen 325 MG TABLET 975 MG PO (22:09)
[2024-05-21] MEDS: Gabapentin 100 MG CAPSULE PO (22:09)
[2024-05-22 08:00] VITALS: BP 97/60; PULSE 60; RESP 18; TEMP 36.7; O2SAT 97
[2024-05-22] MEDS: Lithium Carbonate ER 450 MG TABLET.ER 900 MG PO ×2 (09:36→21:32)
--- NOTE | 2024-05-22 09:37 | HO.PSYCHPN ---
Subjective Subjective Date of Service: 05/22/24 Reason For Visit: Schizophrenia Interim History: Met with patient; discussed with team; reviewed chart Patient has been mostly sitting quietly in the milieu, keeping to himself, listening to headphones, talking to himself. Has remained in good behavioral and impulse control and taking medications. Patient is on a 12 B. Electronics Detail Draftsperson discussed why he came here and he said he got into an argument with his father. He does not want to stay any longer and wants to return home. Says he will keep taking his meds. Patient is able to answer a number of questions in a linear way however he then becomes tangential and disorganized in the things he saying that do not make sense. He kept rambling about topics relating to his body and building a Subaru... His hair... None of it making sense. He also referred to getting an IM injection in the ED which he did not like. Patient says it is fine to call his father to confirm that he can return there. Patient reports sleeping and staff concurs. Mental Status Exam Mental Status Exam Narrative: Pt is alert and oriented; behavior is calmly sitting in the milieu keeping to himself, listening to headphones, talking to himself; cooperative on approach; patient is not in distress; dressed in hospital attire with unkempt hair; mood is described as good and affect congruent; eye contact appropriate; Speech is starts off with normal rate, prosody and volume however starts to become pressured; no psychomotor agitation/retardation present; thought process can be goal oriented and linear when talking about find a topics but becomes rambling and disorganized otherwise; however he is able to be interrupted and redirectable. Thought content is on discharge home and on various nonsensical things; denies any SI/HI. Internally preoccupied. Patients insight and judgment impaired but improved. Diagnostics Vital Signs (24Hr): Vital Signs - 24 hr 05/21/24 20:00 05/22/24 08:00 Temperature 98.9 F 98.1 F Pulse Rate 108 H 60 Respiratory Rate 16 18 Blood Pressure 154/93 H 97/60 Pulse Oximetry 98 97 Oxygen Delivery Method Room Air Room Air BMI result Body Mass Index 36.8 Labs 05/17/24 18:22 05/23/24 07:44 Medications Medications Current Medications Acetaminophen (Acetaminophen 325 Mg Tablet) 975 mg PO Q6H PRN PRN Reason: Pain, Moderate(Pain Scale 4-6) Last Admin: 05/21/24 22:09 Dose: 975 mg Al Hydroxide/Mg Hydroxide (Magnesium Hydrox/Alum Hydrox 30 Ml Oral.Susp) 30 ml PO Q6H PRN PRN Reason: Heartburn/Nausea Diphenhydramine HCl (Diphenhydramine Hcl 25 Mg Capsule) 25 mg PO BEDTIME PRN PRN Reason: insomnia Gabapentin (Gabapentin 100 Mg Capsule) 100 mg PO BEDTIME [facility] Last Admin: 05/21/24 22:09 Dose: 100 mg Hydroxyzine HCl (Hydroxyzine Hcl 25 Mg Tablet) 25 mg PO Q6H PRN PRN Reason: Anxiety Last Admin: 05/21/24 22:08 Dose: 25 mg [place] Carbonate ([place] Carbonate Er 450 Mg Tablet.Er) 900 mg PO BID [facility] Last Admin: 05/22/24 09:36 Dose: 900 mg Magnesium Hydroxide (Milk Of Magnesia 30 Ml Oral.Susp) 30 ml PO DAILY PRN PRN Reason: Constipation Nicotine (Nicotine 21 Mg Patch.Td24) 21 mg TRANSDERMA DAILY PRN PRN Reason: nicotine cravings Nicotine Polacrilex (Nicotine Polacrilex 2 Mg Gum) 4 mg [place] Q2H PRN PRN Reason: Nicotine Cravings Last Admin: 05/21/24 18:18 Dose: 4 mg Olanzapine (Olanzapine 10 Mg Tablet) 10 mg PO BEDTIME [facility] Last Admin: 05/21/24 22:08 Dose: 10 mg Trazodone HCl (Trazodone Hcl 50 Mg Tablet) 50 mg PO BEDTIME MRX1 PRN PRN Reason: Insomnia Allergies Allergies Allergy/AdvReac Type Severity Reaction Status Date / Time No Known Allergies Allergy Verified 05/17/24 17:54 Assessment & Plan Assessment & Plan (1) Chronic schizophrenia: Status: Acute Code(s): F20.9 - Schizophrenia, unspecified Plan HPI: Patient is a 23-year-old male who carries a diagnosis of schizophrenia, who presents to the hospital via ambulance after [facility] assessed him in the community for disorganized thoughts and neglecting ADLs. In the ED patient demonstrated mood lability and irritability towards staff; he got triggered and when security was restraining another peer, patient attempted to intervene and himself was restrained and given IM medication. Hospital course: on admission and interview with MD pt was pressured and disorganized, largely unable to provide history. he denied Sx and indicated he was willing to take medications as prescribed. he had no cogent requests or complaints. Patient was restarted on home medications of lithium and Zyprexa which he tolerated well. Patient sleeping at night. Patient seen in dining room. He was cooperative. Social. Visible in the milieu. Offers no concerns or complaints and denies psychiatric symptoms. He took his medications later in the morning. He made psychotic remarks about his medications being administered through an invisible device on his hand. Denies SI. Patient has been adherent to medications. He isolates in his room. He was cooperative. Today more confined to his room during the day. Calm and doesn't self dialogue but appears internally preoccupied. Visible in the milieu. Offers no concerns or complaints and denies psychiatric symptoms. Denies SI. 05/22 Patient has been mostly sitting quietly in the milieu, keeping to himself, listening to headphones, talking to himself. Has remained in good behavioral and impulse control and taking medications. Patient is on a 12 B. Electronics Detail Draftsperson discussed why he came here and he said he got into an argument with his father. He does not want to stay any longer and wants to return home. Says he will keep taking his meds. Patient is able to answer a number of questions in a linear way however he then becomes tangential and disorganized in the things he saying that do not make sense. He kept rambling about topics relating to his body and building a Subaru... His hair... None of it making sense. He also referred to getting an IM injection in the ED which he did not like. Patient says it is fine to call his father to confirm that he can return there. Patient reports sleeping and staff concurs. restart/continue home medications regimen Plan: Twelve B Q 15 minute checks Continue lithium 900 mg b.i.d. Will get labs Continue Zyprexa 10 mg q.h.s. Need collateral Patient educated on: diagnosis and medication risk/benefits Informed Consent: understands, does not understand and further education needed Reason for continued inpatient stay Substantial Risk for: rapid decompensation Time Spent With Patient Time: Total time managing care of this patient today ____ minutes.
[2024-05-22] MEDS: Nicotine Polacrilex 2 MG GUM 4 MG BUCCAL (18:56)
[2024-05-22 20:00] VITALS: BP 117/85; PULSE 122; RESP 16; TEMP 36.8; O2SAT 98
[2024-05-22] MEDS: Gabapentin 100 MG CAPSULE PO (21:32)
[2024-05-22] MEDS: OLANZapine 10 MG TABLET PO (21:32)
[2024-05-22] MEDS: hydrOXYzine HCL 25 MG TABLET PO (21:32)
[2024-05-23 08:24] LABS: Lithium 0.81 mmol/L (0.60-1.20)
[2024-05-23 08:35] LABS: Blood Urea Nitrogen 12 mg/dL (9-16); Creatinine Clr Calc Pharmacy 149.9; Estimated Glomerular Filt Rate > 60
[2024-05-23 08:53] LABS: TSH reflex Free T4 0.88 uIU/mL (0.32-4.0)
[2024-05-23] MEDS: Lithium Carbonate ER 450 MG TABLET.ER 900 MG PO ×2 (08:58→21:08)
[2024-05-23 09:06] VITALS: BP 110/65; PULSE 79; RESP 16; TEMP 36.7; O2SAT 99
--- NOTE | 2024-05-23 09:37 | P.PNPSI_ITS ---
Subjective Subjective Date of Service: 05/23/24 Reason For Visit: Schizophrenia Interim History: Met with patient; discussed with team Patient remains calm, cooperative, sitting in the milieu with others but mostly keeping to himself. Appropriate with peers and staff on approach and in behavioral and impulse control. Patient more linear today and did not descend into tangential rambles. He says he would like to go home and had a meeting with his father which he said went well. Patient remains eager to discharge tomorrow. Principal Biostatistician discussed case with his father with whom he lives. Patient's father says that he seems to be much improved and can discharge and come home. His father reports that the reason he called for assessment in the community was because patient was not only talking nonsense but getting very loud and it seemed that something was wrong; he denies that patient was ever aggressive or threatening however. He agrees that patient is still talking nonsensically at times but says that is okay as long as he is back on his medications. Discussed long-acting injectable however that is not an option with olanzapine. Mental Status Exam Mental Status Exam Narrative: Pt is alert and oriented; behavior is calmly sitting in the milieu keeping to himself, listening to headphones, talking to himself; cooperative on approach; patient is not in distress; dressed in hospital attire with unkempt hair; mood is described as good and affect congruent; eye contact appropriate; Speech is starts off with normal rate, prosody and volume however starts to become pressured; no psychomotor agitation/retardation present; thought process can be goal oriented and linear when talking about finite topics; it can become rambling and disorganized but less so and he is able to be interrupted and redirectable. Thought content is on discharge home; intermittently shares thoughts on various nonsensical things; denies any SI/HI. Internally preoccupied. Patients insight and judgment impaired but improved, likely at baseline and adequate. Diagnostics Vital Signs (24Hr): Vital Signs - 24 hr 05/22/24 20:00 05/23/24 09:06 Temperature 98.2 F 98.1 F Pulse Rate 122 H 79 Respiratory Rate 16 16 Blood Pressure 117/85 110/65 Pulse Oximetry 98 99 Oxygen Delivery Method Room Air Room Air BMI result Body Mass Index 36.8 Labs 05/17/24 18:22 05/23/24 07:44 Labs: Laboratory Results - last 48 hr 05/23/24 07:44 BUN 12 Creatinine 1.02 Estim Creat Clear Calc 149.9 Estimated GFR > 60 TSH 0.88 [place] 0.81 Medications Medications Current Medications Acetaminophen (Acetaminophen 325 Mg Tablet) 975 mg PO Q6H PRN PRN Reason: Pain, Moderate(Pain Scale 4-6) Last Admin: 05/21/24 22:09 Dose: 975 mg Al Hydroxide/Mg Hydroxide (Magnesium Hydrox/Alum Hydrox 30 Ml Oral.Susp) 30 ml PO Q6H PRN PRN Reason: Heartburn/Nausea Diphenhydramine HCl (Diphenhydramine Hcl 25 Mg Capsule) 25 mg PO BEDTIME PRN PRN Reason: insomnia Gabapentin (Gabapentin 100 Mg Capsule) 100 mg PO BEDTIME MIRELLA Last Admin: 05/22/24 21:32 Dose: 100 mg Hydroxyzine HCl (Hydroxyzine Hcl 25 Mg Tablet) 25 mg PO Q6H PRN PRN Reason: Anxiety Last Admin: 05/22/24 21:32 Dose: 25 mg [place] Carbonate ([place] Carbonate Er 450 Mg Tablet.Er) 900 mg PO BID MIRELLA Last Admin: 05/23/24 08:58 Dose: 900 mg Magn[place] Hydroxide (Milk Of Magnesia 30 Ml Oral.Susp) 30 ml PO DAILY PRN PRN Reason: Constipation Nicotine (Nicotine 21 Mg Patch.Td24) 21 mg TRANSDERMA DAILY PRN PRN Reason: nicotine cravings Nicotine Polacrilex (Nicotine Polacrilex 2 Mg Gum) 4 mg [place] Q2H PRN PRN Reason: Nicotine Cravings Last Admin: 05/22/24 18:56 Dose: 4 mg Olanzapine (Olanzapine 10 Mg Tablet) 10 mg PO BEDTIME MIRELLA Last Admin: 05/22/24 21:32 Dose: 10 mg Trazodone HCl (Trazodone Hcl 50 Mg Tablet) 50 mg PO BEDTIME MRX1 PRN PRN Reason: Insomnia Allergies Allergies Allergy/AdvReac Type Severity Reaction Status Date / Time No Known Allergies Allergy Verified 05/17/24 17:54 Assessment & Plan Assessment & Plan (1) Chronic schizophrenia: Status: Acute Code(s): F20.9 - Schizophrenia, unspecified Plan HPI: Patient is a 23-year-old male who carries a diagnosis of schizophrenia, who presents to the hospital via ambulance after [facility] assessed him in the community for disorganized thoughts and neglecting ADLs. In the ED patient demonstrated mood lability and irritability towards staff; he got triggered and when security was restraining another peer, patient attempted to intervene and himself was restrained and given IM medication. Hospital course: on admission and interview with MD milton was pressured and disorganized, largely unable to provide history. he denied Sx and indicated he was willing to take medications as prescribed. he had no cogent requests or complaints. Patient was restarted on home medications of lithium and Zyprexa which he tolerated well. Patient sleeping at night. Patient seen in dining room. He was cooperative. Social. Visible in the milieu. Offers no concerns or complaints and denies psychiatric symptoms. He took his medications later in the morning. He made psychotic remarks about his medications being administered through an invisible device on his hand. Denies SI. Patient has been adherent to medications. He isolates in his room. He was cooperative. Today more confined to his room during the day. Calm and doesn't self dialogue but appears internally preoccupied. Visible in the milieu. Offers no concerns or complaints and denies psychiatric symptoms. Denies SI. 05/22 Patient has been mostly sitting quietly in the milieu, keeping to himself, listening to headphones, talking to himself. Has remained in good behavioral and impulse control and taking medications. Patient is on a 12 B. Principal Biostatistician discussed why he came here and he said he got into an argument with his father. He does not want to stay any longer and wants to return home. Says he will keep taking his meds. Patient is able to answer a number of questions in a linear way however he then becomes tangential and disorganized in the things he saying that do not make sense. He kept rambling about topics relating to his body and building a Subaru... His hair... None of it making sense. He also referred to getting an IM injection in the ED which he did not like. Patient says it is fine to call his father to confirm that he can return there. Patient reports sleeping and staff concurs. restart/continue home medications regimen 05/23 Patient remains calm, cooperative, sitting in the milieu with others but mostly keeping to himself. Appropriate with peers and staff on approach and in behavioral and impulse control. Patient more linear today and did not descend into tangential rambles. He says he would like to go home and had a meeting with his father which he said went well. Patient remains eager to discharge tomorrow. Patient's father came to the unit and visited with his son. Principal Biostatistician discussed case with his father with whom he lives. Patient's father says that he seems to be much improved and can discharge and come home. His father reports that the reason he called for assessment in the community was because patient was not only talking nonsense but getting very loud and it seemed that something was wrong; he denies that patient was ever aggressive or threatening however. He agrees that patient is still talking nonsensically at times but says that is okay as long as he is back on his medications. Discussed long- acting injectable however that is not an option with olanzapine. Impression: Patient's 12b is coming due and he wants to discharge home. And his father met with patient on the unit and with whom he lives, agrees he's ready to return home. Patient has chronic schizophrenia (with rule out for schizoaffective bipolar type). Whatever happened in the community, seems to have down and his father feels that patient is close enough back to his baseline. Patient is taking medications that seem to be effective, sleeping and eating well and eager to return home. He is on a Section 12b. Principal Biostatistician can not testify that patient is an imminent risk to himself or others. Although patient was aggressive when he 1st came to the emergency room, since getting back on his medications he has remained in good behavioral and impulse control and appropriate with peers and staff; he has consistently denied any self-harm and collateral corroborates that in the community he has not demonstrated any dangerousnes towards himself or others. Patient has been eating and drinking normally on the unit and is returning to his supportive parents with whom he lives and feel he is ready to come home. Patient says he will continue taking his medications. Patient still has some psychotic symptoms and impaired insight. And Given his history, it is likely that at some point he will again stop taking his medications and will decompensate; however this is a chronic issue that will not resolve with longer stay on the unit. Patient does not rise to the level of involuntary commitment. He is not in imminent risk for harm to self or others and request for discharge honored. Plan: Twelve B Q 15 minute checks Continue lithium 900 mg b.i.d. [place] level therapeutic; associated labs WNL Continue Zyprexa 10 mg q.h.s. Patient educated on: diagnosis and medication risk/benefits Informed Consent: understands, does not understand and further education needed Reason for continued inpatient stay Substantial Risk for: stable for discharge Time Spent With Patient Time: Total time managing care of this patient today ____ minutes.
[2024-05-23 20:00] VITALS: BP 149/84; PULSE 110; RESP 16; TEMP 36.7; O2SAT 96
[2024-05-23] MEDS: OLANZapine 10 MG TABLET PO (21:08)
[2024-05-23] MEDS: Gabapentin 100 MG CAPSULE PO (21:08)
[2024-05-23] MEDS: Acetaminophen 325 MG TABLET 975 MG PO (21:12)
[2024-05-24 08:00] VITALS: BP 128/82; PULSE 70; TEMP 36.2
[2024-05-24] MEDS: Lithium Carbonate ER 450 MG TABLET.ER 900 MG PO (08:44)
--- NOTE | 2024-05-24 10:52 | P.DS_ITS ---
DS: Providers Provider Date of Service: 05/24/24 Date of admission: 05/19/24 12:11 Date of discharge: 05/24/24 Primary care physician: [facility] Attending physician on admission: Jaun Zapata Attending physician on discharge: Sen Pittman DS: Diagnosis Discharge Diagnosis (1) Chronic schizophrenia: Status: Acute DS: Medications Discharge Medications Home Medications: Previous Rx's ?Medication ?Instructions ?Recorded gabapentin 100 mg capsule 100 mg PO BEDTIME 30 days #30 caps 05/24/24 hydroxyzine HCl 25 mg tablet 25 mg PO Q6H PRN Anxiety/insomnia 05/24/24 30 days #90 tabs lithium carbonate 450 mg 900 mg (2 x 450 mg) PO BID 30 days 05/24/24 tablet,extended release #120 tabs nicotine (polacrilex) 4 mg gum 4 mg buccal Q2H 30 days #100 ea 05/24/24 olanzapine 10 mg tablet 10 mg PO BEDTIME 30 days #30 tabs 05/24/24 olanzapine 5 mg tablet (Zyprexa) 5 mg PO DAILY PRN 05/24/24 anger/loudness/agitation 30 days #30 tabs Mental Status Exam Mental Status Exam Narrative: Pt is alert and oriented; behavior is calm, cooperative; intermittently talking to himself; cooperative on approach; patient is not in distress; dressed in casual attire with unkempt hair; mood is described as good and affect con gruent; eye contact appropriate; Speech is starts off with normal rate, prosody and volume however starts to become pressured; no psychomotor agitation/retardation present; thought process can be goal oriented and linear when talking about finite topics; it can become rambling and disorganized but less so and he is able to be interrupted and redirectable. Thought content is on discharge home; intermittently shares thoughts on various nonsensical things; denies any SI/HI. Internally preoccupied. Patients insight and judgment impaired but improved, likely at baseline and adequate. Data Data Completed and Pending Completed studies during hospitalization [Text1]: 05/17/24 05/19/24 05/19/24 18:22 11:48 20:52 WBC 12.6 H RBC 4.80 Hgb 14.5 Hct 42.2 MCV 87.9 MCH 30.2 MCHC 34.4 RDW 13.4 Plt Count 305 MPV 9.4 Immature Gran % (Auto) 0.6 H Neut % (Auto) 72.9 Lymph % (Auto) 17.7 L [place] % (Auto) 6.5 Eos % (Auto) 1.8 Baso % (Auto) 0.5 Lymph # (Auto) 2.2 Gibson # (Auto) 0.8 Eos # (Auto) 0.2 Baso # (Auto) 0.1 Abs Immat Gran (auto) 0.07 H Absolute Neuts (auto) 9.2 H Absolute Nucleated RBC 0.000 Nucleated RBC % (auto) 0.0 Sodium 140 141 Potassium 3.6 3.7 Chloride 105 107 Carbon Dioxide 24 24 Anion Gap 15 14 BUN 13 11 Creatinine 1.06 1.00 Estim Creat Clear Calc 145.3 152.9 Estimated GFR > 60 > 60 Random Glucose 93 111 Calcium 9.8 10.7 H D Total Bilirubin 0.2 AST 28 ALT 43 H Alkaline Phosphatase 65 Total Protein 7.5 Albumin 4.3 TSH Urine Color Yellow Urine Appearance Clear Urine pH 8.5 Ur Specific [place] 1.020 Urine Protein Trace Urine Glucose (UA) Negative Urine Ketones Trace Urine Blood Negative Urine Nitrite Negative Ur Leukocyte Esterase Negative Urine Opiates Screen Not Detected Ur Buprenorphine Scrn Not Detected Ur Oxycodone Screen Not Detected Urine Methadone Screen Not Detected Urine Fentanyl Screen Not Detected Ur Barbiturates Screen Not Detected Ur Phencyclidine Scrn Not Detected Ur Amphetamines Screen Not Detected U Benzodiazepines Scrn Not Detected [place] 0.52 L Urine Cocaine Screen Not Detected U Marijuana (THC) Screen POSITIVE H Ethyl Alcohol < 10 05/23/24 07:44 WBC RBC Hgb Hct MCV MCH MCHC RDW Plt Count MPV Immature Gran % (Auto) Neut % (Auto) Lymph % (Auto) [place] % (Auto) Eos % (Auto) Baso % (Auto) Lymph # (Auto) [place] # (Auto) Eos # (Auto) Baso # (Auto) Abs Immat Gran (auto) Absolute Neuts (auto) Absolute Nucleated RBC Nucleated RBC % (auto) Sodium Potassium Chloride Carbon Dioxide Anion Gap BUN 12 Creatinine 1.02 Estim Creat Clear Calc 149.9 Estimated GFR > 60 Random Glucose Calcium Total Bilirubin AST ALT Alkaline Phosphatase Total Protein Albumin TSH 0.88 Urine Color Urine Appearance Urine pH Ur Specific [place] Urine Protein Urine Glucose (UA) Urine Ketones Urine Blood Urine Nitrite Ur Leukocyte Esterase Urine Opiates Screen Ur Buprenorphine Scrn Ur Oxycodone Screen Urine Methadone Screen Urine Fentanyl Screen Ur Barbiturates Screen Ur Phencyclidine Scrn Ur Amphetamines Screen U Benzodiazepines Scrn [place] 0.81 Urine Cocaine Screen U Marijuana (THC) Screen Ethyl Alcohol DS: Summary Hospital Course Hospital Course: HPI: Patient is a 23-year-old male who carries a diagnosis of schizophrenia, who presents to the hospital via ambulance after [facility] assessed him in the community for disorganized thoughts and neglecting ADLs. In the ED patient demonstrated mood lability and irritability towards staff; he got triggered and when security was restraining another peer, patient attempted to intervene and himself was restrained and given IM medication. Hospital course: on admission and interview with pt was pressured and disorganized, largely unable to provide history. he denied Sx and indicated he was willing to take medications as prescribed. he had no cogent requests or complaints. Patient was restarted on home medications of lithium and Zyprexa which he tolerated well. Patient sleeping at night. Patient seen in dining room. He was cooperative. Social. Visible in the milieu. Offers no concerns or complaints and denies psychiatric symptoms. He took his medications later in the morning. He made psychotic remarks about his medications being administered through an invisible device on his hand. Denies SI. Patient has been adherent to medications. He isolates in his room. He was cooperative. Today more confined to his room during the day. Calm and doesn't self dialogue but appears internally preoccupied. Visible in the milieu. Offers no concerns or complaints and denies psychiatric symptoms. Denies SI. 05/22 Patient has been mostly sitting quietly in the milieu, keeping to himself, listening to headphones, talking to himself. Has remained in good behavioral and impulse control and taking medications. Patient is on a 12 B. Video Game Script Writer discussed why he came here and he said he got into an argument with his father. He does not want to stay any longer and wants to return home. Says he will keep taking his meds. Patient is able to answer a number of questions in a linear way however he then becomes tangential and disorganized in the things he saying that do not make sense. He kept rambling about topics relating to his body and building a Subaru... His hair... None of it making sense. He also referred to getting an IM injection in the ED which he did not like. Patient says it is fine to call his father to confirm that he can return there. Patient reports sleeping and staff concurs. restart/continue home medications regimen 05/23 Patient remains calm, cooperative, sitting in the milieu with others but mostly keeping to himself. Appropriate with peers and staff on approach and in behavioral and impulse control. Patient more linear today and did not descend into tangential rambles. He says he would like to go home and had a meeting with his father which he said went well. Patient remains eager to discharge tomorrow. Patient's father came to the unit and visited with his son. Video Game Script Writer discussed case with his father with whom he lives. Patient's father says that he seems to be much improved and can discharge and come home. His father reports that the reason he called for assessment in the community was because patient was not only talking nonsense but getting very loud and it seemed that something was wrong; he denies that patient was ever aggressive or threatening however. He agrees that patient is still talking nonsensically at times but says that is okay as long as he is back on his medications. Discussed long- acting injectable however that is not an option with olanzapine. Impression: Patient's 12b is coming due and he wants to discharge home. And his father met with patient on the unit and with whom he lives, agrees he's ready to return home. Patient has chronic schizophrenia (with rule out for schizoaffective bipolar type). Whatever happened in the community, seems to have down and his father feels that patient is close enough back to his baseline. Patient is taking medications that seem to be effective, sleeping and eating well and eager to return home. He is on a Section 12b. Video Game Script Writer can not testify that patient is an imminent risk to himself or others. Although patient was aggressive when he 1st came to the emergency room, since getting back on his medications he has remained in good behavioral and impulse control and appropriate with peers and staff; he has consistently denied any self-harm and collateral corroborates that in the community he has not demonstrated any dangerousnes towards himself or others. Patient has been eating and drinking normally on the unit and is returning to his supportive parents with whom he lives and feel he is ready to come home. Patient says he will continue taking his medications. Patient still has some psychotic symptoms and impaired insight. And Given his history, it is likely that at some point he will again stop taking his medications and will decompensate; however this is a chronic issue that will not resolve with longer stay on the unit. Patient does not rise to the level of involuntary commitment. He is not in imminent risk for harm to self or others and request for discharge honored. Time spent discussing smoking cessation with patient: 3 to 10 minutes Status at Discharge Functional status at discharge: independent ambulation Overall status at discharge: patient is progressing back to baseline Time Spent with Patient Time attestation: Total time managing care of this patient today _35___ minutes. Time spent: Greater than 30 minutes Discharge Plan Discharge Anticipated Discharge Date/Time: 05/24/24 11:30 Patient Disposition: Home, Self-Care Discharge Diagnosis: Schizophrenia (r/o schizoaffective bipolar type) Referrals: [facility] [employer] ([facility] [place]) therapy [Other] - 06/02/24 1:00 pm (Hospital discharge appointment. Initial evaluation for therapy services Appointment will be in person at [facility]) [facility] [employer] ([facility] [place]): Psychiatry [Other] - 06/26/24 12:40 pm (Hospital discharge appointment. Initial evaluation for psychiatric medication management.) [facility] [Primary Care Provider] - 1 Week (No release signed Please follow up with PCP to schedule an appointment. ) Discharge Medications: New nicotine (polacrilex) 4 mg gum 4 mg buccal Q2H 30 Days Qty: 100 0RF hydroxyzine HCl 25 mg Tablet 25 mg PO Q6H PRN (Reason: Anxiety/insomnia) 30 Days Qty: 90 1RF olanzapine [Zyprexa] 5 mg tablet 5 mg PO DAILY PRN (Reason: anger/loudness/agitation) 30 Days Qty: 30 1RF Continued olanzapine 10 mg Tablet 10 mg PO BEDTIME 30 Days Qty: 30 1RF lithium carbonate 450 mg Tablet Extended Release 900 mg PO BID 30 Days Qty: 120 1RF gabapentin 100 mg Capsule 100 mg PO BEDTIME 30 Days Qty: 30 1RF Discontinued diphenhydramine HCl [Banophen] 25 mg capsule 25 mg PO BEDTIME PRN (Reason: insomnia) Discharge Orders: Discharge Order (Routine); Ordered 05/24/24 Ordered By: Sen Pittman Diet: Regular diet Activity on Discharge: As tolerated Stand Alone Forms: Patient Portal Discharge page, Community Support Print Language: Divehi Care Plan Goals: Maintain mood and safe behaviors Take medications as prescribed Continue to pursue sobriety from Cannabis Practice coping skills Continue with outpatient providers and reach out to them as needed Health Concerns: Mood stability and behaviors Plan of Treatment: Follow up with your PCP, psychiatric provider and other outpatient providers regarding above concerns Take medications as prescribed Assessment: Risk assessment at time of discharge:? Patient was interviewed prior to discharge and found to be fully oriented and without any SI or HI. Patient has improved insight and judgment and wants to continue treatment. Patient is not in imminent risk of harm to self or others and has a safety plan that includes presenting to the closest ER or calling 911 if feeling unsafe.? Patient has been observed closely by nursing and unit staff throughout admission; patient has not engaged in any behaviors that suggest dangerousness to self or others and has demonstrated appropriate behaviors and impulse control
== END 2024-05-24 11:58 | disposition home or self-care (01) | DRG 750 ==
LOC: HO.ED 05-18 01:49 → HO.PM5 05-19 12:17
PROVIDERS: Nurse Practitioner Family; Psychiatry & Neurology Psychiatry; Admitting Provider Clinical Nurse Specialist Psychiatric/Mental Health, Adult; Emergency Provider Student in an Organized Health Care Education/Training Program; Visit Provider Psychiatry & Neurology Psychiatry
DX: F20.9 Schizophrenia, unspecified (principal); Z91.148 Patient's other noncompliance with medication regimen for other reason; Z79.899 Other long term (current) drug therapy
CPT/HCPCS: 36415; 80048; 80053; 80178; 80307; 81003; 82565; 84443; 84520; 85025; 93005; 99285; J1200; J1630; J2060; S9485

== ENCOUNTER → 2024-05-18 15:55 | Outpatient (BNV) | payer MEDICAID, SELFPAY | PROVIDERS: Emergency Provider Student in an Organized Health Care Education/Training Program; Visit Provider Internal Medicine Cardiovascular Disease | DX: F20.9 Schizophrenia, unspecified (principal) | CPT/HCPCS: 93010 ==

== ENCOUNTER → 2024-05-19 12:11 | Outpatient (BNV) | payer OTHER, SELFPAY | PROVIDERS: Admitting Provider Clinical Nurse Specialist Psychiatric/Mental Health, Adult; Emergency Provider Student in an Organized Health Care Education/Training Program; Visit Provider Psychiatry & Neurology Psychiatry | DX: F20.1 Disorganized schizophrenia (principal) | CPT/HCPCS: 99231; 99232; 99233 ==

== ENCOUNTER 2024-12-05 13:30 | Inpatient (IN) | payer MEDICARE, MEDICAID, SELFPAY ==
--- NOTE | 2024-12-05 13:41 | ED.PSYCH ---
HPI - Psych General Chief Complaint: Psychiatric Symptoms Stated Complaint: Sectioned by [facility], non med compliant, agitated Time Seen by Provider: 12/05/24 13:41 Source: EMS Mode of arrival: EMS History of Present Illness HPI Narrative: This is a 24 years old the patient with a history of schizophrenia presented to the emergency department and Section 12 agitated screaming. complaint: other (agitated) Onset (ago): hour(s) (1) Duration: constant Relieving factors: none Exacerbating factors: none Treatments prior to arrival: none Related Data Home Medications ?Medication ?Instructions ?Recorded ?Confirmed lithium carbonate 300 mg capsule 300 mg PO BEDTIME 12/05/24 12/05/24 Allergies Allergy/AdvReac Type Severity Reaction Status Date / Time No Known Allergies Allergy Verified 12/05/24 14:02 Review of Systems Review of Systems: Yes Unobtainable due to mental condition PMFSH Past Medical History Medical History Chronic schizophrenia Social History Social History Household Members: Family Household Members Other:: 2 Housing: Apartment Do you presently have visiting nurse or other home services: No Unable to assess alcohol history related to: Refusing to respond Alcohol intake: never Patient Tobacco Use Status: Refuse Tobacco use screen Tobacco use type: Cigarette Cigarette Packs Per Day: 0 Cigarettes Per Day: 3 e-Cigarette/Vaping Use: Never Used Second Hand Smoke Exposure: No Use of substances other than those prescribed or required for medical reasons: Refusing to respond Substance Use Type: Marijuana Advance Directives: No Advance Directives Information Provided: No service: No Sexual orientation: Straight/Heterosexual Physical Exam Vital Signs: Vital Signs: Last Vital Signs Resp 18 12/05/24 14:03 BMI result Body Mass Index 35.3 He is awake alert moved all the extremity Const: General: well developed, alert, awake and Physically active Nutritional Appearance: well nourished HEENT: Other: No signs of trauma General nose exam: Normal external nose present Face and sinus: Yes normal facial exam Neck: Neck: Yes normal visual inspection Resp: Effort & Inspection: normal respiratory effort and able to speak in complete sentences Cardio: Rate: regular rate GI: Inspection: Yes normal to inspection Skin: General skin exam: no rashes or lesions noted Course Reevaluation(s) Reevaluation #1: Patient was given IM Zyprexa 10 mg and IM lorazepam 2 mg because agitation Time: 13:45 Reevaluation #2: Calm and cooperative now waiting for crisis eval Reevaluation #3: Off shift now pt will be signed out to the incoming provider Time: 16:28 Medications Administered Discontinued Medications Generic Name Dose Route Start Last Admin Trade Name Freq PRN Reason Stop Dose Admin Lorazepam 2 mg 12/05/24 13:36 12/05/24 13:46 Lorazepam 2 Mg/Ml Vial IM 12/05/24 13:37 2 mg ONCE ONE Administration Olanzapine 10 mg 12/05/24 13:35 12/05/24 13:46 Olanzapine 10 Mg Vial IM 12/05/24 13:36 10 mg ONCE ONE Administration Critical Care Time Critical Care Time Critical Care Time: Yes Total Critical Care Time: 60 Attestation: pt required IM mediction 10 mg Zyprexa and 2 mg IM lorazepam Discharge Plan Discharge Clinical Impression: Agitation, Chronic schizophrenia Patient Disposition: Still a Patient Prescriptions: No Action lithium carbonate 300 mg capsule 300 mg PO BEDTIME Interventions: [place]-Suicide Risk Severity Scale Last Done: 12/05/24 14:04 Print Language: Luxembourgish
[2024-12-05] MEDS: OLANZapine 10 MG VIAL IM (13:46)
[2024-12-05] MEDS: LORazepam 2 MG/ML VIAL IM (13:46)
[2024-12-05 14:00] VITALS: RESP 16; BMI 35.3
[2024-12-05 14:03] VITALS: RESP 18
--- NOTE | 2024-12-05 14:07 | PC.NURSE ---
Per RN covering this RNs break, patient came in via EMS with PD, angry on a S12. Pt was pacing around the BH pod, intruding other's personal space, requiring redirection. per RN, patient received IM Ativan and IM Zyprexa willingly, no physical hold required
--- NOTE | 2024-12-05 14:53 | PC.NURSE ---
Patient appears to be sleeping, respirations even and unlabored, no apparent distress noted
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
[2024-12-05 18:18] LABS: MANUAL DIFF FLAG NO
[2024-12-05 18:20] LABS: Basophils Absolute Auto 0.1 X10*3/uL (0.0-0.2); Basophils Percent Auto 0.5 % (0-2); Eosinophils Absolute Auto 0.3 X10*3/uL (0.0-0.4); Eosinophils Percent Auto 1.8 % (0-4); Hematocrit 38.7 % (42.0-52.0); Hemoglobin 13.1 g/dl (14.0-18.0); Imm Gran Abs Auto 0.07 X10*3/uL (0.00-0.03); Imm Gran Pct Auto 0.5 % (0.0-0.4); Lymphocytes Absolute Auto 2.8 X10*3/uL (1.2-4.9); Lymphocytes Percent Auto 19.6 % (20-40); Mean Corpuscular HGB Conc 33.9 g/dl (31.0-36.0); Mean Corpuscular Hemoglobin 29.6 pg (27.0-33.0); Mean Corpuscular Volume 87.6 fL (80.0-98.0); Monocytes Absolute Auto 0.7 X10*3/uL (0.1-1.2); Neutrophils Absolute Auto 10.4 x10*3/uL (2.0-8.3); Neutrophils Percent Auto 72.6 % (45-73); Platelet Count 318 X10*3/uL (160-400); Red Blood Count 4.42 X10*6/uL (4.60-5.80); Red Cell Distribution Width 13.8 % (11.0-16.0); White Blood Count 14.4 X10*3/uL (4.8-10.8)
--- OUTSIDE RECORDS SUMMARY | 2024-12-05 18:26 | XMS_ITS | Encounter Summary ---
Author Organization [employer] Address [address] [place] [address] [address] [place] [address] Care Team Providers Care Crematorium Operator Name Role Phone Shweta Shaffer Primary Care Provider [phone] Encounter Details Date Type Department Care Team (Latest Contact Info) Description 11/07/2024 Travel Social History Tobacco Use Types Packs/Day Years Used Date Smoking Tobacco: Every Day Cigarettes Smokeless Tobacco: Never Alcohol Use Standard Drinks/Week Comments Not Currently 0 (1 standard drink = 0.6 oz pur e alcohol) Depression Answer Date Recorded Patient Health Questionnaire-9 Score 14 11/07/2024 Patient Health Questionnaire-9 Score 14 11/07/2024 Last PHQ-9: Questionnaire Data Not on file 0 11/07/2024 Housing Stability Answer Date Recorded What is your housing situation today? I do not have housing (Staying with others, in a hotel, in a mcfp, living outside on the street, on a beach, in a car, or in a park 02/23/[address] you li ve. Do you have problems with any of the following? None of the above 02/23/2024 Food Insecurity Answer Date Recorded Within the past 12 months, y ou worried that your food would run out before you got money to buy more: Never True 02/23/2024 Within the past 12 months,th e food you bought just didn't last and you didn't have enough money to get more: Never True Transportation Answer Date Recorded In the past 12 months, has l ack of transportation kept you from medical appts, meetings, work or from getting things needed for daily living? No 02/23/2024 Utilities Answer Date Recorded In the past 12 months, has t he electric, gas, oil or water company threatened to shut off services in your home? No 08/16/2023 Depression Answer Date Recorded Patient Health Questionnaire-2 Score 3 11/07/2024 Sex and Gender Information Value Date Recorded Sex Assigned at Male 08/10/2022 10:17 AM EDT Legal Sex Male 10:17 AM EDT Gender Identity Choose not to disclose 10:17 AM EDT Sexual Orientation Choose not to disclose 2021 10:17 AM EDT documented as of this encounter Plan of Treatment Upcoming Encounters Date Type Department Care Team (Late st Contact Info) Description 02/13/2025 2:15 PM EDT Office Visit [facility] [address] [place] [address] Shweta Shaffer ANP [address] [place] [address] documented as of this encounter Visit Diagnoses Not on filedocumented in this encounter Additional Health Concerns Assessment Noted Time PHQ-9 Depression Total Score: 14 025 1:34 PM EST documented as of this encounter Care Teams Crematorium Operator Relationship Specialty Start Date End Date Shweta Shaffer ANP [address] [place] [id number] PCP - General Family Medicine 06/10/20 documented as of this encounter
--- OUTSIDE RECORDS SUMMARY | 2024-12-05 18:26 | XMS_ITS | Encounter Summary ---
Author Organization [employer] Address [address] [place] [address] Care Team Providers Care Warehouse Material Handler Name Role Phone Shweta Shaffer Primary Care Provider Reason for Visit * Reason Onset Date Comments may recall 11/29/2024 Tried calling pt to book a appt for folllow pre dm.no answer left ,sending letter Encounter Details Date Type Department Care Team ([facility] st Contact Info) Description 11/29/2024 Telephone [facility] [address] [place] [address] Rosa Lockwood [place] may recall (Tried calling pt to book a appt for folllow pre dm.no answer left ,sending letter) Social History Tobacco Use Types Packs/Day Years [...] with others, in a hotel, in a penitentiary, living outside on the street, on a [...] AM EDT documented as of this encounter Miscellaneous Notes * Telephone Encounter - Crista Bautista - 11/29/2024 11:51 AM EST Tc from pt father returning call thought it was for him. Advised pt needs to call for schedule appt. [phone] * Telephone Encounter - Rosa Lockwood MA - 11/29/2024 10:46 AM EST Tried calling pt to book a appt for folllow pre dm.no answer left vm ,sending letter documented in this encounter Plan of Treatment Upcoming Encounters Date Type Department Care Team (Late st Contact Info) Description 02/13/2025 2:15 PM EDT Office Visit [facility] [address] [place] [address] Shweta Shaffer ANP [address] [place] [address] documented as of this encounter Visit Diagnoses Not on filedocumented in this encounter Additional Health Concerns Assessment Noted Time PHQ-9 Depression Total Score: 14 025 1:34 PM EST documented as of this encounter Care Teams Warehouse Material Handler Relationship Specialty Start Date End Date Shweta Shaffer ANP [address] [place] [address] PCP - General Family Medicine 06/10/20 documented as of this encounter
--- OUTSIDE RECORDS SUMMARY | 2024-12-05 18:26 | XMS_ITS | Encounter Summary ---
Author Organization [facility] Address [address] [facility] 7 [place] [address] Care Team Providers Care General Dentist/Owner Name Role Phone Abida Lozada Primary Care Provider [phone] Reason for Visit * Reason Comments Follow-up Encounter Details Date Type Department Care Team ([facility] st Contact Info) Description 11/07/2024 1:00 PM EST Office Visit [facility] MEDICINE [address] [place] [address] Abida Lozada ANP [address] [place] [address] Elevated glucose (Primary Dx); Schizophrenia, unspecified type (CMS/HCC) Social History Tobacco Use Types Packs/Day Years [...] with others, in a hotel, in a skilled nursing, living outside on the street, on a [...] AM EDT documented as of this encounter Last Filed Vital Signs Vital Sign Reading Time Taken Comments Blood Pressure 124/78 11/07/2024 1:10 PM EST Pulse 103 11/07/2024 1:10 PM EST Temperature 36.8 ??C (98.2 ??F) 11/07/2024 1:10 PM ES T Respiratory Rate 20 11/07/2024 1:10 PM EST Oxygen Saturation 98% 11/07/2024 1:10 PM EST Inhaled Oxygen Concentration - - Weight 159 kg (351 lb) 11/07/2024 1:10 PM EST Height 182.9 cm (6') 11/07/2024 1:10 PM EST Body Mass Index 47.6 11/07/2024 1:10 PM EST documented in this encounter Progress Notes * CHARITY Alonso - 11/07/2024 1:00 PM EST Subjective Patient ID: Willy Ruiz is a 24 y.o. adult who presents for Follow-up. HPI On medbox. Not feeling consistently. Psych meds include: Nicasio carbonate 300mg, 1 tablet daily (HS) Nicasio carbonate ER 450mg, 2 tablets twice daily (AM/HS) Olanzapine 10mg, 1 tablet twice daily (AM/HS) Olanzapine 5mg, 1 tablet daily as needed Started by psych on metformin 07/31/24 500mg ER BID. We have no previous record of preDM. A1c todayas below Last meds filled in 2023 - per [facility] pharmacy he picked up med boxes 10/19/24. Pharmacy will clarify-appears med boxes were filled 08/30/2024 but patient did not pick these up until 10/19/2024. Lab Results Component Value Date HGBA1C 5.6 11/07/2024 HGBA1C 5.2 03/24/2024 Non-smoker Smokes MJ. Here w/ dad. Continues to have poor insight into mental health condition though does say that he finds medication helpful. Dad has many questions including how does he respond when Naresh?? does certain behaviors and asks whyJose Huber says some of the things that he does (such as I paid my therapist in sleep paralysis which he mentions a few times in today's appointment) Review of Systems Constitutional: Negative for chills and fever. HENT: Negative for sore throat. Respiratory: Negative for cough and shortness of breath. Cardiovascular: Negative for chest pain. Gastrointestinal: Negative for constipation and diarrhea. Endocrine: Negative for polydipsia, polyphagia and polyuria. Genitourinary: Negative for dysuria. Willy denies any symptoms though is not a particularly reliable historian Objective BP 124/78 (BP Location: Left arm, Patient Position: Sitting, BP Cuff Size: Adult) [id number] Temp 98.2 ??F (36.8 ??C) (Temporal) Resp 20 Ht 6' (1.829 m) Wt 351 lb (159 kg) SpO2 98% BMI 47.60 kg/m?? Physical Exam Vitals reviewed. Constitutional: General: Willy is not in acute distress. Appearance: Normal appearance. Willy is not toxic-appearing. HENT: Head: Normocephalic and atraumatic. Eyes: General: No scleral icterus. Extraocular Movements: Extraocular movements intact. Pupils: Pupils are equal, round, and reactive to light. Cardiovascular: Rate and Rhythm: Normal rate and regular rhythm. Pulmonary: Effort: Pulmonary effort is normal. Neurological: Mental Status: Willy is alert. Mental status is at baseline. Cranial Nerves: No cranial nerve deficit. Gait: Gait normal. Psychiatric: Mood and Affect: Mood normal. Behavior: Behavior normal. Assessment/Plan Diagnoses and all orders for this visit: Elevated glucose Lab Results Component Value Date HGBA1C 5.6 11/07/2024 a1C today consistent with prediabetes. Continue metformin from psychiatry. Encouraged Naresh?? to exercise at least 30 minutes 3 times per week and decrease sugary food and drink intake which includes juice. I will take over metformin Rx. Not clear where Dr. Petty was from - suspect during last inpt admission for psych. - POCT HGB A1C - POCT Glucose Schizophrenia, unspecified type ([facility]) Continues to have poor insight into mental health condition. Dad also needs support and education. Have asked behavioral health team to reach out to dad (Willy Prado Sr [birth year]60) to help him establish with his own therapist. As much as I appreciate dad's participation - his comments and questions often dominate our visits and appear to agitate Naresh?? Jr. Will update medication list once hardcopy of fill history from pharmacy is received. Still not taking medication consistently. Asked dad and patient to please set reminders to take medications as prescribed. Pharmacy residents will assist in clearing up med list and contacting psych. We have 1 rx for Li 300mg bedtime on hold from Dr. Warren and 2 in box - 450 ER and 300mg bedtime) from Drs. Petty and Toya. documented in this encounter Miscellaneous Notes * Addendum Note - CHARITY Alonso - 11/07/2024 1:00 PM ESTAddended by: ABIDA LOZADA on: 11/07/2024 04:01 PM Modules accepted: Orders documented in this encounter Plan of Treatment Upcoming Encounters Date Type Department Care Team (Late st Contact Info) Description 02/13/2025 2:15 PM EDT Office Visit [facility] MED[facility]INE [address] [place] [address] Abida Lozada ANP [address] [place] [address] documented as of this encounter Procedures Procedure Name Priority Date/Time Associated Diagnosis Comments POCT GLYCATED HEMOGLOBIN, TOTAL Routine 11/07/2024 1:23 PM EST Elevated glucose POCT GLUCOSE Routine 11/07/2024 1:22 PM EST Elevated glucose documented in this encounter Results * POCT HGB A1C (11/07/2024 1:23 PM EST) Hemoglobin A1C 5.6 4.0 - 6.0 % QC Media Lot # [id number] Lot# Expiration Date Blood 11/07/2024 1:23 PM EST us Abida NASH POINT OF CARE TEST ENTER/EDIT OR DERABLES Final Result * POCT Glucose (11/07/2024 1:22 PM EST) Glucose Blood, POC 109 60 - 200 mg/dL QC Media Lot # [id number] Lot# Expiration Date ,025 Blood Capillary blood specimen / Unknown 11/07/2024 1:22 PM EST us Abida NASH POINT OF CARE TEST ENTER/EDIT OR DERABLES Final Result documented in this encounter Visit Diagnoses Diagnosis Elevated glucose- Primary Other abnormal glucose Schizophrenia, unspecified type (CMS/HCC) documented in this encounter Additional Health Concerns Assessment Noted Time PHQ-9 Depression Total Score: 14 025 1:34 PM EST documented as of this encounter Care Teams General Dentist/Owner Relationship Specialty Start Date End Date Abida Lozada ANP [address] [place] [id number] PCP - General Family Medicine 06/10/20 documented as of this encounter
--- OUTSIDE RECORDS SUMMARY | 2024-12-05 18:26 | XMS_ITS | Encounter Summary ---
Author Organization [employer] Address [address] [facility] 7t [place] [address] Care Team Providers Care Lay Out Carpenter Name Role Phone Shweta Shaffer Primary Care Provider [phone] Encounter Details Date Type Department Care Team (Late st Contact Info) Description 11/29/2024 Telephone [facility] MEDICINE [address] [place], [place] [id number] Rosa Lockwood MS Social History Tobacco Use Types Packs/Day Years [...] with others, in a hotel, in a snf, living outside on the street, on a [...] t he electric, gas, oil or water [employer] (Inspect Manager) threatened to shut off services in your [...] Description 02/13/2025 2:15 PM EDT Office Visit [facility] MEDICINE [address] [place] [address] Shweta Shaffer ANP [address] [place] [address] documented as of this encounter Visit Diagnoses Not on filedocumented in this encounter Additional Health Concerns Assessment Noted Time PHQ-9 Depression Total Score: 14 025 1:34 PM EST documented as of this encounter Care Teams Lay Out Carpenter Relationship Specialty Start Date End Date Shweta Shaffer ANP [address] [place] [address] PCP - General Family Medicine 06/10/20 documented as of this encounter
--- OUTSIDE RECORDS SUMMARY | 2024-12-05 18:26 | XMS_ITS | Encounter Summary ---
Author Organization [employer] Address [address] [facility] 7t [place] [address] Care Team Providers Care Store Standards Associate Name Role Phone Shweta Shaffer Primary Care Provider [phone] Reason for Visit * Reason Onset Date Comments Appointment Request 08/08/2024 Encounter Details Date Type Department Care Team ([facility] Contact Info) Description 08/08/2024 Telephone [facility] MEDICINE [address] [place] [address] Shweta Shaffer ANP [address] [place] [address] Appointment Request Social History Tobacco Use Types Packs/Day Years Used Date Smoking Tobacco: Every Day Cigarettes Smokeless Tobacco: Never Alcohol Use Standard Drinks/Week Comments Not Currently 0 (1 standard drink = 0.6 oz pur e alcohol) Depression Answer Date Recorded Patient Health Questionnaire-9 Score 5 03/30/2024 Patient Health Questionnaire-9 Score 5 03/30/2024 Last PHQ-9: Questionnaire Data Not on file 0 03/30/2024 Housing Stability Answer Date Recorded What is your housing situation today? I do not have housing (Staying with others, in a hotel, in a mcc, living outside on the street, on a [...] Date Recorded Patient Health Questionnaire-2 Score 3 03/30/2024 Sex and Gender Information Value Date Recorded Sex Assigned at Male 08/10/2022 10:17 AM EDT Legal Sex Male 10:17 AM EDT Gender Identity Choose not to disclose 10:17 AM EDT Sexual Orientation Choose not to disclose 2021 10:17 AM EDT documented as of this encounter Miscellaneous Notes * Telephone Encounter - Arie Rose - 08/08/2024 9:20 AM EDT Tc from pt stating he received a call from [facility] nurse to schedule an appt. documented in this encounter Plan of Treatment Upcoming Encounters Date Type Department Care Team (Late st Contact Info) Description 02/13/2025 2:15 PM EDT Office Visit [facility] MEDICINE [address] [place] [address] Shweta Shaffer ANP [address] [place] [address] documented as of this encounter Visit Diagnoses Not on filedocumented in this encounter Additional Health Concerns Assessment Noted Time PHQ-9 Depression Total Score: 5 03/30/20 24 2:50 PM EDT documented as of this encounter Care Teams Store Standards Associate Relationship Specialty Start Date End Date Shweta Shaffer ANP [address] [place] [address] PCP - General Family Medicine 06/10/20 documented as of this encounter
--- OUTSIDE RECORDS SUMMARY | 2024-12-05 18:26 | XMS_ITS | Encounter Summary ---
Author Organization [employer] Address [address] [facility] 7t [place] [address] Care Team Providers Care Siebel Architect Name Role Phone Shweta Shaffer Primary Care Provider [phone] Reason for Visit * Reason Onset Date Comments may recall 12/01/2024 Encounter Details Date Type Department Care Team ([facility] st Contact Info) Description 12/01/2024 Telephone [facility] MEDICINE [address] [place] [address] Rosa Lockwood MA may recall Social History Tobacco Use Types Packs/Day Years [...] with others, in a hotel, in a senior living, living outside on the street, on a [...] encounter Miscellaneous Notes * Telephone Encounter - Rosa Lockwood MA - 12/01/2024 9:40 AM EST Telephone call to patient to schedule the following recall: Visit type: Follow up Appointment notes: DM Patient agree to appointment on february 13 at 2:15 AM with Deena. documented in this encounter Plan of Treatment Upcoming Encounters Date Type Department Care Team (Late st Contact Info) Description 02/13/2025 2:15 PM EDT Office Visit [facility] MEDICINE [address] [place] [address] Shweta Shaffer ANP [address] [place] [address] documented as of this encounter Visit Diagnoses Not on filedocumented in this encounter Additional Health Concerns Assessment Noted Time PHQ-9 Depression Total Score: 14 025 1:34 PM EST documented as of this encounter Care Teams Siebel Architect Relationship Specialty Start Date End Date Shweta Shaffer ANP [address] [place] [id number] PCP - General Family Medicine 06/10/20 documented as of this encounter
--- OUTSIDE RECORDS SUMMARY | 2024-12-05 18:26 | XMS_ITS | Encounter Summary ---
Author Organization [employer] Address [address] [facility] 7t [place] [address] Care Team Providers Care Education Instructor Name Role Phone Shweta Shaffer Primary Care Provider [phone] Reason for Visit * Reason Onset Date Comments Error 12/27/2023 Encounter Details Date Type Department Care Team ([facility] st Contact Info) Description 12/27/2023 Telephone [facility] MEDICINE [address] [place] [address] Shweta Shaffer ANP [address] [place] [address] Error Social History Tobacco Use Types Packs/Day Years Used Date Smoking Tobacco: Some Days Cigarettes Smokeless Tobacco: Never Alcohol Use Standard Drinks/Week Comments Not Currently 0 (1 standard drink = 0.6 oz pur e alcohol) Depression Answer Date Recorded Patient Health Questionnaire-9 Score 6 11/20/2022 Housing Stability Answer Date Recorded What is your housing situation today? I have harshaivone hutchins 08/16/[address] you li ve. Do you have problems with any of the following? None of the above 08/16/2023 Food Insecurity Answer Date Recorded Within the past 12 months, y ou worried that your food would run out before you got money to buy more: Sometimes True 2022 Within the past 12 months,th e food you bought just didn't last and you didn't have enough money to get more: Sometimes True 08/16/2023 Transportation Answer Date Recorded In the past 12 months, has l ack of transportation kept you from medical appts, meetings, work or from getting things needed for daily living? Yes, it has kept me from medical appointments or getting medications. 07/18/2023 Utilities Answer Date Recorded In the past 12 months, has t he [employer], [employer], oil or water company threatened to shut off services in your home? No 08/16/2023 Depression Answer Date Recorded Patient Health Questionnaire-2 Score 2 11/20/2022 Sex and Gender Information Value Date Recorded [...] Description 02/13/2025 2:15 PM EDT Office Visit [facility] MEDICINE [address] [place] [address] Shweta Shaffer ANP [address] [place] [address] documented as of this encounter Visit Diagnoses Not on filedocumented in this encounter Additional Health Concerns Assessment Noted Time PHQ-9 Depression Total Score: 6 11/20/19 23 8:42 AM EST documented as of this encounter Care Teams Education Instructor Relationship Specialty Start Date End Date Shweta Shaffer ANP [address] [place] [id number] PCP - General Family Medicine 06/10/20 documented as of this encounter
--- OUTSIDE RECORDS SUMMARY | 2024-12-05 18:26 | XMS_ITS | Clinical Summary ---
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 Blood Pressure kitIndications :Elevated blood pressure reading 1 kit in the morning. 1 kit 11/19/19 23 Active lithium ER (Eskalith) 450 MG 12 hr tablet Take 2 tablets by mouth 2 times daily. 05/24/20 24 Active OLANZapine (ZyPREXA) 10 MG tablet Take 1 tablet by mouth at bedtime. 05/24/20 24 Active OLANZapine (ZyPREXA) 5 MG tablet Take 1 tablet by mouth if needed each day (For anger/loudn ess/agitati on). 05/24/20 24 Active hydrOXYzine HCl (Atarax) 25 MG tablet Take 1 tablet by mouth every 6 (six) hours if needed (for anxiety or insomnia). 05/24/20 24 Active lithium 300 MG tablet Take 300 mg by mouth at bedtime. 07/31/20 24 Active metFORMIN XR (Glucophage-XR ) 500 MG 24 hr tabletIndicati ons:Elevated glucose Take 1 tab once daily with food 90 tablet 1 11/07/19 25 Active metFORMIN XR (Glucophage-XR ) 500 MG 24 hr tablet Take 500 mg by mouth Once per day. 07/31/20 24 025 Discontinued(Re order (will not trigger notification to Pharmacy)) Active Problems Problem Noted Date Diagnosed Date Schizophrenia 11/19/2022 Assessment & Plan (03/30/2024 3:17 PM EDT): During IBH Consult Willy presenting with non-compliance of medication and MH services, agitation, disorganized thoughts; for a period of 18+ mo, for all symptoms in the context of chronic mental health illness, lack of social support and network. Willy carries a mental health diagnosis for schizophrenia. Willy has difficulty engaging in services. He was connected with therapist and psych provider from [facility]. Completed three sessions, then lost care due to missing appointments. Willy does not acknowledged mental health issues. His dad reports complications in Willy's life style associated with MH illness. Patient was engaged in active listening and open- ended questions. He was educated on the importance of connecting with services and follow recommendations to maintain a stable mental health. PLAN: (check all that apply) Further services needed, but declined Behavioral Health Integration Plan Patient Self Plan Patient to [facility] as needed and Patient to reach out to [facility] as needed Pt will request to make new appointment with [facility] since he was already connected with agency. Assessment & Plan (05/14/2023 9:53 AM EDT): Assessment: ?? Patient with schizophrenia (diagnosis documented in the medical chart, hallucinations, delusions, negative symptoms, and increased aggression) in the context of biopsychosocial stressors of financial and food insecurities. Patient will benefit from OP therapy and psychiatry with medication management. Referral will be place when family has a working telephone. Care management [facility] referral was place for supports with financial and food insecurities as well as support in obtaining a phone and disability paperwork. ?? At this time Willy Ruiz meets criteria for Visit Diagnoses: Problem List Items Addressed This Visit ? Other ?? Schizophrenia ([facility]) Patient ready to address current needs No ?? Strengths- Willy huber father is open and a source for financial and emotional support ?? PLAN: 1. Follow up with [facility]: Recommended for follow-up: As needed 2. Patient goal is is to engage in OP therapy and psychiatry for medication management 3. Behavioral Recommendations a. Care management supports to obtain a working phone b. OP therapy Psychiatry Childhood obesity 05/28/2015 Encounters Date Type Department Care Team Description 12/01/2024 Telephone [facility] [address] [place] [id number] Rosa Lockwood MA may recall 11/29/2024 Telephone [facility] [address] [place] [address] Rosa Lockwood [place] 11/29/2024 Telephone [facility] [address] [place] [address] Rosa Lockwood MA may recall (Tried calling pt to book a appt for folllow pre dm.no answer left ,sending letter) 11/07/2024 1:00 PM EST Office Visit [facility] [address] [place] [address] Shweta Shaffer ANP Elevated glucose (Primary Dx); Schizophrenia, unspecified type ([facility]) 11/07/2024 Travel 10/03/2024 10:30 AM EST Office Visit [facility] [address] [place], [place] [phone] Krishna, Tameka, OD Myopia of both eyes (Primary Dx) 09/21/2024 Travel 09/21/2024 Telephone [facility] [address] [place] [address] Shweta Shaffer ANP 09/11/2024 Telephone [facility] [address] [place] [address] Shweta Shaffer ANP Referral from Last 3 Months Immunizations Name Administration Dates Next Due DTaP 08/06/2003, 2,11/01/2000,09/01,1998 HPV, Quadrivalent 12/07/2014,07/25/2014,11/29/19 14 Hep A, ped/adol, 2 dose 12/07/2014,11/29/2013 Hep B, Adolescent or Pediatric 01/17/2002,1998,1998 Hib (HbOC) 11/01/2000,09/01/1999,1998 IPV 08/06/2003, 1,09/01/1999,10/15 Influenza injectable quadriv alent preservative free 07/25/2014 MMR 08/06/2003,11/01/2000 Meningococcal MCV4P [id number]-135 12/18/2015,11/29/19 14 Pfizer Covid-19 Vaccine 12+ 10/30/2021 Tdap 11/18/2010 Varicella 07/22/2011,01/17/2002 Social History Tobacco Use Types Packs/Day Years Used Date Smoking Tobacco: Every Day Cigarettes Smokeless Tobacco: Never Tobacco Cessation:Ready to Q uit: Not Asked; Counseling Given: Not Answered Alcohol Use Standard Drinks/Week Comments Not Currently [...] with others, in a hotel, in a detention, living outside on the street, on a [...] not to disclose 2021 10:17 AM EDT Last Filed Vital Signs Vital Sign Reading [...] Mass Index 47.6 11/07/2024 1:10 PM EST Plan of Treatment Upcoming Encounters Date Type Department Care Team (Late st Contact Info) Description 02/13/2025 2:15 PM EDT Office Visit [facility] [address], [place] [phone] Shweta Shaffer ANP [address], [place] [phone] Health Maintenance Due Date Last Done Comments HIV Screening 1998 Alcohol/Substance Use Screening 2010 Family Planning (PISQ) 2013 Hepatitis C Screening 2016 Pneumococcal Vaccine: Pediatrics (0 to 5 Years) and At-Risk Patients (6 to 49) Years) (1 of 2 - PCV) 2017 DTaP/Tdap/Td Vaccines (7 - Td or Tdap) 11/18/2020 11/18/2010, 08/06/2003, 01/17/2002, Additional history exists COVID-19 Vaccine (2 - 2023- season) 2024 10/30/2021 Influenza Vaccine (#1) 2024 07/25/2014 SDOH Screening 02/22/2025 02/23/2024 Depression Monitoring (PHQ-9) 05/07/2025 11/07/2024, 11/07/2024 Depression Screening 11/07/2025 11/07/2024, 11/07/19 Tobacco Screening 11/07/2025 11/07/2024 Lipid Panel 03/24/2029 03/24/2024 Zoster Vaccines (1 of 2) 2048 RSV Patients and Patients Aged 60 years or older (1 - 1-dose 75+ series) 2073 HIB Vaccines Completed 11/01/2000, 08/12, 1998 Hepatitis B Vaccines Completed 01/17/2002, 1998, 1998 IPV Vaccines Completed 08/06/2003, 01/10, 09/01/1999, Additional history exists HPV Vaccines Completed 12/07/2014, 07/11, 11/29/2013 Hepatitis A Vaccines Completed 12/07/2014, 11/29/19 14 Meningococcal Vaccine Completed 12/18/2015, 014 RSV under 20 months Aged Out No longe r eligible based on patient's age to complete this topic Rotavirus Vaccines Aged Out No longer eligible based on patient's age to complete this topic Procedures Procedure Name Priority Date/Time Associated Diagnosis Comments POCT GLYCATED HEMOGLOBIN, TOTAL Routine 11/07/2024 1:23 PM EST Elevated glucose POCT GLUCOSE Routine 11/07/2024 1:22 PM EST Elevated glucose LIPID PANEL, STANDARD Routine 03/24/2024 1:05 PM EDT Schizophrenia, unspecified type ([facility]) from Last 3 Months or Most Recently Relevant to Health Maintenance Results * POCT HGB A1C (11/07/2024 1:23 PM EST) Hemoglobin A1C 5.6 4.0 - 6.0 % QC Media Lot # [id number] Lot# Expiration Date , Blood 11/07/2024 1:23 PM EST us Shweta NASH POINT OF CARE TEST ENTER/EDIT OR DERABLES Final Result * POCT Glucose (11/07/2024 1:22 PM EST) Glucose Blood, POC 109 60 - 200 mg/dL QC Media Lot # [id number] Lot# Expiration Date ,025 Blood Capillary blood specimen / Unknown 11/07/2024 1:22 PM EST us Shweta NASH POINT OF CARE TEST ENTER/EDIT OR DERABLES Final Result * (ABNORMAL) Lipid Panel, Standard (03/24/2024 1:05 PM EDT) Triglycerides 179(H) <150 mg/dL [facility] Comment:Desirable Triglyceri de: less than 150 mg/dLBorderline High Triglyceride 150-199 mg/dLHigh Triglyceride: 200-499 mg/dLVery High Triglyceride: greater than or equal to 5OO mg/dL Cholesterol 170 <200 mg/dL [facility] Comment:Desirable Cholestero l: less than 200 mg/dLBorderline High Cholesterol: 200-239 mg/dLHigh Cholesterol: greater than 239 mg/dL LDL Cholesterol Calculated 94 <100 mg/dL [facility] Comment:Desirable LDL: less than 100 mg/dLNear Optimal/Above Optimal LDL: 110- 129 mg/dLBorderline High LDL: 130-159 mg/dLHigh LDL: 160-189 mg/dLVery High LDL: greater than or equal to 190 mg/dL HDL Cholesterol 41 >40 mg/dL [facility] Comment:Desirable HDL: great er than 40 mg/dL Note: This HDL assay may give artificially low results in patients with liver disease. Blood Venous blood specimen / Unknown 03/24/2024 1:05 PM EDT 03/24/2024 4:11 PM EDT Shweta [facility] BLOOD ORDERABLES Final Resul t [facility] [address] [place] [address] [phone] from Last 3 Months or Most Recently Relevant to Health Maintenance Insurance [employer] F[employer] Care Teams Charging Machine Operator Relationship Specialty Start Date End Date Shweta Shaffer ANP [address] [place] [address] PCP - General Family Medicine 06/10/20
[2024-12-05 18:36] LABS: Alanine Aminotransferase 24 U/L (0-40); Albumin Level 3.8 g/dL (3.5-5.0); Alkaline Phosphatase 69 U/L (39-117); Anion Gap 11 (12-20); Aspartate Amino Transferase 25 U/L (5-37); Bilirubin Total 0.4 mg/dL (0.0-1.0); Blood Urea Nitrogen 11 mg/dL (9-16); Calcium 9.1 mg/dL (8.4-10.2); Carbon Dioxide 25 mmol/L (22-29); Chloride 108 mmol/L (96-108); Creatinine Clr Calc Pharmacy 178.8; Estimated Glomerular Filt Rate > 60; Ethanol < 10 mg/dL; Glucose Random 83 mg/dL (60-115); Potassium 3.9 mmol/L (3.3-5.1); Sodium 140 mmol/L (135-145); Total Protein 7.3 g/dL (6.5-8.0)
[2024-12-05 23:48] VITALS: BP 146/106; PULSE 75; RESP 16; TEMP 36.2; O2SAT 98
[2024-12-06] VITALS (10 sets, daily range): BP systolic 132–149; BP diastolic 66–93; PULSE 82–108; RESP 16–26; TEMP 36.9; O2SAT 95–97
--- NOTE | 2024-12-06 07:35 | PC.NURSE ---
Assumed care of patient at 0645, patient appears to be in no apparent distress this am, sleeping, respirations even and unlabored. Continue plan of care for inpatient bedsearch
[2024-12-06] MEDS: OLANZapine 10 MG VIAL IM (09:45)
[2024-12-06] MEDS: Midazolam HCl 5 MG/ML VIAL IM (09:45)
--- NOTE | 2024-12-06 10:00 | MHC.CARE ---
Pt will be an inpatient bedsearch
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
--- NOTE | 2024-12-06 10:56 | PHA.MEDREC ---
Addendum entered by Stephany King RPh 12/06/24 14:32: Med rec was reviewed by [facility]. Original Note: Pharmacy Consult ? Medication Reconciliation Pharmacy reviewed med rec done by nursing. Claims match what is confirmed on med rec.
--- NOTE | 2024-12-06 11:57 | PC.NURSE ---
Patient appears to be sleeping, no apparent distress is noted at this time, respirations are even and unlabored
--- NOTE | 2024-12-06 14:13 | PC.NURSE ---
delaying dose of lithium until patient is awake
--- NOTE | 2024-12-06 15:13 | PC.NURSE ---
Assumed care of this patient at 1500, patient continues to sleep on bed, resps even/unlabored. Meds deferred until patient wakes up.
--- NOTE | 2024-12-06 15:28 | P.EN_ITS ---
Documented by User: Sharee Durand NP 12/06/24 15:34 Event Note Date of Service: 12/06/24 Event Note: Attempted to see pt while in the ED for medication recommendations as he awaiting ILOC. He received IM olanzapine and Versed, has slept most of the day, this is after being awake most of the night, highly paranoid and agitated. Recommend to restart prior regimen of Olanzapine 10mg po BID. PRN Olanzapine 10mg po q6h prn for severe agitation, ativan 1mg po q6h prn severe anxious moo d.will attempt to assess tomorrow if pt still awaiting for bed inpt. Time Spent With Patient Time: Total time managing care of this patient today ____ minutes. Documented by User: Librado Sorto MD 12/12/24 22:55 Event Note Date of Service: 12/12/24
[2024-12-06] MEDS: Lithium Carbonate ER 450 MG TABLET.ER PO (16:14)
--- NOTE | 2024-12-06 16:32 | PC.NURSE ---
Patient has awoken, currently calmly watching tv, asking when he is going to leave. Care team aware, will be out to speak with him. Patient aware urine sample needed.
[2024-12-06 18:50] LABS: Amphetamine Screen Urine Not Detected (Not Detect); Barbiturates, Urine Not Detected (Not Detect); Benzodiazepines Screen Urine POSITIVE (Not Detect); Buprenorphine Scr Not Detected (Not Detect); Cannabinoid Screen Urine POSITIVE (Not Detect); Cocaine Screen Urine Not Detected (Not Detect); Fentanyl, urine Not Detected (Not Detect); Methadone Screen, Urine Not Detected (Not Detect); Opiate Screen Urine Not Detected (Not Detect); Oxycodone Screen Urine Not Detected (Not Detect); Phencyclidine Screen Urine Not Detected (Not Detect)
[2024-12-06 18:52] LABS: Appearance Urine Clear; Color Urine Yellow; Glucose Urine UA Negative (Negative); Leukocyte Esterase Urine Negative (Negative); Nitrite Urine Negative (Negative); Specific Gravity - Urine 1.025 (1.005-1.025); Urine Blood Negative (Negative); Urine Ketones 40 mg/dL (Negative); Urine Protein Negative (Neg-Trace)
[2024-12-06] MEDS: OLANZapine ODT 10 MG TAB.RAPDIS TRANSLINGU (20:02)
[2024-12-06] MEDS: LORazepam 1 MG TABLET PO (20:02)
[2024-12-06] MEDS: traZODone HCL 50 MG TABLET PO (20:02)
--- NOTE | 2024-12-06 20:04 | PC.NURSE ---
patient very restles, ativan given with bedtime medication
[2024-12-07 06:38] VITALS: RESP 21
--- NOTE | 2024-12-07 07:37 | ECG_ITS ---
Test Reason : R/O PROLONGED QT Blood Pressure : */* mmHG Vent. Rate : 108 BPM Atrial Rate : 108 BPM P-R Int : 128 ms QRS Dur : 112 ms QT Int : 358 ms P-R-T Axes : 48 50 32 degrees QTcB Int : 479 ms Sinus tachycardia Otherwise normal ECG When compared with ECG of 18-May-2024 15:55, No significant change was found Referred By: Joseph Copeland Electronically Signed By: Elton Flynn
[2024-12-07] MEDS: LORazepam 1 MG TABLET PO ×2 (09:27→12:08)
[2024-12-07] MEDS: OLANZapine ODT 10 MG TAB.RAPDIS TRANSLINGU ×2 (09:27→21:56)
[2024-12-07 09:29] VITALS: BP 113/69; PULSE 91; RESP 95; TEMP 36.9; O2SAT 95
--- NOTE | 2024-12-07 09:44 | PC.NURSE ---
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 Patient states he doesn't have to stay in the hospital. Called security on stand by.
--- NOTE | 2024-12-07 09:48 | MHC.EDTECH ---
This tech performed EKG on patient, disconnected patient from machine and left room. Upon leaving room I realized that the EKG did not cross over in system and order is still listed on the EKG machine. RN aware that EKG did not cross over. Patient unwilling to allow an additional EKG to be performed at this time.
--- NOTE | 2024-12-07 10:19 | PC.NURSE ---
Patient starts talking to Oni ? if this is a fictional person. He knows he's going to be here for 3 days. He's ok with being here for 3 days. redirectable was able to give his medications.
[2024-12-07] MEDS: OLANZapine 5 MG TABLET PO (12:08)
[2024-12-07 15:00] VITALS: BP 132/80; PULSE 110; RESP 16; TEMP 36.9; O2SAT 99; BMI 35.3
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
[2024-12-07] MEDS: Cyclobenzaprine HCl 10 MG TABLET PO (18:09)
[2024-12-07 20:00] VITALS: BP 119/72; PULSE 102; RESP 16; TEMP 37.9; O2SAT 93
[2024-12-07] MEDS: Lithium Carbonate 300 MG CAPSULE PO (21:56)
--- NOTE | 2024-12-08 04:05 | PC.NURSE ---
At 0355 patient woke up and came to the kitchen, alerted staff he had concerns with his balance. Patient said I got up from bed and then I fell back on my bed. Patient said due to his history of strokes, he was concerned he might be having another one. Patient normally uses a cane, but may only use a walker on M5 and chooses not to use it. 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 Patient said I think I'm just anxious . Patient offered and accepted Hydroxyzine 25 mg po as a prn at 0405. Patient then said he was going to go back to bed.
[2024-12-08 08:00] VITALS: BP 120/59; PULSE 88; RESP 18; TEMP 36.6; O2SAT 98
[2024-12-08] MEDS: OLANZapine ODT 10 MG TAB.RAPDIS TRANSLINGU ×2 (08:53→21:01)
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
[2024-12-08] MEDS: Acetaminophen 325 MG TABLET 650 MG PO (11:23)
[2024-12-08] MEDS: Cyclobenzaprine HCl 10 MG TABLET PO (18:43)
[2024-12-08] MEDS: OLANZapine 5 MG TABLET PO (18:43)
[2024-12-08 20:00] VITALS: BP 158/81; PULSE 97; RESP 16; TEMP 36.7; O2SAT 94
[2024-12-08] MEDS: Lithium Carbonate 300 MG TABLET 450 MG PO (21:01)
[2024-12-08] MEDS: traZODone HCL 50 MG TABLET PO (21:01)
[2024-12-08] MEDS: Gabapentin 100 MG CAPSULE PO (21:01)
[2024-12-09 08:00] VITALS: BP 107/58; PULSE 72; RESP 16; TEMP 36.4; O2SAT 96
[2024-12-09] MEDS: Lithium Carbonate 300 MG TABLET 450 MG PO ×2 (08:45→20:16)
[2024-12-09] MEDS: OLANZapine ODT 10 MG TAB.RAPDIS TRANSLINGU ×2 (08:49→20:16)
--- NOTE | 2024-12-09 18:11 | P.PNPSI_ITS ---
Subjective Subjective Date of Service: 12/09/24 Reason For Visit: Disorganized Psychosis Interim History: no complaints or requests. per staff, psychotic. 12b up wednesday. taking meds, no behavioral problems. Mental Status Exam Mental Status Exam Patient Appearance: Fatigued Patient Orientation: Person and Place Level of Consciousness: Alert Patient Behavior: Guarded, Suspicious, Resistive to Care and Avoidant Mood Description: Withdrawn Affect Description: Withdrawn Patient Cognition Impaired: No Ability to Follow Directions: Fair Speech Pattern: Spontaneous Speech Memory Description: Remote Impaired Hallucinations: Auditory Delusions: Paranoid Ideation and Present Thought Process: Distracted Thought Content: positive for [place] Judgement: Poor Diagnostics Vital Signs (24Hr): Vital Signs - 24 hr 12/08/24 20:00 12/09/24 08:00 Temperature 98.1 F 97.6 F Pulse Rate 97 72 Respiratory Rate 16 16 Blood Pressure 158/81 H 107/58 L Pulse Oximetry 94 96 Oxygen Delivery Method Room Air BMI result Body Mass Index 35.3 Labs 12/05/24 18:15 12/05/24 18:15 Medications Medications Current Medications Acetaminophen (Acetaminophen 325 Mg Tablet) 650 mg PO Q6H PRN PRN Reason: Headache/Pain, Scale 1-10 Last Admin: 12/08/24 11:23 Dose: 650 mg Al Hydroxide/Mg Hydroxide (Magnesium Hydrox/Alum Hydrox 30 Ml Oral.Susp) 30 ml PO Q6H PRN PRN Reason: Heartburn/Nausea Cyclobenzaprine HCl (Cyclobenzaprine Hcl 10 Mg Tablet) 10 mg PO TID PRN PRN Reason: leg spasm and pain Last Admin: 12/08/24 18:43 Dose: 10 mg Gabapentin (Gabapentin 100 Mg Capsule) 100 mg PO BEDTIME [facility] Last Admin: 12/08/24 21:01 Dose: 100 mg Hydroxyzine HCl (Hydroxyzine Hcl 25 Mg Tablet) 25 mg PO Q6H PRN PRN Reason: mild anxiety Floris Carbonate (Floris Carbonate 300 Mg Tablet) 450 mg PO BID [facility] Last Admin: 12/09/24 08:45 Dose: 450 mg Lorazepam (Lorazepam 1 Mg Tablet) 1 mg PO TID PRN PRN Reason: Anxiety Last Admin: 12/07/24 12:08 Dose: 1 mg Magnesium Hydroxide (Milk Of Magnesia 30 Ml Oral.Susp) 30 ml PO DAILY PRN PRN Reason: Constipation Nicotine Polacrilex (Nicotine Polacrilex 2 Mg Gum) 4 mg BUCCAL Q2H PRN PRN Reason: Nicotine Cravings Olanzapine (Olanzapine Odt 10 Mg Tab.Rapdis) 10 mg TRANSLINGU BID MIRELLA Last Admin: 12/09/24 08:49 Dose: 10 mg Olanzapine (Olanzapine 5 Mg Tablet) 5 mg PO TID PRN PRN Reason: agitation Last Admin: 12/08/24 18:43 Dose: 5 mg Trazodone HCl (Trazodone Hcl 50 Mg Tablet) 50 mg PO BEDTIME MRX1 PRN PRN Reason: Insomnia Last Admin: 12/08/24 21:01 Dose: 50 mg Allergies Allergies Allergy/AdvReac Type Severity Reaction Status Date / Time No Known Allergies Allergy Verified 12/05/24 14:02 Assessment & Plan Assessment & Plan (1) Chronic schizophrenia: Status: Acute Code(s): F20.9 - Schizophrenia, unspecified Plan Admit, CV, 15 minute checks Restart [place], Olanzapine, Gabapentin Collateral contact Diagnostics as needed Discharge planning. 12/09: calm, no requests or complaints. med-compliant. continue current mgmt. Reason for continued inpatient stay Substantial Risk for: inability to function Time Spent With Patient Time: Total time managing care of this patient today ____ minutes.
[2024-12-09 20:00] VITALS: BP 127/77; PULSE 106; RESP 16; TEMP 36.4; O2SAT 96
[2024-12-09] MEDS: traZODone HCL 50 MG TABLET PO (20:16)
[2024-12-09] MEDS: Gabapentin 100 MG CAPSULE PO (20:16)
[2024-12-10 08:00] VITALS: BP 103/69; PULSE 73; RESP 16; TEMP 36.8; O2SAT 96
[2024-12-10] MEDS: OLANZapine ODT 10 MG TAB.RAPDIS TRANSLINGU ×2 (08:45→20:35)
[2024-12-10] MEDS: Lithium Carbonate 300 MG TABLET 450 MG PO ×2 (08:45→20:33)
--- NOTE | 2024-12-10 15:52 | P.PNPSI_ITS ---
Subjective Subjective Date of Service: 12/10/24 Reason For Visit: Disorganized Psychosis Interim History: up and about today, asking about discharge. explained 12b up wednesday and hospital with either discharge or file for commitment. appeared to have a hard time grasping that he wasn't 100% leaving on wednesday. no complaints or requests. per staff, 12b up wednesday. no issues. Mental Status Exam Mental Status Exam Patient Appearance: Appropriate Patient Orientation: Person and Place Level of Consciousness: Alert Patient Behavior: Guarded and Resistive to Care Mood Description: Withdrawn Affect Description: Withdrawn Patient Cognition Impaired: No Ability to Follow Directions: Fair Speech Pattern: Spontaneous Speech Memory Description: Remote Impaired Thought Content: positive for [place] Judgement: Poor Diagnostics Vital Signs (24Hr): Vital Signs - 24 hr 12/09/24 20:00 12/10/24 08:00 Temperature 97.5 F 98.2 F Pulse Rate 106 H 73 Respiratory Rate 16 16 Blood Pressure 127/77 103/69 Pulse Oximetry 96 96 Oxygen Delivery Method Room Air BMI result Body Mass Index 35.3 Labs 12/05/24 18:15 12/05/24 18:15 Medications Medications Current Medications Acetaminophen (Acetaminophen 325 Mg Tablet) 650 mg PO Q6H PRN PRN Reason: Headache/Pain, Scale 1-10 Last Admin: 12/08/24 11:23 Dose: 650 mg Al Hydroxide/Mg Hydroxide (Magnesium Hydrox/Alum Hydrox 30 Ml Oral.Susp) 30 ml PO Q6H PRN PRN Reason: Heartburn/Nausea Cyclobenzaprine HCl (Cyclobenzaprine Hcl 10 Mg Tablet) 10 mg PO TID PRN PRN Reason: leg spasm and pain Last Admin: 12/08/24 18:43 Dose: 10 mg Gabapentin (Gabapentin 100 Mg Capsule) 100 mg PO BEDTIME [facility] Last Admin: 12/09/24 20:16 Dose: 100 mg Hydroxyzine HCl (Hydroxyzine Hcl 25 Mg Tablet) 25 mg PO Q6H PRN PRN Reason: mild anxiety [place] Carbonate ([place] Carbonate 300 Mg Tablet) 450 mg PO BID [facility] Last Admin: 12/10/24 08:45 Dose: 450 mg Lorazepam (Lorazepam 1 Mg Tablet) 1 mg PO TID PRN PRN Reason: Anxiety Last Admin: 12/07/24 12:08 Dose: 1 mg Magnesium Hydroxide (Milk Of Magnesia 30 Ml Oral.Susp) 30 ml PO DAILY PRN PRN Reason: Constipation Nicotine Polacrilex (Nicotine Polacrilex 2 Mg Gum) 4 mg BUCCAL Q2H PRN PRN Reason: Nicotine Cravings Olanzapine (Olanzapine Odt 10 Mg Tab.Rapdis) 10 mg TRANSLINGU BID MIRELLA Last Admin: 12/10/24 08:45 Dose: 10 mg Olanzapine (Olanzapine 5 Mg Tablet) 5 mg PO TID PRN PRN Reason: agitation Last Admin: 12/08/24 18:43 Dose: 5 mg Trazodone HCl (Trazodone Hcl 50 Mg Tablet) 50 mg PO BEDTIME MRX1 PRN PRN Reason: Insomnia Last Admin: 12/09/24 20:16 Dose: 50 mg Allergies Allergies Allergy/AdvReac Type Severity Reaction Status Date / Time No Known Allergies Allergy Verified 12/05/24 14:02 Assessment & Plan Assessment & Plan (1) Chronic schizophrenia: Status: Acute Code(s): F20.9 - Schizophrenia, unspecified Plan Admit, CV, 15 minute checks Restart [place], Olanzapine, Gabapentin Collateral contact Diagnostics as needed Discharge planning. 12/09: calm, no requests or complaints. med-compliant. continue current mgmt. 3: asking about when he will be discharged, informed of wednesday decision. continue current mgmt. no behavioral events. Reason for continued inpatient stay Substantial Risk for: inability to function Time Spent With Patient Time: Total time managing care of this patient today ____ minutes.
[2024-12-10 20:00] VITALS: BP 139/86; PULSE 100; TEMP 36.8; O2SAT 97
[2024-12-10] MEDS: Gabapentin 100 MG CAPSULE PO (20:35)
[2024-12-10] MEDS: traZODone HCL 50 MG TABLET PO (20:37)
[2024-12-11 07:57] VITALS: BP 131/68; PULSE 71; TEMP 37.2; O2SAT 99
[2024-12-11] MEDS: Lithium Carbonate 300 MG TABLET 450 MG PO ×2 (09:39→20:58)
[2024-12-11] MEDS: OLANZapine ODT 10 MG TAB.RAPDIS TRANSLINGU ×2 (09:41→20:57)
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
[2024-12-11] MEDS: Acetaminophen 325 MG TABLET 650 MG PO (17:49)
[2024-12-11 19:48] VITALS: BP 146/86; PULSE 106; RESP 18; TEMP 36.9; O2SAT 96
[2024-12-11] MEDS: Cyclobenzaprine HCl 10 MG TABLET PO (20:57)
[2024-12-11] MEDS: Gabapentin 100 MG CAPSULE PO (20:57)
[2024-12-11] MEDS: traZODone HCL 50 MG TABLET PO (20:58)
[2024-12-12 08:05] VITALS: BP 125/70; PULSE 80; RESP 16; TEMP 36.9; O2SAT 97
[2024-12-12 08:34] LABS: Lithium 0.32 mmol/L (0.60-1.20)
[2024-12-12] MEDS: Lithium Carbonate 300 MG TABLET 450 MG PO (08:34)
[2024-12-12] MEDS: OLANZapine ODT 10 MG TAB.RAPDIS TRANSLINGU (08:35)
[2024-12-12 08:41] LABS: Estimated Average Glucose 105 mg/dL; Hemoglobin A1C 128.9845 umol/L; Hemoglobin A1c % 5.3 % (<6.0); Total Hemoglobin (HGBA1C) 3766.9025 umol/L
[2024-12-12 08:51] LABS: Blood Urea Nitrogen 12 mg/dL (9-16); Cholesterol 144 mg/dL (<200); Creatinine Clr Calc Pharmacy 176.7; Estimated Glomerular Filt Rate > 60; HDL Cholesterol 31 mg/dL (>40); LDL Cholesterol Calculated 72 mg/dL (<100); Triglycerides 208 mg/dL (<150)
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
[2024-12-12 09:30] LABS: TSH reflex Free T4 1.07 uIU/mL (0.32-4.0)
== END 2024-12-12 10:47 | disposition home or self-care (01) | DRG 885 ==
LOC: HO.ED 16:39 → HO.PM5 12-07 09:34
PROVIDERS: Emergency Medicine; Admitting Provider Psychiatry & Neurology Psychiatry; Emergency Provider Student in an Organized Health Care Education/Training Program; Visit Provider Psychiatry & Neurology Psychiatry
DX: F20.9 Schizophrenia, unspecified (principal); Z78.1 Physical restraint status; Z91.148 Patient's other noncompliance with medication regimen for other reason; Z79.899 Other long term (current) drug therapy
CPT/HCPCS: 36415; 80053; 80061; 80178; 80307; 81003; 82565; 83036; 84443; 84520; 85025; 93005; 99285; J2060; J2250; J2359; S9485

== ENCOUNTER → 2024-12-07 07:37 | Outpatient (BNV) | payer MEDICARE, MEDICAID, SELFPAY | PROVIDERS: Admitting Provider Psychiatry & Neurology Psychiatry; Emergency Provider Student in an Organized Health Care Education/Training Program; Visit Provider Internal Medicine Cardiovascular Disease | DX: R00.0 Tachycardia, unspecified (principal) | CPT/HCPCS: 93010 ==

== ENCOUNTER → 2024-12-07 09:26 | Outpatient (BNV) | payer MEDICARE, MEDICAID, SELFPAY | PROVIDERS: Admitting Provider Psychiatry & Neurology Psychiatry; Emergency Provider Student in an Organized Health Care Education/Training Program; Visit Provider Psychiatry & Neurology Psychiatry | DX: F20.1 Disorganized schizophrenia (principal) | CPT/HCPCS: 90792; 99231; 99232; 99239; 99499 ==